=== PATIENT | female | born 1980 | race Caucasian/White ===

== ENCOUNTER 2020-04-28 10:11 | Emergency (ER) | payer MEDICARE, MEDICAID, SELFPAY ==
[2020-04-28 10:20] VITALS: BP 141/93; PULSE 66; RESP 20; TEMP 36.3; O2SAT 99
--- NOTE | 2020-04-28 10:24 | ED.URI ---
HPI - URI/Sore Throat General Chief Complaint: Upper Respiratory Infection Stated Complaint: sore throat/ear pain Time Seen by Provider: 04/28/20 10:24 Source: patient and RN notes reviewed History of Present Illness HPI Narrative: Patient is a 40-year-old female who presents the urgent care with complaints of bilateral otalgia, worse on the right, sore throat, postnasal drainage and congestion. Patient states that she has had exposure to strep with someone in the household. States that she has been using Mucinex and cold and flu medication. Denies of any fever, nausea, vomiting. No other acute complaints. No acute distress noted. Patient aware of the plan of care. Some parts of this dictation were generated by voice recognition software and may contain typographical and/or grammatical inaccuracies. Related Data Allergies Allergy/AdvReac Type Severity Reaction Status Date / Time duloxetine Allergy Severe Anaphylactic Verified 04/28/20 10:32 Shock sertraline Allergy Severe Anaphylactic Verified 04/28/20 10:32 Shock Penicillins Allergy Mild Rash Verified 04/28/20 10:32 Sulfa (Sulfonamide AdvReac Mild Confusion Verified 04/28/20 10:32 Antibiotics) sulfamethoxazole AdvReac Unknown Confusion Verified 04/28/20 10:32 trimethoprim AdvReac Unknown Confusion Verified 04/28/20 10:32 cephalexin [From Keflex] AdvReac Confusion Verified 04/28/20 10:32 Review of Systems Review of Systems: Narrative: CONSTITUTIONAL: Denies fever, chills, or sweats. EYES: Denies visual changes, redness, or discharge. ENT: Reports of otalgia, congestion, sore throat CARDIOVASCULAR: Denies chest pain, palpitations, or edema. RESPIRATORY: Denies cough or dyspnea. GASTROINTESTINAL: Denies abdominal pain, nausea, vomiting, or diarrhea. GENITOURINARY: Denies dysuria or hematuria. SKIN: Denies rash or itching. MUSCULOSKELETAL: Denies back pain, joint pain, or myalgia. NEUROLOGIC: Denies headache, numbness, or weakness. All other systems reviewed are negative, except as documented in HPI. PMFSH Comments At the time of my signature, I reviewed and agree with the nursing past medical, surgical, social, and family history. There is no relevant family history pertinent to the patient complaint. Exam Narrative: Exam Narrative: GENERAL: This is a well-nourished, well-developed patient, in no apparent distress. HEAD: normocephalic, atraumatic. EYES: PERRL. Sclera clear/white. Vision is grossly intact. EARS: External ears normal, auditory canals clear and without drainage, TMs normal without perforation. Hearing grossly intact. NOSE: External nose normal with no obvious nasal discharge, nares without redness, no rhinorrhea. THROAT: Mucous membranes moist, posterior pharynx clear. Mild postnasal drainage NECK: Neck supple, CARDIOVASCULAR: Regular rate and rhythm without murmurs, gallops, or rubs. RESPIRATORY: Clear to auscultation. Breath sounds equal bilaterally. No wheezes, rales, or rhonchi. SKIN: warm, intact with no suspicious lesions or rash, good texture and turgor. NEURO: awake, alert, and oriented to person, place and time. There were no obvious focal neurologic abnormalities. EXTREMITIES: No clubbing, cyanosis, or edema. Course Vital Signs Vital signs: Vital Signs Temperature 97.3 F L 04/28/20 10:20 Pulse Rate 66 04/28/20 10:20 Respiratory Rate 20 04/28/20 10:20 Blood Pressure 141/93 H 04/28/20 10:20 Pulse Oximetry 99 04/28/20 10:20 Temperature 97.3 F L 04/28/20 10:20 Pulse Rate 66 04/28/20 10:20 Respiratory Rate 20 04/28/20 10:20 Blood Pressure 141/93 H 04/28/20 10:20 Pulse Oximetry 99 04/28/20 10:20 Reviewed-patient is informed that they may have pre-hypertension or hypertension based on a blood pressure reading in the department. I recommend the patient call the primary care provider listed on their discharge instructions or a physician of their choice this week to arrange follow-up for further evaluation of
== END 2020-04-28 10:45 | disposition home or self-care (01) ==
PROVIDERS: Emergency Provider Nurse Practitioner Family; PCP Nurse Practitioner Family
DX: J02.9 Acute pharyngitis, unspecified (principal); J45.909 Unspecified asthma, uncomplicated; K21.9 Gastro-esophageal reflux disease without esophagitis; N80.9 Endometriosis, unspecified; F41.9 Anxiety disorder, unspecified; F31.9 Bipolar disorder, unspecified
CPT/HCPCS: 87081; 87880; 99203; G0463

== ENCOUNTER 2021-09-17 16:57 | Emergency (ER) | payer MEDICARE, MEDICAID, SELFPAY ==
--- NOTE | 2021-09-17 17:07 | ED.GENADULT ---
HPI - General Adult General Chief complaint: Headache Stated complaint: Headache/Nausea Time Seen by Provider: 09/17/21 17:15 Source: patient Mode of arrival: ambulatory Limitations: no limitations History of Present Illness HPI narrative: 41-year-old female presented for complaint of headache/migraine, onset yesterday with nausea and vomiting, endorses associated light and sound sensitivity. She has tried Imitrex, Excedrin, Tylenol and ibuprofen without relief. Denies head trauma. Endorses chronic diarrhea, denies chest pain, shortness of breath or cough. She is vaccinated for COVID. Related Data Home Medications Medication Instructions Recorded Confirmed albuterol sulfate [Ventolin HFA] 2 puff INHALATION Q4H 04/28/20 09/17/21 hydroxychloroquine 200 mg PO DAILY 04/28/20 09/17/21 hyoscyamine sulfate 0.125 mg PO Q6H PRN 04/28/20 09/17/21 montelukast 10 mg PO DAILY 04/28/20 09/17/21 pantoprazole 40 mg PO BID 04/28/20 09/17/21 cariprazine [Vraylar] mg 09/17/21 escitalopram oxalate mg 09/17/21 famotidine 09/17/21 fluticasone furoate-vilanterol INHALATION 09/17/21 [Breo Ellipta] hydroxyzine HCl 09/17/21 leflunomide mg 09/17/21 lorazepam 09/17/21 metformin mg PO 09/17/21 sumatriptan succinate mg PO 09/17/21 tofacitinib [Xeljanz XR] mg PO 09/17/21 topiramate 09/17/21 Allergies Allergy/AdvReac Type Severity Reaction Status Date / Time duloxetine Allergy Severe Anaphylactic Verified 09/17/21 17:18 Shock sertraline Allergy Severe Anaphylactic Verified 09/17/21 17:18 Shock Penicillins Allergy Mild Rash Verified 09/17/21 17:18 Sulfa (Sulfonamide AdvReac Mild Confusion Verified 09/17/21 17:18 Antibiotics) sulfamethoxazole AdvReac Unknown Confusion Verified 09/17/21 17:18 trimethoprim AdvReac Unknown Confusion Verified 09/17/21 17:18 cephalexin [From Keflex] AdvReac Confusion Verified 09/17/21 17:18 Review of Systems Review of Systems: CONSTITUTIONAL: Denies body aches, fever, chills, or sweats. EYES: Endorses light sensitivity denies visual changes, redness, or discharge. ENT: Endorses some sensitivity denies rhinorrhea, congestion, sore throat, or otalgia. CARDIOVASCULAR: Denies chest pain, palpitations, or edema. RESPIRATORY: Denies cough or dyspnea. GASTROINTESTINAL: Denies abdominal pain, endorses nausea, vomiting, diarrhea. GENITOURINARY: Denies dysuria or hematuria. SKIN: Denies rash, itching, or wounds. MUSCULOSKELETAL: Denies back pain, joint pain, or myalgia. NEUROLOGIC: Endorses headache denies numbness, tingling, or weakness. PSYCH: Endorses depression or anxiety. All systems reviewed & are unremarkable except as noted in HPI and below PMFSH Comments At time of signature, I have reviewed and agree with nursing past medical, surgical, social and family history unless otherwise noted. Please see nursing chart for further information. There is no relevant family history pertinent to the presenting complaint Exam Narrative: GENERAL: Appears in pain, in no acute distress. HEAD: Normocephalic, atraumatic. EYES: EOMI. No redness or drainage. Conjunctivae normal. ENT: Mucous membranes pink and moist. No rhinorrhea. TMs normal bilaterally. Throat normal. Uvula midline. NECK: Normal AROM. Supple. No lymphadenopathy. CHEST: No respiratory distress. Clear to auscultation. HEART: Regular rate and rhythm. No murmur appreciated. Normal peripheral pulses. ABDOMEN: Large, soft, nontender, nondistended, normal active bowel sounds. MUSCULOSKELETAL: No bony tenderness. EXTREMITIES: Normal range of motion. No edema. SKIN: Warm, dry, no rash. Capillary refill normal. Normal skin turgor. NEURO: No focal deficits. Alert and oriented x3. Gait steady. PSYCH: Normal affect. No signs of depression or anxiety. Course Course Emergency Course: Pt reports improvement in sx after toradol and zofran and benadryl, requesting dc home. Patient is aware of diagnosis, understands and agrees to meri
[2021-09-17 17:10] VITALS: BP 129/79; PULSE 81; RESP 18; TEMP 37.1; O2SAT 98
[2021-09-17] MEDS: ONDANSETRON HCL ODT 4 MG TABLET SUBLINGUAL (17:35)
[2021-09-17] MEDS: diphenhydrAMINE HCl CAP 25 MG CAPSULE PO (17:35)
[2021-09-17] MEDS: KETOROLAC (*BKC) 60 MG/2 ML VIAL IM (17:35)
--- NOTE | 2021-09-17 17:57 | PC.NURSE ---
Pt reports improvement in symptoms, pain 5/10 and decrease in nausea.
== END 2021-09-17 18:15 | disposition home or self-care (01) ==
PROVIDERS: Emergency Provider Nurse Practitioner Family; PCP Nurse Practitioner Family
DX: G43.909 Migraine, unspecified, not intractable, without status migrainosus (principal); J45.909 Unspecified asthma, uncomplicated; K21.9 Gastro-esophageal reflux disease without esophagitis; N80.9 Endometriosis, unspecified; E88.81 Metabolic syndrome and other insulin resistance; H26.9 Unspecified cataract; F41.9 Anxiety disorder, unspecified; F31.9 Bipolar disorder, unspecified
CPT/HCPCS: 96372; 99213; A9270; G0463; J1885

== ENCOUNTER 2021-11-16 18:34 | Emergency (ER) | payer MEDICARE, MEDICAID, SELFPAY ==
--- NOTE | 2021-11-16 18:37 | ED.HA ---
HPI - Headache General Chief Complaint: Upper Respiratory Infection Stated Complaint: migraine Time Seen by Provider: 11/16/21 18:38 Source: patient and RN notes reviewed History of Present Illness HPI Narrative: Patient is a 41-year-old female who presents the urgent care with complaints of migraine. Patient states she has a history of migraines and does have prescription Imitrex. Patient states that she did take 1 at 6 AM and has not yet refilled the medication that was called in for her this morning. Patient states that she did try Excedrin Migraine without much relief. States that she has her normal sensitivity to light and sound. Patient also reported of some nausea and vomiting. Denies of any vision change. States that the migraine started approximately 4 days ago. States that the last time she was at her facility the migraine cocktail improved her symptoms. No other acute complaints. No acute distress noted. Patient aware of the plan of care. Some parts of this dictation were generated by voice recognition software and may contain typographical and/or grammatical inaccuracies. Related Data Home Medications Medication Instructions Recorded Confirmed albuterol sulfate [Ventolin HFA] 2 puff INHALATION Q4H PRN 04/28/20 11/16/21 hydroxychloroquine 200 mg PO BID 04/28/20 11/16/21 montelukast 10 mg PO DAILY 04/28/20 11/16/21 pantoprazole 40 mg PO DAILY 04/28/20 11/16/21 cariprazine [Vraylar] 1.5 mg PO HS 09/17/21 11/16/21 escitalopram oxalate 20 mg PO DAILY 09/17/21 11/16/21 famotidine 20 mg PO DAILY 09/17/21 11/16/21 fluticasone furoate-vilanterol 1 inh INHALATION BID 09/17/21 11/16/21 [Breo Ellipta] hydroxyzine HCl 25 mg PO HS 09/17/21 11/16/21 leflunomide 20 mg PO DAILY 09/17/21 11/16/21 lorazepam 0.5 mg PO DAILY 09/17/21 11/16/21 metformin 500 mg PO DAILY 09/17/21 11/16/21 sumatriptan succinate 100 mg PO PRN PRN 09/17/21 11/16/21 topiramate 50 mg PO DAILY 09/17/21 11/16/21 enalapril maleate 5 mg PO BID 11/16/21 11/16/21 ergocalciferol (vitamin D2) 1,250 mcg PO WEEKLY 11/16/21 11/16/21 fluticasone propionate 2 spray INTRANASAL DAILY 11/16/21 11/16/21 upadacitinib [Rinvoq] 15 mg PO DAILY 11/16/21 11/16/21 Allergies Allergy/AdvReac Type Severity Reaction Status Date / Time duloxetine Allergy Severe Anaphylactic Verified 11/16/21 18:55 Shock sertraline Allergy Severe Anaphylactic Verified 11/16/21 18:55 Shock Penicillins Allergy Mild Rash Verified 11/16/21 18:55 Sulfa (Sulfonamide AdvReac Mild Confusion Verified 11/16/21 18:55 Antibiotics) sulfamethoxazole AdvReac Unknown Confusion Verified 11/16/21 18:55 trimethoprim AdvReac Unknown Confusion Verified 11/16/21 18:55 cephalexin [From Keflex] AdvReac Confusion Verified 11/16/21 18:55 Review of Systems Review of Systems: CONSTITUTIONAL: Denies fever, chills, or sweats. EYES: Denies visual changes, redness, or discharge. ENT: Denies rhinorrhea, congestion, sore throat, or otalgia. CARDIOVASCULAR: Denies chest pain, palpitations, or edema. RESPIRATORY: Denies cough or dyspnea. GASTROINTESTINAL: Denies abdominal pain, nausea, vomiting, or diarrhea. GENITOURINARY: Denies dysuria or hematuria. SKIN: Denies rash or itching. MUSCULOSKELETAL: Denies back pain, joint pain, or myalgia. NEUROLOGIC: Reports of headache All other systems reviewed are negative, except as documented in HPI. PMFSH Comments At the time of my signature, I reviewed and agree with the nursing past medical, surgical, social, and family history. There is no relevant family history pertinent to the patient complaint. Exam Narrative: GENERAL: This is a well-nourished, well-developed patient, in no apparent distress. HEAD: normocephalic, atraumatic. EYES: PERRL. Sclera clear/white. Vision is grossly intact. EARS: External ears normal, auditory canals clear and without drainage, TMs normal without perforation. Hearing grossly intact. NOSE: External nose normal with no obvious nasal dischar
[2021-11-16 18:39] VITALS: BP 126/80; PULSE 88; RESP 18; TEMP 36.4; O2SAT 99
[2021-11-16] MEDS: ONDANSETRON HCL ODT 4 MG TABLET PO (19:23)
[2021-11-16] MEDS: KETOROLAC (*BKC) 60 MG/2 ML VIAL IM (19:24)
[2021-11-16] MEDS: diphenhydrAMINE HCl CAP 25 MG CAPSULE PO (19:25)
== END 2021-11-16 19:54 | disposition home or self-care (01) ==
PROVIDERS: Emergency Provider Nurse Practitioner Family; PCP Nurse Practitioner Family
DX: G43.909 Migraine, unspecified, not intractable, without status migrainosus (principal); J45.909 Unspecified asthma, uncomplicated; K21.9 Gastro-esophageal reflux disease without esophagitis; N80.9 Endometriosis, unspecified; F41.9 Anxiety disorder, unspecified; F32.A Depression, unspecified; Z79.84 Long term (current) use of oral hypoglycemic drugs
CPT/HCPCS: 96372; 99213; A9270; G0463; J1885

== ENCOUNTER 2022-06-07 09:29 | Emergency (ER) | payer MEDICARE, MEDICAID, SELFPAY ==
[2022-06-07 09:34] VITALS: BP 154/89; PULSE 86; RESP 20; TEMP 36.7; O2SAT 99
--- NOTE | 2022-06-07 10:14 | ED.SOB ---
HPI - SOB/Dyspnea General Chief Complaint: Shortness of Breath/Dyspnea Stated Complaint: Shortness of Breath Time Seen by Provider: 06/07/22 09:33 Source: patient and RN notes reviewed Mode of arrival: ambulatory Limitations: no limitations History of Present Illness HPI Narrative: 42-year-old female presents concern for shortness of breath. Reports several week history of cough, nasal congestion, rhinorrhea. Reports over the last 3 days her cough has worsened and she has developed shortness of breath at rest and with exertion, stridor. She reports a history of tracheal stenosis. She reports she has never been hospitalized for tracheal stenosis, never had have a breathing tube. She reports she has been taking [id number] medications without relief, she is nebulizer treatment this morning at 6:30 a.m.. She denies fever, aches, chills. She reports she has had a negative RSV and test MD elicited complaint: shortness of breath Related Data Home Medications Medication Instructions Recorded Confirmed albuterol sulfate 90 mcg/actuation 2 puff inhalation Q4H PRN 04/28/20 06/07/22 aerosol inhaler (Ventolin HFA) Shortness Of Breath Or Wheezing hydroxychloroquine 200 mg tablet 200 mg PO BID 04/28/20 06/07/22 montelukast 10 mg tablet 10 mg PO DAILY 04/28/20 06/07/22 pantoprazole 40 mg tablet,delayed 40 mg PO DAILY 04/28/20 06/07/22 release cariprazine 1.5 mg capsule 3 mg PO HS 09/17/21 06/07/22 (Vraylar) escitalopram oxalate 20 mg tablet 20 mg PO DAILY 09/17/21 06/07/22 leflunomide 20 mg tablet 20 mg PO DAILY 09/17/21 06/07/22 lorazepam 0.5 mg tablet 0.5 mg PO DAILY 09/17/21 06/07/22 metformin 500 mg tablet,extended 500 mg PO DAILY 09/17/21 06/07/22 release 24 hr sumatriptan succinate 100 mg tablet 100 mg PO PRN PRN Headache 09/17/21 06/07/22 topiramate 50 mg tablet 50 mg PO DAILY 09/17/21 06/07/22 enalapril maleate 5 mg tablet 5 mg PO BID 11/16/21 06/07/22 ergocalciferol (vitamin D2) 1,250 1,250 mcg PO WEEKLY 11/16/21 06/07/22 mcg (50,000 unit) capsule dicyclomine 10 mg capsule 10 mg DAILY 06/07/22 06/07/22 golimumab 12.5 mg/mL intravenous mg IV 06/07/22 06/07/22 solution (Simponi ARIA) ramelteon 8 mg tablet 8 mg PO 06/07/22 Allergies Allergy/AdvReac Type Severity Reaction Status Date / Time duloxetine Allergy Severe Anaphylactic Verified 06/07/22 10:01 Shock sertraline Allergy Severe Anaphylactic Verified 06/07/22 10:01 Shock Penicillins Allergy Mild Rash Verified 06/07/22 10:01 Sulfa (Sulfonamide AdvReac Mild Confusion Verified 06/07/22 10:01 Antibiotics) sulfamethoxazole AdvReac Unknown Confusion Verified 06/07/22 10:01 trimethoprim AdvReac Unknown Confusion Verified 06/07/22 10:01 cephalexin [From Keflex] AdvReac Confusion Verified 06/07/22 10:01 Review of Systems Review of Systems: CONSTITUTIONAL: Reports malaise. Denies chills, sweats, or fever. EYES: Denies visual changes, redness, or discharge. ENT: Reports rhinorrhea, congestion, sinus pain, otalgia and sore throat. CARDIOVASCULAR: Denies chest pain, palpitations, or edema. RESPIRATORY: Reports cough, stridor, dyspnea. GASTROINTESTINAL: Denies abdominal pain, nausea, vomiting, diarrhea SKIN: Denies rash or itching. MUSCULOSKELETAL: Denies myalgia. NEUROLOGIC: Denies headache. All systems reviewed & are unremarkable except as noted in HPI and below PMFSH Comments At time of signature, agree with nursing past medical, surgical, social and family history. There is no relevant family history pertinent to the presenting complaint Exam Narrative: GENERAL: Nontoxic-appearing And in no acute distress. HEAD: Normocephalic EYES: PERRLA, conjunctivae clear ENT: Nares clear. Mucous membranes moist. TM pearly martínez with dull light reflex bilaterally; no tragal tenderness. Oropharynx not erythematous without lesions. Tonsils not enlarged and without exudate, no drooling, mild hoarseness, no trismus, uvula midline. No visible airway obstruction
[2022-06-07] MEDS: methylPREDNISolone SOD SUCC 125 MG VIAL IM (10:28)
[2022-06-07 10:32] VITALS: PULSE 98; RESP 16; O2SAT 98
[2022-06-07] MEDS: racEPINEPHrine 2.25% NEBU SOLN 0.5 ML VIAL.NEB INHALATION (10:32)
--- NOTE | 2022-06-07 10:38 | PC.NURSE ---
Breathing treatment started. Diluted with 3 mL NS per ENVIRONMENTAL SERVICES TECHNICIAN Yajaira. Procedure, side effects and risks explained. Proper technique demonstrated.
[2022-06-07 10:42] VITALS: PULSE 99; RESP 18; O2SAT 98
[2022-06-07 11:02] VITALS: PULSE 99; RESP 18; O2SAT 98
--- NOTE | 2022-06-07 11:02 | PC.NURSE ---
Tolerated breathing treatment well. SpO2 98% on room air, HR 99 percent. Lung sounds clear, moving air well. Improvement from prior to treatment.
[2022-06-07 11:15] VITALS: PULSE 90; RESP 16; O2SAT 95
== END 2022-06-07 11:15 | disposition home or self-care (01) ==
PROVIDERS: Emergency Provider Nurse Practitioner; PCP Nurse Practitioner Family
DX: J20.9 Acute bronchitis, unspecified (principal); Z79.84 Long term (current) use of oral hypoglycemic drugs
CPT/HCPCS: 94640; 96372; 99213; G0463; J2930

== ENCOUNTER 2022-06-13 12:55 | Emergency (ER) | payer MEDICARE, MEDICAID, SELFPAY ==
--- NOTE | ~2022-06-13 | XR_ITS ---
EXAMINATION: XR knee LT min 4V DATE: 06/13/2022 14:54 INDICATION: Left knee swelling and erythema. TECHNIQUE: 5 views of left knee were obtained. COMPARISON: None. FINDINGS: Bone alignment is normal. No fracture. There is mild tricompartmental osteoarthritis. No kn ee joint effusion. There is anterior knee soft tissue swelling. IMPRESSION: 1. Mild left knee osteoarthritis. Reviewed, dictated and finalized at location A. R [employer]
[2022-06-13 13:10] VITALS: BP 152/89; PULSE 88; RESP 24; TEMP 36.5; O2SAT 98
--- NOTE | 2022-06-13 14:28 | ED.EXTPRO ---
HPI - Extremity Problem General Chief complaint: Extremity Problem,Nontraumatic Stated complaint: Left knee red -swollen Time Seen by Provider: 06/13/22 14:28 Source: patient and RN notes reviewed Mode of arrival: ambulatory Limitations: no limitations History of Present Illness HPI Narrative: 42-year-old female presents concern for left knee redness, swelling, warmth, pain. Reports pain is worse when she is walking on it. She denies any injury or trauma. She denies fever, aches, chills, sweats. She denies history of gout MD Complaint: extremity pain Related Data Home Medications Medication Instructions Recorded Confirmed albuterol sulfate 90 mcg/actuation 2 puff inhalation Q4H PRN 04/28/20 06/07/22 aerosol inhaler (Ventolin HFA) Shortness Of Breath Or Wheezing hydroxychloroquine 200 mg tablet 200 mg PO BID 04/28/20 06/07/22 montelukast 10 mg tablet 10 mg PO DAILY 04/28/20 06/07/22 pantoprazole 40 mg tablet,delayed 40 mg PO DAILY 04/28/20 06/07/22 release cariprazine 1.5 mg capsule 3 mg PO HS 09/17/21 06/07/22 (Vraylar) escitalopram oxalate 20 mg tablet 20 mg PO DAILY 09/17/21 06/07/22 leflunomide 20 mg tablet 20 mg PO DAILY 09/17/21 06/07/22 lorazepam 0.5 mg tablet 0.5 mg PO DAILY 09/17/21 06/07/22 metformin 500 mg tablet,extended 500 mg PO DAILY 09/17/21 06/07/22 release 24 hr sumatriptan succinate 100 mg tablet 100 mg PO PRN PRN Headache 09/17/21 06/07/22 topiramate 50 mg tablet 50 mg PO DAILY 09/17/21 06/07/22 enalapril maleate 5 mg tablet 5 mg PO BID 11/16/21 06/07/22 ergocalciferol (vitamin D2) 1,250 1,250 mcg PO WEEKLY 11/16/21 06/07/22 mcg (50,000 unit) capsule dicyclomine 10 mg capsule 10 mg DAILY 06/07/22 06/07/22 golimumab 12.5 mg/mL intravenous mg IV 06/07/22 06/07/22 solution (Simponi ARIA) ramelteon 8 mg tablet 8 mg PO 06/07/22 Allergies Allergy/AdvReac Type Severity Reaction Status Date / Time duloxetine Allergy Severe Anaphylactic Verified 06/07/22 10:01 Shock sertraline Allergy Severe Anaphylactic Verified 06/07/22 10:01 Shock Penicillins Allergy Mild Rash Verified 06/07/22 10:01 Sulfa (Sulfonamide AdvReac Mild Confusion Verified 06/07/22 10:01 Antibiotics) sulfamethoxazole AdvReac Unknown Confusion Verified 06/07/22 10:01 trimethoprim AdvReac Unknown Confusion Verified 06/07/22 10:01 cephalexin [From Keflex] AdvReac Confusion Verified 06/07/22 10:01 Review of Systems Review of Systems: CONSTITUTIONAL: Denies malaise, chills, sweats, or fever. CARDIOVASCULAR: Denies chest pain, palpitations, or edema. RESPIRATORY: Denies cough or dyspnea. SKIN: Denies rash or itching, bruising, redness, swelling. MUSCULOSKELETAL: Reports left knee redness, warmth, swelling, pain NEUROLOGIC: Denies numbness, weakness All systems reviewed & are unremarkable except as noted in HPI and below PMFSH Comments At time of signature, agree with nursing past medical, surgical, social and family history. There is no relevant family history pertinent to the presenting complaint Exam Narrative: GENERAL: Well-appearing, well-nourished, and in no acute distress. HEAD: Normocephalic, atraumatic. EYES: PERRLA, conjunctivae clear NECK: Supple. CHEST: Speaks in full sentences. No respiratory distress. HEART: Regular rate and rhythm. Normal and equal peripheral pulses. EXTREMITIES: Left knee has grossly normal strength and sensation, normal range of motion. No edema or ecchymosis. 5/5 strength with knee flexion and extension. Normal sensation with sensitivity to light touch and pain. General the tenderness with erythema, warmth with well-defined edges, no gross edema or induration noted. No open wounds, no skin tenting, no devitalized tissue or atrophy, no trophic changes, no obvious deformity, alignment normal, nearby joints and structures intact. Distal pulses palpable and equal bilaterally, skin warm, dry, pink. Capillary refill less than 3 seconds. SKIN: Warm, dry, no rash. NEURO: Alert and oriented x3
== END 2022-06-13 15:25 | disposition home or self-care (01) ==
PROVIDERS: Emergency Provider Nurse Practitioner; PCP Nurse Practitioner Family
DX: L03.116 Cellulitis of left lower limb (principal); J45.909 Unspecified asthma, uncomplicated; K21.9 Gastro-esophageal reflux disease without esophagitis; E88.81 Metabolic syndrome and other insulin resistance; N80.9 Endometriosis, unspecified
CPT/HCPCS: 73564; 99213; G0463

== ENCOUNTER 2022-06-28 08:48 | Emergency (ER) | payer MEDICARE, MEDICAID, SELFPAY ==
[2022-06-28 08:58] VITALS: BP 130/79; PULSE 83; RESP 20; TEMP 36.4; O2SAT 98
--- NOTE | 2022-06-28 09:35 | ED.URI ---
HPI - URI/Sore Throat General Chief Complaint: Upper Respiratory Infection Stated Complaint: Cough/Sore Throat Time Seen by Provider: 06/28/22 09:36 Source: patient and RN notes reviewed Mode of arrival: ambulatory Limitations: no limitations History of Present Illness HPI Narrative: 42-year-old female with a history of asthma and tracheal stenosis presented for complaint of wheezing associated with headache, body aches, sinus pressure/congestion, cough, fever/chills. 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 She has been using her albuterol nebulizer as needed. She is chest pain, palpitations, nausea, vomiting, diarrhea. She is taking [place] and the Tylenol ibuprofen for symptoms. MD elicited complaint: cough Related Data Home Medications Medication Instructions Recorded Confirmed albuterol sulfate 90 mcg/actuation 2 puff inhalation Q4H PRN 04/28/20 06/07/22 aerosol inhaler (Ventolin HFA) Shortness Of Breath Or Wheezing hydroxychloroquine 200 mg tablet 200 mg PO BID 04/28/20 06/07/22 montelukast 10 mg tablet 10 mg PO DAILY 04/28/20 06/07/22 pantoprazole 40 mg tablet,delayed 40 mg PO DAILY 04/28/20 06/07/22 release cariprazine 1.5 mg capsule 3 mg PO HS 09/17/21 06/07/22 (Vraylar) escitalopram oxalate 20 mg tablet 20 mg PO DAILY 09/17/21 06/07/22 leflunomide 20 mg tablet 20 mg PO DAILY 09/17/21 06/07/22 lorazepam 0.5 mg tablet 0.5 mg PO DAILY 09/17/21 06/07/22 metformin 500 mg tablet,extended 500 mg PO DAILY 09/17/21 06/07/22 release 24 hr sumatriptan succinate 100 mg tablet 100 mg PO PRN PRN Headache 09/17/21 06/07/22 topiramate 50 mg tablet 50 mg PO DAILY 09/17/21 06/07/22 enalapril maleate 5 mg tablet 5 mg PO BID 11/16/21 06/07/22 ergocalciferol (vitamin D2) 1,250 1,250 mcg PO WEEKLY 11/16/21 06/07/22 mcg (50,000 unit) capsule dicyclomine 10 mg capsule 10 mg DAILY 06/07/22 06/07/22 golimumab 12.5 mg/mL intravenous mg IV 06/07/22 06/07/22 solution (Simponi ARIA) ramelteon 8 mg tablet 8 mg PO 06/07/22 Allergies Allergy/AdvReac Type Severity Reaction Status Date / Time duloxetine Allergy Severe Anaphylactic Verified 06/28/22 09:24 Shock sertraline Allergy Severe Anaphylactic Verified 06/28/22 09:24 Shock Penicillins Allergy Mild Rash Verified 06/28/22 09:24 Sulfa (Sulfonamide AdvReac Mild Confusion Verified 06/28/22 09:24 Antibiotics) sulfamethoxazole AdvReac Unknown Confusion Verified 06/28/22 09:24 trimethoprim AdvReac Unknown Confusion Verified 06/28/22 09:24 cephalexin [From Keflex] AdvReac Confusion Verified 06/28/22 09:24 Review of Systems Review of Systems: ROS per HPI Exam Narrative: GENERAL: Ill-appearing, nontoxic EYES: PERRLA, conjunctivae clear ENT: Mucous membranes moist. TMs pearly martínez with dull light reflex bilaterally; no tragal tenderness. No tripod positioning, muffled voice, soft palate or pharyngeal wall bulging NECK: Supple. No lymphadenopathy CHEST: Exp wheezing throughout all owens. No respiratory distress, speaks in full sentences. HEART: Regular rate and rhythm. No murmur heard. SKIN: Warm, dry, no rash. NEURO: Alert and oriented x3. PSYCH: Normal mood and affect Course Course Emergency Course: Patient is aware of diagnosis, understands and agrees to treatment plan. Anticipatory guidance given. Patient agrees to follow-up as directed and is aware of reasons to seek care at the emergency department. Portions of this record may have been created with voice recognition software Level of Care: Express Care Visit Vital Signs Vital signs: Vital Signs Temperature 97.6 F 06/28/22 08:58 Pulse Rate 83 06/28/22 08:58 Respiratory Rate 20 06/28/22 08:58 Blood Pressure 130/79 06/28/22 08:58 Pulse Oximetry 98 06/28/22 08:58 Oxygen Delivery Room Air 06/28/22 08:58 Temperature 97.6 F 06/28/22 08:58 Pulse Rate 83 06/28/22 08:58 Respiratory Rate 20 06/28/22 08:58 Blood Pressure 130/79
[2022-06-28] MEDS: predniSONE 20 MG TABLET 60 MG PO (09:50)
== END 2022-06-28 09:58 | disposition home or self-care (01) ==
PROVIDERS: Emergency Provider Nurse Practitioner Family; PCP Nurse Practitioner Family
DX: J40 Bronchitis, not specified as acute or chronic (principal)
CPT/HCPCS: 99213; G0463; J7512

== ENCOUNTER 2022-07-27 11:24 | Emergency (ER) | payer MEDICARE, MEDICAID, SELFPAY ==
--- NOTE | 2022-07-27 11:26 | ED.URI ---
HPI - URI/Sore Throat General Chief Complaint: Upper Respiratory Infection Stated Complaint: tracheal stenosis Time Seen by Provider: 07/27/22 11:26 Source: patient and RN notes reviewed History of Present Illness HPI Narrative: patient is a 42-year-old female presents to urgent care with complaints of flare tracheal stenosis. Patient states that her PCP will not see her for any upper respiratory related condition. Patient states that she always gets steroids and it makes it better. Patient states that it worsened with the weather change a couple weeks ago and then again approximately 5 days ago. The patient denies any other acute complaints. States that she has seen a tv news director is currently seen ENT for the issue. Patient aware of the plan of care. Some parts of this dictation were generated by voice recognition software and may contain typographical and/or grammatical inaccuracies. Related Data Home Medications Medication Instructions Recorded Confirmed hydroxychloroquine 200 mg tablet 200 mg PO BID 04/28/20 07/27/22 montelukast 10 mg tablet 10 mg PO DAILY 04/28/20 07/27/22 pantoprazole 40 mg tablet,delayed 40 mg PO DAILY 04/28/20 07/27/22 release escitalopram oxalate 20 mg tablet 20 mg PO DAILY 09/17/21 07/27/22 leflunomide 20 mg tablet 20 mg PO DAILY 09/17/21 07/27/22 metformin 500 mg tablet,extended 500 mg PO DAILY 09/17/21 07/27/22 release 24 hr topiramate 50 mg tablet 50 mg PO DAILY 09/17/21 07/27/22 enalapril maleate 5 mg tablet 5 mg PO BID 11/16/21 07/27/22 ergocalciferol (vitamin D2) 1,250 1,250 mcg PO WEEKLY 11/16/21 07/27/22 mcg (50,000 unit) capsule cariprazine 3 mg capsule (Vraylar) 3 mg PO HS 06/28/22 07/27/22 pregabalin 75 mg capsule 75 mg PO BID 06/28/22 07/27/22 Allergies Allergy/AdvReac Type Severity Reaction Status Date / Time duloxetine Allergy Severe Anaphylactic Verified 07/27/22 11:36 Shock sertraline Allergy Severe Anaphylactic Verified 07/27/22 11:36 Shock Penicillins Allergy Mild Rash Verified 07/27/22 11:36 Sulfa (Sulfonamide AdvReac Mild Confusion Verified 07/27/22 11:36 Antibiotics) sulfamethoxazole AdvReac Unknown Confusion Verified 07/27/22 11:36 trimethoprim AdvReac Unknown Confusion Verified 07/27/22 11:36 cephalexin [From Keflex] AdvReac Confusion Verified 07/27/22 11:36 Review of Systems Review of Systems: CONSTITUTIONAL: Denies fever, chills, or sweats. EYES: Denies visual changes, redness, or discharge. ENT: Denies rhinorrhea, congestion, sore throat, or otalgia. CARDIOVASCULAR: Denies chest pain, palpitations, or edema. RESPIRATORY: Reports of shortness of breath due to tracheal stenosis GASTROINTESTINAL: Denies abdominal pain, nausea, vomiting, or diarrhea. GENITOURINARY: Denies dysuria or hematuria. SKIN: Denies rash or itching. MUSCULOSKELETAL: Denies back pain, joint pain, or myalgia. NEUROLOGIC: Denies headache, numbness, or weakness. PSYCHIATRIC: Denies anxiety or depression. All other systems reviewed are negative, except as documented in HPI. PMFSH Comments At the time of my signature, I reviewed and agree with the nursing past medical, surgical, social, and family history. There is no relevant family history pertinent to the patient complaint. Exam Narrative: GENERAL: This is a well-nourished, well-developed patient, severe obesity HEAD: normocephalic, atraumatic. EYES: PERRL. Sclera clear/white. Vision is grossly intact. EARS: External ears normal, auditory canals clear and without drainage, TMs normal without perforation. Hearing grossly intact. NOSE: External nose normal with no obvious nasal discharge, nares without redness, no rhinorrhea. THROAT: Mucous membranes moist, posterior pharynx clear. patent airway NECK: Neck supple, non-tender without lymphadenopathy CARDIOVASCULAR: Regular rate and rhythm without murmurs, gallops, or rubs. RESPIRATORY: Clear to auscultation. Breath sounds equal bilaterally. audible crackles SKIN: wa
[2022-07-27 11:29] VITALS: BP 150/90; PULSE 94; RESP 16; TEMP 36.1; O2SAT 99
== END 2022-07-27 11:43 | disposition home or self-care (01) ==
PROVIDERS: Emergency Provider Nurse Practitioner Family; PCP Nurse Practitioner Family
DX: J39.8 Other specified diseases of upper respiratory tract (principal); J45.909 Unspecified asthma, uncomplicated; M19.90 Unspecified osteoarthritis, unspecified site; E88.81 Metabolic syndrome and other insulin resistance; N80.9 Endometriosis, unspecified; F31.9 Bipolar disorder, unspecified
CPT/HCPCS: 99213; G0463

== ENCOUNTER 2023-03-30 12:13 | Emergency (ER) | payer MEDICARE, MEDICAID, SELFPAY ==
[2023-03-30 12:20] VITALS: BP 125/92; PULSE 75; RESP 16; TEMP 36.5; O2SAT 99
--- NOTE | 2023-03-30 12:29 | ED.GENADULT ---
HPI - General Adult General Chief complaint: Upper Respiratory Infection Stated complaint: Shortness Of Breath/Cough Source: patient and RN notes reviewed History of Present Illness HPI narrative: 42 year female presents urgent care with complaints headache, some congestion, and cough since Monday. Patient took a COVID test at home on Monday which was negative. Pt states her head and throat will hurt when she coughs. Pt states she hasn't slept in 3 nights b/c of the cough. Denies any chest pain, SOB, ear pain, N/V/D Pt has been using her inhaler and neb treatment at home with some relief. Related Data Home Medications Medication Instructions Recorded Confirmed hydroxychloroquine 200 mg tablet 200 mg PO BID 04/28/20 07/27/22 pantoprazole 40 mg tablet,delayed 40 mg PO DAILY 04/28/20 07/27/22 release escitalopram oxalate 20 mg tablet 20 mg PO DAILY 09/17/21 07/27/22 leflunomide 20 mg tablet 20 mg PO DAILY 09/17/21 07/27/22 metformin 500 mg tablet,extended 500 mg PO DAILY 09/17/21 07/27/22 release 24 hr topiramate 50 mg tablet 50 mg PO DAILY 09/17/21 07/27/22 enalapril maleate 5 mg tablet 5 mg PO BID 11/16/21 07/27/22 ergocalciferol (vitamin D2) 1,250 1,250 mcg PO WEEKLY 11/16/21 07/27/22 mcg (50,000 unit) capsule cariprazine 3 mg capsule (Vraylar) 3 mg PO HS 06/28/22 07/27/22 pregabalin 75 mg capsule 75 mg PO BID 06/28/22 07/27/22 Allergies Allergy/AdvReac Type Severity Reaction Status Date / Time duloxetine Allergy Severe Anaphylactic Verified 07/27/22 11:36 Shock sertraline Allergy Severe Anaphylactic Verified 07/27/22 11:36 Shock Penicillins Allergy Mild Rash Verified 07/27/22 11:36 Sulfa (Sulfonamide AdvReac Mild Confusion Verified 07/27/22 11:36 Antibiotics) sulfamethoxazole AdvReac Unknown Confusion Verified 07/27/22 11:36 trimethoprim AdvReac Unknown Confusion Verified 07/27/22 11:36 cephalexin [From Keflex] AdvReac Confusion Verified 07/27/22 11:36 Review of Systems Review of Systems: Pertinent positives and pertinent negatives per HPI. PMFSH Comments At the time of my signature, I reviewed and agree with the nursing past medical, surgical, social, and family history. There is no relevant family history pertinent to the patient complaint. Exam Narrative: GENERAL: This is a well-nourished, well-developed patient, in no apparent distress. HEAD: normocephalic, atraumatic. EYES: Sclera clear/white. Vision is grossly intact. EARS: External ears normal, auditory canals clear and without drainage, TMs normal without perforation. Hearing grossly intact. NOSE: External nose normal with no obvious nasal discharge, nares without redness, no rhinorrhea. THROAT: Mucous membranes moist, posterior pharynx clear. NECK: Neck supple, non-tender without lymphadenopathy, masses or thyromegaly. CARDIOVASCULAR: Regular rate and rhythm without murmurs, gallops, or rubs. RESPIRATORY: Clear to auscultation. Breath sounds equal bilaterally. No wheezes, rales, or rhonchi. Pt frequently coughing in exam room. GASTROINTESTINAL: Abdomen soft, non-tender, nondistended. Bowel sounds are active. No hepato-splenomegaly, or palpable masses. No guarding. SKIN: warm, intact with no suspicious lesions or rash, good texture and turgor. NEURO: awake, alert, and oriented to person, place and time. There were no obvious focal neurologic abnormalities. Course Course Level of Care: Express Care Visit Vital Signs Vital signs: Vital Signs Temperature 97.7 F 03/30/23 12:20 Pulse Rate 75 03/30/23 12:20 Respiratory Rate 16 03/30/23 12:20 Blood Pressure 125/92 H 03/30/23 12:20 Pulse Oximetry 99 03/30/23 12:20 Oxygen Delivery Room Air 03/30/23 12:20 Temperature 97.7 F 03/30/23 12:20 Pulse Rate 75 03/30/23 12:20 Respiratory Rate 16 03/30/23 12:20 Blood Pressure 125/92 H 03/30/23 12:20 Pulse Oximetry 99 03/30/23 12:20 Oxygen Delivery Room Air 03/30/23 12:20 reviewed. Medical
[2023-03-30] MEDS: predniSONE 20 MG TABLET 60 MG PO (12:42)
== END 2023-03-30 12:46 | disposition home or self-care (01) ==
PROVIDERS: Emergency Provider Nurse Practitioner Family; PCP Nurse Practitioner Family
DX: J40 Bronchitis, not specified as acute or chronic (principal); J45.909 Unspecified asthma, uncomplicated; M19.90 Unspecified osteoarthritis, unspecified site; E88.81 Metabolic syndrome and other insulin resistance; Z79.84 Long term (current) use of oral hypoglycemic drugs; N80.9 Endometriosis, unspecified
CPT/HCPCS: 99213; G0463; J7512

== ENCOUNTER 2023-11-05 17:34 | Emergency (ER) | payer MEDICARE, MEDICAID, SELFPAY ==
--- NOTE | 2023-11-05 17:41 | ED.URI ---
HPI - URI/Sore Throat General Chief Complaint: Unspecified Stated Complaint: Shortness of Breath History of Present Illness HPI Narrative: Patient possible allergic reaction to her Trulicity and or a flare of her tracheasl stenosis. Patient states she started Trulicity monday and woke up this am with her hoarseness. No shortness of breath and no chest pain. Patient states she has not had any problems with her stenosis in over one year. patient denies any trouble swallowing and no drooling. talking in full sentences. Related Data Home Medications Medication Instructions Recorded Confirmed hydroxychloroquine 200 mg tablet 200 mg PO BID 04/28/20 07/27/22 pantoprazole 40 mg tablet,delayed 40 mg PO DAILY 04/28/20 07/27/22 release escitalopram oxalate 20 mg tablet 20 mg PO DAILY 09/17/21 07/27/22 leflunomide 20 mg tablet 20 mg PO DAILY 09/17/21 07/27/22 metformin 500 mg tablet,extended 500 mg PO DAILY 09/17/21 07/27/22 release 24 hr topiramate 50 mg tablet 50 mg PO DAILY 09/17/21 07/27/22 enalapril maleate 5 mg tablet 5 mg PO BID 11/16/21 07/27/22 ergocalciferol (vitamin D2) 1,250 1,250 mcg PO WEEKLY 11/16/21 07/27/22 mcg (50,000 unit) capsule cariprazine 3 mg capsule (Vraylar) 3 mg PO HS 06/28/22 07/27/22 pregabalin 75 mg capsule 75 mg PO BID 06/28/22 07/27/22 Allergies Allergy/AdvReac Type Severity Reaction Status Date / Time duloxetine Allergy Severe Anaphylactic Verified 07/27/22 11:36 Shock sertraline Allergy Severe Anaphylactic Verified 07/27/22 11:36 Shock Penicillins Allergy Mild Rash Verified 07/27/22 11:36 Sulfa (Sulfonamide AdvReac Mild Confusion Verified 07/27/22 11:36 Antibiotics) sulfamethoxazole AdvReac Unknown Confusion Verified 07/27/22 11:36 trimethoprim AdvReac Unknown Confusion Verified 07/27/22 11:36 cephalexin [From Keflex] AdvReac Confusion Verified 07/27/22 11:36 Review of Systems Review of Systems: CONSTITUTIONAL: Denies chills, or sweats. Reports fever and generalized body aches EYES: Denies visual changes, redness, or discharge. ENT: Denies otalgia. Reports nasal congestion runny nose and sore throat CARDIOVASCULAR: Denies chest pain, palpitations, or edema. RESPIRATORY: Denies dyspnea. Reports occasional cough GASTROINTESTINAL: Denies abdominal pain, nausea, vomiting, or diarrhea. GENITOURINARY: Denies dysuria or hematuria. SKIN: Denies rash or itching. MUSCULOSKELETAL: Denies back pain, joint pain, or myalgia. Reports generalized body aches NEUROLOGIC: Denies headache, numbness, or weakness. PSYCHIATRIC: Denies anxiety or depression. [facility] Comments At time of signature, agree with nursing past medical, surgical, social and family history. There is no relevant family history pertinent to the presenting complaint Exam Narrative: The patient is a well-developed, well-nourished in no acute distress. SKIN: Skin is warm and dry without erythema, swelling or exudate. There is good turgor. No tenting. HEAD: Atraumatic. Normocephalic. No temporal or scalp tenderness. EYES: Moist and bright. Sclera and conjunctivae normal. No discharge. PERRLA. Extraocular motions intact. Gross visual acuity intact. EARS: Pinna is normal shape and contour. Clear external auditory canals. TM pearly abarca with good cone of light, no erythema or suppuration. Bilateral cerumen noted no gross hearing deficit. NOSE: pink, moist mucosa with good air movement. Clear rhinorrhea without nasal flaring. Septum midline. Mouth: moist mucous membranes. THROAT; mild erythema noted to posterior oropharynx with moderate postnasal drainage. Without exudate or ulceration.. Uvula midline. Normal movement of soft palate. NECK: Supple and nontender with full range of motion without discomfort. No meningeal signs. LUNGS: Equal and bilateral breath sounds without wheezes, rales or rhonchi. CHEST: The chest wall is without retractions or use of accessory muscles. HEART: Has a regular rate and rhythm without murm
[2023-11-05 17:44] VITALS: BP 135/81; PULSE 76; RESP 24; TEMP 36.4; O2SAT 99
[2023-11-05 17:51] VITALS: RESP 22
[2023-11-05] MEDS: methylPREDNISolone SOD SUCC 125 MG VIAL IM (18:00)
--- NOTE | 2023-11-05 18:23 | ED.GENADULT ---
HPI - General Adult General Chief complaint: Unspecified Stated complaint: Shortness of Breath Related Data Home Medications Medication Instructions Recorded Confirmed hydroxychloroquine 200 mg tablet 200 mg PO BID 04/28/20 07/27/22 pantoprazole 40 mg tablet,delayed 40 mg PO DAILY 04/28/20 07/27/22 release escitalopram oxalate 20 mg tablet 20 mg PO DAILY 09/17/21 07/27/22 leflunomide 20 mg tablet 20 mg PO DAILY 09/17/21 07/27/22 metformin 500 mg tablet,extended 500 mg PO DAILY 09/17/21 07/27/22 release 24 hr topiramate 50 mg tablet 50 mg PO DAILY 09/17/21 07/27/22 enalapril maleate 5 mg tablet 5 mg PO BID 11/16/21 07/27/22 ergocalciferol (vitamin D2) 1,250 1,250 mcg PO WEEKLY 11/16/21 07/27/22 mcg (50,000 unit) capsule cariprazine 3 mg capsule (Vraylar) 3 mg PO HS 06/28/22 07/27/22 pregabalin 75 mg capsule 75 mg PO BID 06/28/22 07/27/22 Allergies Allergy/AdvReac Type Severity Reaction Status Date / Time duloxetine Allergy Severe Anaphylactic Verified 07/27/22 11:36 Shock sertraline Allergy Severe Anaphylactic Verified 07/27/22 11:36 Shock Penicillins Allergy Mild Rash Verified 07/27/22 11:36 Sulfa (Sulfonamide AdvReac Mild Confusion Verified 07/27/22 11:36 Antibiotics) sulfamethoxazole AdvReac Unknown Confusion Verified 07/27/22 11:36 trimethoprim AdvReac Unknown Confusion Verified 07/27/22 11:36 cephalexin [From Keflex] AdvReac Confusion Verified 07/27/22 11:36 Course Course Level of Care: Express Care Visit Vital Signs Vital signs: Vital Signs Temperature 36.4 C 11/05/23 17:44 Pulse Rate 76 11/05/23 17:44 Respiratory Rate 24 H 11/05/23 17:44 Blood Pressure 135/81 11/05/23 17:44 Pulse Oximetry 99 11/05/23 17:44 Oxygen Delivery Room Air 11/05/23 17:44 Temperature 36.4 C 11/05/23 17:44 Pulse Rate 76 11/05/23 17:44 Respiratory Rate 22 H 11/05/23 17:51 Blood Pressure 135/81 11/05/23 17:44 Pulse Oximetry 99 11/05/23 17:44 Oxygen Delivery Room Air 11/05/23 17:44 Medical Decision Making Vital Signs Vital Signs: Vital Signs Temperature 36.4 C 11/05/23 17:44 Pulse Rate 76 11/05/23 17:44 Respiratory Rate 24 H 11/05/23 17:44 Blood Pressure 135/81 11/05/23 17:44 Pulse Oximetry 99 11/05/23 17:44 Oxygen Delivery Room Air 11/05/23 17:44 Temperature 36.4 C 11/05/23 17:44 Pulse Rate 76 11/05/23 17:44 Respiratory Rate 22 H 11/05/23 17:51 Blood Pressure 135/81 11/05/23 17:44 Pulse Oximetry 99 11/05/23 17:44 Oxygen Delivery Room Air 11/05/23 17:44 Discharge Plan Discharge Clinical Impression: Trachea, stenosis Patient Disposition: Home, Self-Care Condition: Stable Additional Instructions: start Po prednisone in am call ENT office or PCP office first thing in am for further evaluation and treatment. if any new or worsening of symptoms go to er immediately Prescriptions: New prednisone 20 mg tablet 40 mg PO DAILY 5 Days Qty: 10 0RF No Action leflunomide 20 mg tablet 20 mg PO DAILY metformin 500 mg tablet extended release 24 hr 500 mg PO DAILY escitalopram oxalate 20 mg tablet 20 mg PO DAILY topiramate 50 mg tablet 50 mg PO DAILY prednisone 20 mg tablet 40 mg PO DAILY 5 Days Qty: 10 0RF pantoprazole 40 mg tablet,delayed release (DR/EC) 40 mg PO DAILY hydroxychloroquine 200 mg tablet 200 mg PO BID ergocalciferol (vitamin D2) 1,250 mcg (50,000 unit) capsule 1,250 mcg PO WEEKLY enalapril maleate 5 mg tablet 5 mg PO BID pregabalin 75 mg capsule 75 mg PO BID Vraylar 3 mg capsule 3 mg PO HS prednisone 20 mg tablet 20 mg PO DAILY Qty: 5 1RF Follow-up/Referrals: Suhail,Elizabeth De Los Santos CHANGE ADVISOR [Primary Care Provider] -
== END 2023-11-05 18:29 | disposition home or self-care (01) ==
PROVIDERS: Emergency Provider Nurse Practitioner Family; PCP Nurse Practitioner Family
DX: J39.8 Other specified diseases of upper respiratory tract (principal); J45.909 Unspecified asthma, uncomplicated; M19.90 Unspecified osteoarthritis, unspecified site; E88.819 Insulin resistance, unspecified
CPT/HCPCS: 96372; 99213; G0463; J2919

== ENCOUNTER 2024-10-28 16:52 | Emergency (ER) | payer MEDICARE, MEDICAID, SELFPAY ==
[2024-10-28 16:59] VITALS: BP 136/83; PULSE 88; RESP 20; TEMP 36.2; O2SAT 97
--- OUTSIDE RECORDS SUMMARY | 2024-10-28 18:07 | XMS_ITS | Clinical Summary ---
Author Organization [facility] Address [address] [facility], [place] [address] Phone Care Team Providers Care Station Installer Name Role Phone Citlali Satya Al DPM Unavailable [phone] Elizabeth Jang APRN, DIE CAST PATTERNMAKER Primary Care Provider Allergies Active Allergy Reactions Criticality Noted Date Comments Duloxetine Hcl Other (see Comments) 04/05/2017 Sent to icu thought she overdosed Cephalexin Other (see Comments) 04/05/2017 disoriented Penicillins Rash 04/05/2017 Elemental Sulfur Other (see Comments) 7 disoriented Sertraline Hcl Other (see Comments) 04/05/2017 Made tongue swell Medications albuterol (PROAIR HFA) 108 (90 Base) MCG/ACT Aerosol Solution inhale 1 - 2 puff by inhalation route every 4 - 6 hours as needed 4 Active budesonide (PULMICORT) 0.25 MG/2ML Suspension inhale 2 milliliter by nebulization route 2 times every day 3 Active desmopressin (DDAVP) 0.2 MG Tablet take 1 tablet (0.2MG) by oral route 2 times every day 3 Active montelukast (SINGULAIR) 10 MG Tablet TAKE 1 TABLET BY MOUTH ONCE DAILY 4 Active Topiramate (TOPAMAX) 50 MG Tablet take 3 tablet by oral route every day 6 Active traMADol (ULTRAM) 50 MG Tablet take 1 tablet by oral route every 6 hours as needed 7 Active Active Problems Problem Noted Date Diagnosed Date Plantar fasciitis, left 06/14/2017 Plantar fasciitis, right 04/05/2017 Equinus contracture of right ankle 04/05/2017 Other enthesopathy of right foot 04/05/2017 Family History * Patient is adopted Relation Name Status Comments Father Other Mother Other Social History Tobacco Use Types Packs/Day Years Used Date Smoking Tobacco: Never Smokeless Tobacco: Never Tobacco Cessation:Counseling Given: Yes Alcohol Use Standard Drinks/Week Comments No 0 (1 standard drink = 0.6 oz pur e alcohol) Sexually Active Control Partners Comments Not Currently Comments No Sex and Gender Information Value Date Recorded Sex Assigned at Not on file Legal Sex Female 8:47 PM CDT Gender Identity Not on file Sexual Orientation Not on file Last Filed Vital Signs Vital Sign Reading Time Taken Comments Blood Pressure 120/80 07/27/2017 1:39 PM [employer]OREKEEPER [employer]EWARD Pulse 83 07/27/2017 1:39 PM [employer]OREKEEPER [employer]EWARD Temperature 36.7 C (98 F) 07/27/2017 1:39 PM STOREKEEPER STEWARD Respiratory Rate 20 07/27/2017 1:39 PM STOREKEEPER STEWARD Oxygen Saturation 98% 07/27/2017 1:39 PM STOREKEEPER STEWARD Inhaled Oxygen Concentration - - Weight 147.9 kg (326 lb) 07/27/2017 1:39 PM STOREKEEPER STEWARD Height 165.1 cm (5' 5 ) 07/27/2017 1:39 PM STOREKEEPER STEWARD Body Mass Index 54.25 07/27/2017 1:39 PM STOREKEEPER STEWARD Plan of Treatment Health Maintenance Due Date Last Done Comments Hepatitis C Virus (HCV) Screening 1982 Mammogram 1982 TdaP Immunization 1982 Hepatitis B Immunization (1 of 3 - 19+ 3-dose series) 2001 Pap Smear 2003 Cervical Cancer Screening (CCS) 2012 HPV/Cotest 2012 Discussion re Starting/Frequ ency of Mammograms 2022 SARS-COV-2 Immunization ( - season) 2024 Influenza Immunization (Seas on Ended) 2025 05/02/2016 Respiratory Syncytial Virus (RSV) Immunization (Adult) (1 - 1-dose 75+ series) 2057 Meningococcal Immunization (ACWY) Aged Out No longer eligible based on patient's age to complete this topic Pneumococcal Immunization Combined Aged Out No longer eligible based on patient's age to complete this topic Rotavirus Immunization Aged Out No lo nger eligible based on patient's age to complete this topic Insurance [place]ICAID [place] Care Teams Station Installer Relationship Specialty Start Date End Date Elizabeth Jang APRN, DIE CAST PATTERNMAKER [address] [place] [address] [address] BRYSON [address] [place] [id number] PCP - General Advanced Practice Nurse 04/05/17 Satya Godwin DPM Consulting Physician Podiatry 04/05/17
--- OUTSIDE RECORDS SUMMARY | 2024-10-28 18:07 | XMS_ITS | Clinical Summary ---
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 This disclosure is being madepursuant to the Care Everywhere program and may not contain all information available regarding this patient. Last updated 18.[facility] [employer] Allergies Active Allergy Reactions Criticality Noted Date Comments Cephalexin Other 11/20/2019 Mental status changes Duloxetine Other 11/20/2019 Keep falling, felt like overdose Advair Diskus Other 11/20/2019 Flu like symptoms Tiagabine Seizures High 11/20/2019 Penicillins Rash Medium 11/20/2019 Quetiapine Other 11/20/2019 Suicidal Salmeterol Other 11/20/2019 Flu like symptoms Sertraline Anaphylaxis High 11/20/2019 Sulfa Drugs Other 11/20/2019 Metallic taste, spacey Sulfamethoxazole W-Trimethoprim Rash Medium 11/20/2019 Medications * Be aware that medications may not be up to date on this document. Alwaysverify current medications with the patient. Medication Sig Dispensed Refills Start Date End Date Status albuterol HFA (PROVENTIL;VENTOLIN ;PROAIR) 108 (90 Base) MCG/ACT inhalerIndications: Asthma Inhale 2 puffs by mouth every 6 hours as needed for Shortness of Breath Active LORazepam (ATIVAN) 0.5 MG tabletIndications:A nxiety Take 0.5 mg by mouth 2 times daily as needed for Anxiety Active montelukast (SINGULAIR) 10 MG tabletIndications:A sthma Take 10 mg by mouth once daily Active pantoprazole EC (PROTONIX) 40 MG tabletIndications:G astroesophageal Reflux Disease Take 40 mg by mouth once daily Active topiramate (TOPAMAX) 200 MG tabletIndications:m ood disorder Take 1 tablet by mouth once daily Reasons: mood disorder 30 tablet 11/26/2019 Active lurasidone (LATUDA) 40 MG tabletIndications:D epressive Phase Bipolar Mood Disorder Take 1 tablet by mouth once daily after dinner Reasons: Depressive Phase of Manic-Depression 30 tablet 11/26/2019 Active Active Problems Problem Noted Date Diagnosed Date Bipolar 1 disorder, depressed, severe 11/21/2019 Family History Medical History Relation Name Comments Diabetes - Type 2 Maternal Grandfather Relation Name Status Comments Maternal Grandfather Social History Tobacco Use Types Packs/Day Years Used Date Smoking Tobacco: Never Smokeless Tobacco: Never Tobacco Cessation:Counseling Given: No Alcohol Use Standard Drinks/Week Comments Not Currently 0 (1 standard drink = 0.6 oz pur e alcohol) Sex and Gender Information Value Date Recorded Sex Assigned at Not on file Gender Identity Not on file Sexual Orientation Not on file Last Filed Vital Signs Vital Sign Reading Time Taken Comments Blood Pressure 123/83 11/26/2019 12:32 PM CDT Pulse 78 11/26/2019 12:32 PM CDT Temperature 36.6 C (97.8 F) 11/26/2019 12:32 PM CDT Respiratory Rate 20 11/26/2019 12:3 2 PM CDT Oxygen Saturation 99% 11/26/2019 12: 32 PM CDT Inhaled Oxygen Concentration - - Weight 138.7 kg (305 lb 11.2 oz) 11/21/2019 5:44 AM CDT Height 167.6 cm (5' 6 ) 11/21/2019 5:15 AM CDT Body Mass Index 49.34 11/21/2019 5:15 AM CDT Plan of Treatment Health Maintenance Due Date Last Done Comments MAMMOGRAM 1982 PAP SMEAR 1982 HIV SCREENING 1997 HEPATITIS C SCREENING 04/13/2000 DTAP/TDAP/TD VACCINES (1 - Tdap) 2001 HEPATITIS B VACCINE (1 of 3 - 19+ 3-dose series) 2001 COVID-19 VACCINE ( - 2023- season) 2024 MEDICARE AWV CALENDAR YEAR 2024 LIPID TESTING 11/19/2024 11/20/2019 INFLUENZA VACCINE (Season Ended) 2025 06/22/2021, 05/07/2019, 06/05/2017, Additional history exists ZOSTER VACCINE (1 of 2) 2032 HIB VACCINE Aged Out No longer eligi ble based on patient's age to complete this topic HPV VACCINE Aged Out No longer eligi ble based on patient's age to complete this topic MENINGOCOCCAL (Group B) VACCINE SHARED DECISION-MAKING Aged Out No longer eligible based on patient's age to complete this topic MENINGOCOCCAL GROUPS A/C/Y/W VACCINE Aged Out No longer eligible based on patient's age to complete this topic PNEUMOCOCCAL VACCINE Aged Out No long er eligible based on patient's age to complete this topic Procedures Procedure Name Priority Date/Time Associated Diagnosis Comments LIPID PROFILE Add on 11/20/2019 7:18 PM CDT from Last 3 Months or Most Recently Relevant to Health Maintenance Results * LIPID PROFILE (11/20/2019 7:18 PM CDT) [facility] Cholesterol 193 <200 mg/dL 11/21/2019 5:49 AM CDT [facility] Triglycerides 91 <150 mg/dL 11/21/2019 5:49 AM CDT [facility] HDL Cholesterol 58 >40 mg/dL 0 5:49 AM CDT [facility] LDL Calculated 117 <130 mg/dL 11/21/2019 5:49 AM CDT [facility] VLDL Calculated 18 <=30 mg/dL 0 5:49 AM CDT [facility] Chol HDL Ratio 3.3 <4.5 11/21/2019 5:49 AM CDT [facility] LDL/HDL Ratio 2.0 <5.0 11/21/2019 5:49 AM CDT [facility] Blood BLOOD SPECIMEN / Unknown Venipuncture / Unknown 11/20/2019 7:18 PM CDT 11/20/2019 7:27 PM CDT Vic Yo MD LAB - CHEMISTRY [facility] Organization Address City/State/ZIP Co de Phone Number [facility] [address] [place] [address] from Last 3 Months or Most Recently Relevant to Health Maintenance Advance Directives * Full Code (Latest Code Status on File) Date Activated Date Inactivated Comments 11/21/2019 5:21 AM 11/26/2019 7:41 PM
--- OUTSIDE RECORDS SUMMARY | 2024-10-28 18:08 | XMS_ITS | Encounter Summary ---
Author Organization [facility] Healthcare Address [address] [place] [address] Care Team Providers Care Refrigeration Service Technician Name Role Phone Jennifer Evans PT Unavailable Unavailable Aleshia Haddad NET DEVELOPER ARCHITECT Unavailable Unavailable Roosevelt Hansen PA Unavailable [phone] Fabi Ma NP Unavailable [phone] Dione Fernandez ACCOUNTS PAYABLE ASSOCIATE Unavailable [phone] Janee Iverson PT Unavailable Unavaila Raeann Dickey ACCOUNTS PAYABLE ASSOCIATE Unavailable [phone] Elizabeth Jang NP Primary Care Provider [phone] Encounter Details Date Type Department Care Team (Late st Contact Info) Description 10/08/2024 Results Follow-Up [facility] Medical [facility] Primary Care at [address] [address] Elizabeth Jang NP [address] [place] [address] [address] [place] [address] Social History Tobacco Use Types Packs/Day Years Used Date Smoking Tobacco: Former Cigarettes Passive Smoke Exposure: Past Smokeless Tobacco: Never Comments:Smokes marijuana Alcohol Use Standard Drinks/Week Comments Not Currently 0 (1 standard drink = 0.6 oz pur e alcohol) Social Connection and Isolat ion Panel [NHANES] Answer Date Recorded In a typical week, how many times do you talk on the phone with family, friends, or neighbors? Twice a week 11/01/2019 How often do you get togethe r with friends or relatives? Never 11/01/2019 How often do you attend chur ch or voodoo services? 1 to 4 times per year 11/01/2019 Do you belong to any clubs o r organizations such as gnosticism groups, unions, fraternal or athletic groups, or school groups? Yes 11/01/2019 How often do you attend meet ings of the clubs or organizations you belong to? More than 4 times per year 11/01/2019 Are you , , di vorced, , never , or living with a partner? Never 11/01/2019 AUDIT-C Answer Date Recorded Q1: How often do you have a drink containing alcohol? Never 07/10/2024 Q2: How many drinks containi ng alcohol do you have on a typical day when you are drinking? Patient does not drink Q3: How often do you have si x or more drinks on one occasion? Never 07/10/2024 Overall Financial Resource Strain (CARDIA) Answe r Date Recorded How hard is it for you to pa y for the very basics like food, housing, medical care, and heating? Not hard at all 11/01/2019 PHQ-2 Answer Date Recorded PHQ-2 Total Score (If total score is 3 or more points, staff should administer the PHQ-9) 0 01/23/2024 Hunger Vital Sign Answer Date Recorded Within the past 12 months, y ou worried that your food would run out before you got the money to buy more. Never true 11/01/19 20 Within the past 12 months, t he food you bought just didn't last and you didn't have money to get more. Never true 11/01/2019 PRAPARE - Transportation Answer Date Re corded In the past 12 months, has l ack of transportation kept you from medical appointments or from getting medications? No 10/22 In the past 12 months, has l ack of transportation kept you from meetings, work, or from getting things needed for daily living? No 11/01/2019 Personal Safety Answer Date Recorded Have you ever been in or are you currently in a harmful physical or emotional relationship or is someone making you feel afraid or unsafe? Denies 09/13/2023 Education Answer Date Recorded What is the highest level of school you have completed or the highest degree you have received? 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 Gender Identity Not on file Sexual Orientation Not on file documented as of this encounter Plan of Treatment Not on file documented as of this encounter Visit Diagnoses Not on filedocumented in this encounter Care Teams Refrigeration Service Technician Relationship Specialty Start Date End Date Elizabeth Jang ACCOUNTS PAYABLE ASSOCIATE [address] [facility] [address] PCP - General Family Medicine 09/07/23 Jennifer Evans, PT Physical Therapist Physical Therapy 06/26/17 Aleshia Haddad, NET DEVELOPER ARCHITECT Physical Therapist Physical Therapy 07/12/17 Roosevelt Hansen PA [address] [place] [address] [address] Physician Elementary Assistant Principal Orthopedic Surgery 10/04/17 Fabi Ma NP [address] [address] Nurse Practitioner Psychiatry 11/09/20 Dione Fernandez NP [address] [facility] R[facility], [address] [address] Nurse Practitioner Rheumatology 11/09/20 Janee Iverson, PT Physical Therapist Physical Therapy 01/05/23 Raeann Kurtz, TARYN [address] [facility] [address] Family Medicine 09/07/23 documented as of this encounter
--- OUTSIDE RECORDS SUMMARY | 2024-10-28 18:08 | XMS_ITS | Encounter Summary ---
Author Organization [facility] Address [address] [place] [address] Phone Care Team Providers Care Switchboard Operator Assistant Name Role Phone Jennifer Evans PT Unavailable Unavailable Aleshia Haddad PTA Unavailable Unavailable Roosevelt Hansen Unavailable [phone] Fabi Ma NP Unavailable Dione Fernandez CRIME LAB ANALYST Unavailable [phone] Janee Iverson PT Unavailable Unavaila Raeann Dickey CRIME LAB ANALYST Unavailable [phone] Elizabeth Jang NP Primary Care Provider [phone] Encounter Details Date Type Department Care Team (Late st Contact Info) Description 06/10/2024 Orders Only [facility] [address] [facility] [address], [address] [place] [address] Lauren Blakely CRIME LAB ANALYST [address] [place] [address] Social History Tobacco Use Types Packs/Day Years Used Date Smoking Tobacco: Never Passive Smoke Exposure: Past Smokeless Tobacco: Never [...] often do you attend chur ch or latter-day services? 1 to 4 times per year 11/01/2019 Do you belong to any clubs o r organizations such as oriental orthodox groups, unions, fraternal or athletic groups, or school groups? Yes 11/01/2019 How often do you attend meet ings of the clubs or organizations you belong to? More than 4 times per year 11/01/2019 Are you , , di vorced, , never , or living with a partner? Never 11/01/2019 AUDIT-C Answer Date Recorded Q1: How often do you have a drink containing alc ohol? 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 Gender Identity Not on file Sexual Orientation Not on file documented as of this encounter Plan of Treatment Not on file documented as of this encounter Visit Diagnoses Not on filedocumented in this encounter Discontinued Medications Medication Sig Discontinue Reason Start Date End Da te topiramate (TOPAMAX) 50 mg tabletIndications:Migrai ne without aura and without status migrainosus, not intractable Take 1 tablet (50 mg total) by mouth nightly Other 01/23/2024 06/10/2024 documented as of this encounter Care Teams Switchboard Operator Assistant Relationship Specialty Start Date End Date Elizabeth Jang NP [address] [facility] [place] [address] PCP - General Family Medicine 09/07/23 Jennifer Evans, PT Physical Therapist Physical Therapy 06/26/17 Aleshia Haddad, BREAKER TABLE WORKER Physical Therapist Physical Therapy 07/12/17 Roosevelt Hansen PA [address] [place] [address] [address] Physician Provider Enrollment Specialist Orthopedic Surgery 10/04/17 Fabi Ma NP [address] [address] Nurse Practitioner Psychiatry 11/09/20 Dione Fernandez NP [address] [facility], [address] [address] Nurse Practitioner Rheumatology 11/09/20 Janee Iverson, PT Physical Therapist Physical Therapy 01/05/23 Raeann Kurtz, TARYN [address] [place] [address] [place] [address] Family Medicine 09/07/23 documented as of this encounter
--- OUTSIDE RECORDS SUMMARY | 2024-10-28 18:08 | XMS_ITS | Referral Summary ---
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 Name Role Phone Jennifer Evans PT Unavailable Unavailable Aleshia Haddad PHARMACY BILLING ADJUDICATOR Unavailable Unavailable Roosevelt Hansen PA Unavailable [phone] Fabi Ma NP Unavailable [phone] Dione Fernandez PATTERN CUTTER Unavailable [phone] Janee Iverson PT Unavailable Unavaila Raeann Dickey PATTERN CUTTER Unavailable [phone] Elizabeth Jang NP Primary Care Provider [phone] Encounters Date Type Department Care Team Description 10/28/2024 Results Follow-Up [facility] Primary Care at [address] [phone] Elizabeth Jang NP 10/24/2024 8:30 AM CDT Office Visit [facility] [employer] [facility] at [address] [place] [phone] Casey Vasquez NP Tachycardia (Primary Dx); Palpitations; Intermittent palpitations; BMI 50.0-59.9, adult (HCC); Obstructive sleep apnea 10/22/2024 1:30 PM CDT Clinical Support [facility] Diabetes and Nutrition Services [facility] Medical Office Building 4, [address] [place] [address] 10/08/2024 Results Follow-Up [facility] Primary Care at [address] [phone] Elizabeth Jang NP 10/08/2024 12:26 PM CDT - 10/08/2024 11:59 PM CDT Hospital Encounter [facility] Cardiology [address] [place] [address] Tachycardia; Palpitations; Intermittent palpitations Discharge Disposition: Discharge to home or self care 10/08/2024 12:25 PM CDT - 10/08/2024 11:59 PM CDT Hospital Encounter [facility] Cardiology 1 [place] [address] Tachycardia; Palpitations; Intermittent palpitations Discharge Disposition: Discharge to home or self care 09/24/2024 1:00 PM REAM CUTTER Clinical Support [facility] Diabetes and Nutrition Services [address] [place] [address] Office Building [address], [address] [place] [address] Encounter for medication monitoring (Primary Dx) 09/20/2024 Orders Only [facility] Diabetes and Nutrition Services [address] [place] [address] Office Building [address], [address] [place] [address] Whitney Bear MD Insulin resistance 09/16/2024 Telephone [facility] Diabetes and Nutrition Services [address] [place] [address] Office Building [address], [address] [place] [address] Anjelica Coats CPhT Prior Auth (zepbound) 09/11/2024 1:00 PM REAM CUTTER Office Visit [facility] Primary Care at [address] [phone] Elizabeth Jang NP Tachycardia (Primary Dx); Palpitations; Intermittent palpitations 09/11/2024 Nurse Triage [facility] Primary Care at [address] [phone] Elizabeth Jang NP 09/05/2024 11:00 AM REAM CUTTER Office Visit [facility] Rheumatology [address] [facility] 2nd Floor [address] [place] [address] Dione Fernandez NP Rheumatoid arthritis involving multiple sites, unspecified whether rheumatoid factor present (HCC) (Primary Dx) 09/05/2024 10:30 AM REAM CUTTER Infusion [facility] Infusion Therapy [address] [facility] 2nd Floor [address] [place] [address] COVID-19 virus infection (Primary Dx); Rheumatoid arthritis involving multiple sites, unspecified whether rheumatoid factor present (HCC) 09/03/2024 Orders Only [facility] Diabetes and Nutrition Services [address] [facility] Medical Office Building [address], [address] [place] [address] Whitney Bear MD Obstructive sleep apnea (Primary Dx) 08/29/2024 7:15 AM REAM CUTTER - 08/29/2024 11:59 PM REAM CUTTER Hospital Encounter [facility] Cardiology [address] [place] [address] Morbid obesity (HCC); BMI 50.0-59.9, adult (HCC); Arthritis; Gastroesophageal reflux disease, unspecified whether esophagitis present; Essential hypertension; Insulin resistance; Obstructive sleep apnea; Stenosis of trachea Discharge Disposition: Discharge to home or self care 08/29/2024 7:10 AM REAM CUTTER Lab [address] [phone] Morbid obesity (HCC); BMI 50.0-59.9, adult (HCC); Arthritis; Gastroesophageal reflux disease, unspecified whether esophagitis present; Essential hypertension; Insulin resistance; Obstructive sleep apnea; Stenosis of trachea; Abnormal finding of blood chemistry, unspecified; History of insulin resistance 08/29/2024 7:05 AM REAM CUTTER [address] [address] High risk medication use; Rheumatoid arthritis involving multiple sites, unspecified whether rheumatoid factor present (HCC) 08/29/2024 7:02 AM REAM CUTTER - 08/29/2024 11:59 PM REAM CUTTER Hospital Encounter [address] [address] Preoperative clearance Discharge Disposition: Discharge to home or self care 08/29/2024 7:07 AM REAM CUTTER - 08/29/2024 11:59 PM REAM CUTTER Hospital Encounter [address] [address] Preoperative clearance Discharge Disposition: Discharge to home or self care 08/29/2024 7:07 AM REAM CUTTER - 08/29/2024 11:59 PM REAM CUTTER Hospital Encounter [facility] Imaging Center 1 [place] [address] Multiple thyroid nodules Discharge Disposition: Discharge to home or self care 08/27/2024 11:00 AM REAM CUTTER Office Visit [facility] Diabetes and Nutrition Services [address] [facility] Medical Office Building [address], [address] [place] [address] Whitney Bear MD Obstructive sleep apnea (Primary Dx); Weight loss counseling, encounter for; Insulin resistance; Class 3 severe obesity due to excess calories with serious comorbidity and body mass index (BMI) of 50.0 to 59.9 in adult (HCC) 08/26/2024 Telephone [facility] Diabetes and Nutrition Services [address] [place] [address] Medical Office Building 4, [address] [place] [address] Carmen López, CONCRETE TILE MACHINE OPERATOR Appointment 08/13/2024 12:30 PM REAM CUTTER Clinical Support [facility] Outpatient Nutrition Counseling [address] [facility] [address] [place] [address] Morbid obesity (HCC); BMI 50.0-59.9, adult (HCC); Arthritis; Gastroesophageal reflux disease, unspecified whether esophagitis present; Essential hypertension; Insulin resistance; Obstructive sleep apnea; Stenosis of trachea 08/01/2024 8:00 AM REAM CUTTER Office Visit [facility] Orthopedics and Sports Medicine [address] [facility] [address] [place] [phone] Blaire Jones NP Primary osteoarthritis of right knee (Primary Dx); BMI 50.0-59.9, adult (HCC) 07/31/2024 Telephone [facility] Primary Care at [address] [phone] Elizabeth Jang NP Medication preference per insurance 07/31/2024 Plan of Care Documentation [facility] Physical Therapy [address] [place] [phone] 07/31/2024 11:00 AM REAM CUTTER Therapy [facility] Physical Therapy [address] [place] [phone] Annemarie Gonzales DPT Morbid obesity due to excess calories (HCC) (Primary Dx); BMI 50.0-59.9, adult (HCC); Arthritis; Gastroesophageal reflux disease, unspecified whether esophagitis present; Essential hypertension; Insulin resistance; Obstructive sleep apnea; Stenosis of trachea; Morbid obesity (HCC) 07/30/2024 Telephone [facility] Diabetes and Nutrition Services [address] [place] [address] Medical Office Building [address], [address] [place] [address] Anjelica Coats CPhT Appointment/Schedule s (Alerted patient that her appt on 07/31 is canceled and she already has an appt scheduled in Aug.) 07/30/2024 12:30 PM REAM CUTTER Office Visit [facility] Primary Care at [address] [phone] Elizabeth Jang NP Essential hypertension (Primary Dx); Multiple thyroid nodules; Preoperative clearance; Visit for screening mammogram; Mild intermittent asthma without complication; Class 3 severe obesity due to excess calories with serious comorbidity and body mass index (BMI) of 50.0 to 59.9 in adult (HCC); Rheumatoid arthritis involving multiple sites, unspecified whether rheumatoid factor present (HCC); Severe depressed bipolar I disorder without psychotic features (HCC) from Last 3 Months Allergies Active Allergy Reactions Criticality Noted Date Comments Casirivimab-Imdevimab Shortness of breath,Chest tightness,Dizziness ,Flushing (skin),Nausea & Vomiting High 02/09/2021 Celecoxib Other (See comments) Low 01/26/2021 HIGH BP Cephalexin Mental status changes Low Naltrexone Other (See comments) High 07/03/2024 Caused SI Duloxetine Other (See comments) Reaction: keep falling, felt like overdos, , , Fluticasone Other (See comments) Reaction: flu like symptoms, , , Fluticasone Propion-Salmeterol Other (See comments) Low 11/20/2019 Flu like symptoms Tiagabine Seizures High 06/22/2018 Paroxetine Mental status changes Low 01/27/2020 Penicillins Rash Reaction: Rash, , , , , Reaction: Rash, Quetiapine Other (See comments) Reaction: suicidal, , , Sertraline Swollen tongue Reaction: tongue swelling, , Reaction: TONGUE SWELLING, Sulfa (Sulfonamide Antibiotics) Other (See comments) Reaction: metallic taste, spacey, , , Reaction: Unknown, Sulfamethoxazole Sulfamethoxazole-Trimethop rim Rash Medium 11/20/2019 Sulfanilamide Sulfur Iodide Other (See comments) Low 04/05/2017 disoriented Trimethoprim Medications propranoloL (INDERAL) 10 mg tablet Take 1 tablet (10 mg total) by mouth 2 (two) times a day 10/13/19 23 Active Vraylar 6 mg capsule daily 07/03/20 23 Active buPROPion XL (WELLBUTRIN XL) 300 mg 24 hr tablet Take 1 tablet (300 mg total) by mouth every morning 08/24/19 24 Active ramelteon (ROZEREM) 8 mg tablet TAKE 1 TABLET BY MOUTH DAILY AT BEDTIME NEEDED 10/13/19 24 Active SUMAtriptan (IMITREX) 100 mg tablet TAKE 1 TABLET(100 MG) BY MOUTH 1 TIME FOR UP TO 1 DOSE NEEDED FOR MIGRAINE 9 tablet 1 01/01/[address] (PROTONIX) 40 mg EC tablet Take 1 tablet (40 mg total) by mouth daily 90 tablet 3 01/23/20 24 Active montelukast (SINGULAIR) 10 mg tablet Take 1 tablet (10 mg total) by mouth daily 90 tablet 3 01/23/20 24 Active enalapril (VASOTEC) 5 mg tabletIndicatio ns:Essential hypertension TAKE 1 TABLET BY MOUTH TWICE DAILY 180 tablet 3 02/02/20 24 Active hydroxychloroqu ine (PLAQUENIL) 200 mg tablet Take 1 tablet (200 mg total) by mouth 2 (two) times a day 180 tablet 3 03/14/20 24 Active topiramate (TOPAMAX) 25 mg tablet Take 25 mg tablet in the morning. (In addition to the evening dose of topiramate) 30 tablet 2 05/14/20 24 Active Additional Information Patient not taking.Reported on 10/24/2024 modafiniL (PROVIGIL) 200 mg tablet TAKE 1 TABLET(200 MG) BY MOUTH TWICE DAILY. NO LATER THAN 2: 00 PM 60 tablet 2 07/01/20 24 Active haloperidoL (HALDOL) 1 mg tablet 2 (two) times a day 05/29/20 24 Active prazosin (MINIPRESS) 1 mg capsule TAKE 1 CAPSULE BY MOUTH DAILY AT BEDTIME 06/17/20 24 Active multivitamin tabletIndicatio ns:Vitamin Deficiency Prevention Take 1 tablet by mouth Active pregabalin (LYRICA) 100 mg capsule Take 1 capsule (100 mg total) by mouth 2 (two) times a day 60 capsule 3 07/30/19 25 Active albuterol HFA (PROVENTIL HFA,VENTOLIN HFA,PROAIR HFA) 90 mcg/actuation inhalerIndicati ons:Mild intermittent asthma without complication Inhale 2 puffs every 4 (four) hours as needed for wheezing 54 g 3 07/30/19 25 Active ipratropium-alb uteroL (DUO-NEB) 0.5-2.5 mg/3 mL nebulizer solution Take 3 mL by nebulization 4 (four) times a day as needed for wheezing or shortness of breath 120 mL 11 08/01/19 25 Active topiramate (TOPAMAX) 25 mg tablet TAKE 3 TABLETS(75 MG) BY MOUTH EVERY NIGHT 270 tablet 08/13/19 25 Active tirzepatide, weight loss, (Zepbound) 5 mg/0.5 mL pen injectorIndicat ions:Severe JACINTO -- supine, REM AHI 49.1 Inject 0.5 mL (5 mg total) under the skin every 7 days Start after taking 2.5 mg weekly for 4 weeks. 2 mL 2 09/03/19 25 Active Additional Information Patient not taking.Reported on 10/24/2024 methylPREDNISol one (MEDROL DOSEPACK) 4 mg Dosepack Take as directed on package 1 packet 1 09/05/19 25 Active Additional Information Patient not taking.Reported on 10/24/2024 leflunomide (ARAVA) 20 mg tabletIndicatio ns:Rheumatoid Arthritis Take 1 tablet (20 mg total) by mouth daily 90 tablet 09/05/19 25 Active naproxen (NAPROSYN) 500 mg tablet TAKE 1 TABLET(500 MG) BY MOUTH TWICE DAILY WITH MEALS 60 tablet 2 09/18/19 25 Active metFORMIN XR (GLUCOPHAGE XR) 500 mg 24 hr tabletIndicatio ns:Insulin resistance Take 2 tablets (1,000 mg total) by mouth daily with breakfast 60 tablet 2 09/20/19 25 Active dicyclomine (BENTYL) 10 mg capsule TAKE 2 CAPSULES(20 MG) BY MOUTH TWICE DAILY 120 capsule 11 10/25/19 25 Active dicyclomine (BENTYL) 10 mg capsule Take 2 capsules (20 mg total) by mouth 2 (two) times a day 120 capsule 11 01/23/20 24 2024 Discontinued Active Problems Problem Noted Date Diagnosed Date Palpitations 09/11/2024 Assessment & Plan (09/11/2024 1:16 PM REAM CUTTER): CXR 08/29/24: No acute cardiopulmonary abnormality. EKG 09/11/24 Sinus Rhythm -Poor R-wave progression -nonspecific -consider old anterior infarct. BORDERLINE EKG IMPRESSION 08/29/24: SINUS RHYTHM LOW QRS VOLTAGE IN PRECORDIAL LEADS [QRS DEFLECTION < 1.0 mV IN CHEST LEADS] BORDERLINE ECG NO CHANGE FROM PREVIOUS TRACING NOTED Ordered echo and holter monitor Multiple thyroid nodules 07/30/2024 Assessment & Plan (07/30/2024 1:28 PM REAM CUTTER): Ordered yearly ultrasound of her thyroid for recheck on thyroid nodules according to Radiology recommendation Preoperative clearance 07/30/2024 Assessment & Plan (07/30/2024 1:29 PM REAM CUTTER): Needs preop workup for bariatric surgery as ordered Weight loss counseling, encounter for 02/08/2024 Insulin resistance 07/28/2023 Binge eating disorder 07/26/2023 Mammogram declined 03/09/2023 Assessment & Plan (03/09/2023 10:59 AM CDT): Discussed screening guidelines and risks/benefits and how they do screening. Pt declines at this time, but will think about it. Insomnia secondary to chronic pain 03/09/2022 Assessment & Plan (05/19/2022 10:51 AM CDT): Gets about 3-6 hours of sleep a night. Will take [place] PRN but will have a hard time waking up when she takes. Chronic pain of multiple joints 03/09/2022 Fibromyalgia 03/09/2022 COVID-19 virus infection 02/07/2021 Essential hypertension 12/06/2020 Assessment & Plan (07/30/2024 1:26 PM REAM CUTTER): Stable/ Improved. Blood pressure is adequately controlled on enalapril . We will not make any medication changes today. Will have her follow-up in 6 months for continued monitoring and management Assessment & Plan (01/23/2024 8:25 AM CDT): Stable/ Improved. Blood pressure is adequately controlled on enalapril (Vasotec) . We will not make any medication changes today. Will have her follow-up in 6 months for continued monitoring and management Assessment & Plan (07/25/2023 2:34 PM REAM CUTTER): Stable/ Improved. Blood pressure is adequately controlled on current medication. We will not make any medication changes today. Will have her follow-up in 6 months for continued monitoring and management Assessment & Plan (03/12/2023 8:03 PM CDT): Stable/ Improved. Blood pressure is adequately controlled on current medication. We will not make any medication changes today. Will have her follow-up in 6 months for continued monitoring and management Continue enalapril. She is frequent labs with Rheumatology. These were reviewed and were normal. Assessment & Plan (07/05/2022 2:45 PM REAM CUTTER): BP Readings from Last 3 Encounters: 07/05/22 113/79 05/19/22 110/76 04/14/22 137/84 Vitals BP 113/79 (BP Location: Left arm, Patient Position: Sitting) Pulse 94 Resp 22 Ht 165.1 cm (5' 5 ) Wt (!) 163.3 kg (360 lb) BMI 59.91 kg/m Lab Results Component Value Date POTASSIUM 3.9 03/31/2022 At goal continue current regimen Assessment & Plan (05/19/2022 10:54 AM CDT): Improved. BP stable in office. Continue current medication. Assessment & Plan (08/22/2021 8:13 PM REAM CUTTER): Blood pressure was elevated when she was in specialty office on the . Pt states she forgets to take her blood pressure medication in the morning. She remembers to take medication in the evening, but not in the morning and blood pressure is thus high. Discussed that patient needs to get blood pressure under control by using medication daily boxes and/ or reminders. Assessment & Plan (05/18/2021 8:48 PM CDT): A little higher today. Will have her f/u in 3 months for recheck. Will not change medications today Assessment & Plan (01/05/2021 2:22 PM CDT): Will keep her off of valsartan hydrochlorothiazide. Will try enalapril 5 mg once daily. Cautioned about side effects of Osman inhibitors could be cough. She has follow-up with Rheumatology in office and she also checks blood pressures at home. I asked her to send me some blood pressure readings through my chart for evaluation and then we have a follow-up with her scheduled already in April Assessment & Plan (12/06/2020 9:26 PM CDT): Hypertension is newly identified. Medication changes per orders. start valsartan/hctz Blood pressure will be reassessed in 4 weeks. Migraine without aura and wi thout status migrainosus, not intractable 11/09/2020 Assessment & Plan (01/23/2024 9:19 AM CDT): Stable. Continue topamax Assessment & Plan (07/25/2023 2:50 PM REAM CUTTER): Improved. Continue Topamax at bedtime. Assessment & Plan (03/12/2023 8:04 PM CDT): Improved. Continue Topamax 50 mg at bedtime. She is Imitrex p.r.n. Assessment & Plan (08/22/2021 8:30 PM REAM CUTTER): Will restart topamax at HS for migraine prevention. Assessment & Plan (11/09/2020 10:18 AM CDT): Stable. Controlled with Imitrex p.r.n. Right hip pain 09/28/2020 Assessment & Plan (11/07/2022 2:11 PM CDT): She would a normal x-ray of her hip last June. I think this is secondary to her knee pain and likely the way that she was walking. She can not take NSAIDs. Will increase her Lyrica to 100 mg twice a day. If it is well tolerated we could increase to 150 mg twice daily. I asked her about taking tramadol and patient states it has not worked for her in the past. We are referring her back to physical therapy. I would also like to try pain management again. She states she reached out to the bariatric program through referral from her high school librarian at [facility] and they told her that they are not accepting new patients at the moment. I offered her to the bariatric program here at [facility] through general surgery. Assessment & Plan (09/28/2020 9:31 PM REAM CUTTER): Will get x-ray right tib/fib. Osman wrap applied. States she does have crutches. Recommended to elevate leg, ice it tonight. F/u pending x-ray results Medicare annual wellness visit, subsequent 05/07 Assessment & Plan (01/23/2024 8:26 AM CDT): -Recommended: Healthy diet. Avoiding junk food/fast food. -30 minutes of exercise most days of the week. Increase to 45 minutes for weight loss. Health Maintenance reviewed - mammogram ordered, patient to schedule appointment. -Influenza vaccine every year Recommend: -There are no preventive care reminders to display for this patient. -F/u in 1 year for Annual PE or sooner if needed Assessment & Plan (05/19/2022 10:27 AM CDT): Patient Counseling: --Nutrition: Stressed importance of moderation in sodium/caffeine intake, saturated fat and cholesterol, caloric balance, sufficient intake of fresh fruits, vegetables, --Exercise: Stressed the importance of regular exercise. --Injury prevention: Discussed safety belts, throw rugs in house, smoke detectors, --Dental health: Discussed importance of regular tooth brushing, flossing, and dental visits. --Immunizations reviewed and offered- Flu and pneumonia given today . Assessment & Plan (05/18/2021 8:55 PM CDT): Patient Counseling: --Nutrition: Stressed importance of moderation in sodium/caffeine intake, saturated fat and cholesterol, caloric balance, sufficient intake of fresh fruits, vegetables, --Exercise: Stressed the importance of regular exercise. --Injury prevention: Discussed safety belts, throw rugs in house, smoke detectors, --Dental health: Discussed importance of regular tooth brushing, flossing, and dental visits. --Immunizations reviewed and offered- utd . Assessment & Plan (05/12/2020 10:04 AM CDT): -Recommended: Healthy diet. Avoiding junk food/fast food. -30 minutes of exercise most days of the week. Increase to 45 minutes for weight loss. Immunizations: Recommended influenza updated today, Tdap recommended through pharmacy benefits lose weight, increase physical activity, limit alcohol consumption, continue present plan, call if any problems Follow-up in 6 months. Assessment & Plan (05/07/2019 10:25 AM CDT): -Recommended: Healthy diet. Avoiding junk food/fast food. -30 minutes of exercise most days of the week. Increase to 45 minutes for weight loss. -Influenza vaccine every year -F/u in 1 year for Annual PE or sooner if needed Class 3 severe obesity due t o excess calories with serious comorbidity and body mass index (BMI) of 50.0 to 59.9 in adult 06/09/2018 Assessment & Plan (07/30/2024 1:26 PM REAM CUTTER): Pursuing bariatric surgery workup. Needs ultrasound of the abdomen and a chest x-ray ordered. She is also on Trulicity from weight management. She is down 6 lb again from last month. Assessment & Plan (07/25/2023 2:49 PM REAM CUTTER): She is going to see bariatric surgery for the 1st time tomorrow.BMI Follow-up includes: exercise counseling. Assessment & Plan (12/15/2022 8:49 AM CDT): The patient is on the right track with limiting her calorie intake to 1500 and cutting out soda. We have discussed this month that I want her to try on avoiding eating late at night which she admits to be a problem. Given her reflux disease I favor a bypass may be a better option. She was set to see someone down town for this but she said they were accepting new people. I am going to make another referral for her. Assessment & Plan (11/07/2022 2:13 PM CDT): Referring her to the bariatric program through [facility] general surgeon here. Unfortunately her weight is likely a barrier and a contributor to her pain. Patient is frustrated as she believes that she can not tolerate any exercise due to her pain and yet she can not get any help because of her weight that she has difficulty getting off because she can not exercise. Assessment & Plan (07/05/2022 2:45 PM REAM CUTTER): Wt Readings from Last 3 Encounters: 07/05/22 (!) 163.3 kg (360 lb) 05/19/22 (!) 160.6 kg (354 lb) 04/08/22 (!) 157.4 kg (347 lb) BMI Readings from Last 3 Encounters: 07/05/22 59.91 kg/m 05/19/22 58.91 kg/m 04/08/22 57.74 kg/m Not at goal of bmi <30 Continue diet and exercise BMI Follow-up includes: nutrition counseling and exercise counseling. Assessment & Plan (05/19/2022 10:26 AM CDT): BMI Follow-up includes: exercise counseling. Assessment & Plan (08/22/2021 8:44 PM REAM CUTTER): BMI Follow-up includes: Discussed that patient will need to have blood pressure under control and we can discuss phentermine use. Pt was interested in ozempic or wegovey, but I told her that medicare/ medicaid does not pay for it. Assessment & Plan (05/18/2021 8:49 PM CDT): BMI Follow-up includes: exercise counseling. Assessment & Plan (11/09/2020 10:16 AM CDT): BMI Follow-up includes: exercise counseling. Assessment & Plan (09/28/2020 9:29 PM REAM CUTTER): BMI Follow-up includes: education provided. Assessment & Plan (05/12/2020 10:03 AM CDT): BMI Follow-up includes: exercise counseling. Assessment & Plan (11/06/2018 12:42 PM CDT): BMI Follow-up includes: nutrition counseling. Obstructive sleep apnea 06/09/2018 Overview (09/03/2024): Images from the original note were not included. Sleep study Aug 2021 -- severe JACINTO in supine position. Assessment & Plan (08/29/2024 7:14 PM REAM CUTTER): May be a candidate for Zepbound. Defer at this time as she is losing weight with Trulicity. Assessment & Plan (06/09/2018 9:43 PM REAM CUTTER): PSG in July 2014 revealed mild obstructive sleep apnea with AHI of 12.0. Currently the patient does not use CPAP mask. [id number] premature ovarian failure 06/08/20 18 Assessment & Plan (06/12/2019 2:50 PM REAM CUTTER): Check labs Bilateral primary osteoarthritis of knee 017 Assessment & Plan (01/23/2024 8:24 AM CDT): Right knee is worse than left knee. She is seeing orthopedics today. Causing entire right leg hurt. It is making it harder to swim laps. Assessment & Plan (11/07/2022 2:09 PM CDT): She would an MRI of her knee from Dr. Olsen which is in [place] [facility]. She has a torn meniscus and severe degenerative joint disease. Will refer her back to physical therapy which she stopped prematurely due to illness. Also refer back to Orthopedics to see if they have anything else to offer. Assessment & Plan (11/09/2020 10:17 AM CDT): Has active referral to orthopedics. Pt may call or stop there and make appointment for right knee pain Gastroesophageal reflux disease 02/23/2017 Assessment & Plan (01/23/2024 8:24 AM CDT): Stable on current medication. Continue protonix as ordered. May follow up in 6 months Assessment & Plan (05/19/2022 10:53 AM CDT): Continue Pantoprazole. Pepcid PRN. Assessment & Plan (05/18/2021 8:49 PM CDT): Will restart pantoprazole. Start pepcid prn. Refer to gi Assessment & Plan (04/08/2020 12:19 PM CDT): -worsened in intensity frequency and location. Same symptoms poorly controlled on Nexium 40 mg daily. Associated symptom of epigastric abdominal pain. Associated symptom of nausea. -will schedule for an upper endoscopy for further evaluation. -in the meantime will continue with the Nexium 40 mg once a day. Will titrate the therapy up depending on the results of upper endoscopy. Assessment & Plan (02/05/2020 1:04 PM CDT): Will have her continue Nexium. She can change to Protonix since that is covered under insurance. Will add Carafate 1 g q.i.d.. Will then refer her to GI for evaluation for EGD. Patient voiced understanding of plan of care. Assessment & Plan (11/06/2018 12:43 PM CDT): Continue nexium. Assessment & Plan (06/09/2018 9:45 PM REAM CUTTER): Symptoms well controlled. She was advised to continue with omeprazole. Assessment & Plan (06/05/2017 4:52 PM REAM CUTTER): Improved with nexium. Continue current dose. F/u 6 months and as needed Assessment & Plan (02/23/2017 2:28 PM CDT): We're going to try nexium in place of prilosec. However, if her insurance will not pay for any other PPI's, then I told her to call us and we'll add carafate and refer her to Gi. Check for h. Pylori in stool Raynaud disease 02/23/2017 Overview (02/23/2017): Raynaud's Syndrome Severe depressed bipolar I d isorder without psychotic features 09/30/2013 Overview (10/26/2016): Bipolar disorder Assessment & Plan (07/30/2024 1:27 PM REAM CUTTER): This is managed by Psychiatry. She had increased episode of anxiety and had to change medication. She is still trying to manage it. We can closely with psychiatrist Assessment & Plan (01/23/2024 9:19 AM CDT): Stable. States depression goes up and down . Continues with psychiatry at [facility]. Answer yes to thinks of suicide at times when asked by medical billing specialist during depression screening. I talked to patient about this. Psychiatrist is aware. Patient has plan in place when she has these thoughts. She gives her medication to a friend. She states it primarily happens when she has to go on prednisone and she is aware of this. She has no active thoughts today Assessment & Plan (07/25/2023 2:48 PM REAM CUTTER): Patient has appointment with psychiatrist tomorrow. Follows with [facility] Assessment & Plan (05/19/2022 10:27 AM CDT): Under care of psychiatrist. She is on lexapro, vraylar, and ativan PRN. Has plan to go to ER and/or reach out to friends if has suicidal thoughts. Encouraged exercise, walking as tolerated. Assessment & Plan (11/17/2019 8:36 AM CDT): Under care of psychiatrist. Has plan to go to ER and/or reach out to friends if has suicidal thoughts. Has f/u with psychiatrist next week. Encouraged exercise, walking as tolerated. Asthma 09/30/2013 Overview (10/26/2016): Asthma Assessment & Plan (07/30/2024 1:27 PM REAM CUTTER): Continue albuterol p.r.n. and DuoNeb p.r.n.. Renewed both of these for her today. Symptoms have been stable. Assessment & Plan (01/23/2024 8:22 AM CDT): Stable. Continues on albuterol and duonebs. Uses inhaler prior to swimming. Assessment & Plan (05/19/2022 10:54 AM CDT): Currently Controlled. No longer sees Pulmonology. Takes Albuterol PRN. Albuterol Inhaler refilled at this time. Assessment & Plan (05/07/2019 10:26 AM CDT): Currently controlled. Albuterol prn Assessment & Plan (11/06/2018 12:43 PM CDT): Will follow up with pulmonology. Renewed singulair. Assessment & Plan (06/15/2018 11:53 AM REAM CUTTER): Keep kiet upcoming appt with [facility] on 06/29/2018. No further prednisone at this time. Rx given for both saline for nebs and Albuterol for nebs. Patient reports improvement on saline-only via nebs. Albuterol nebs q4 hrs prn wheezing, coughing or SOB. Go to nearest ER if S/Sxs worsen. Continue Singulair 10mg qd. Assessment & Plan (06/09/2018 9:54 PM REAM CUTTER): Patient has a history of poorly controlled asthma. Currently she is on albuterol inhaler 2 puffs as needed. She has never had a PFT done. Her inhaler technique was reviewed and the technically was clearly explained and demonstrated. PFT, CBC and ABG were ordered. Assessment & Plan (06/05/2017 4:53 PM REAM CUTTER): Restart pulmicort to use for another 1-2 weeks while she is recovering from URI. Stenosis of trachea 09/30/2013 Overview (10/26/2016): Tracheal stenosis Assessment & Plan (06/09/2018 9:59 PM REAM CUTTER): The patient has a history of suicide attempt in 2003, Which ended up in ICU admission, intubation and mechanical ventilation for almost 2 weeks. The patient also underwent tracheostomy which was complicated with tracheal stenosis. The patient also states that even before intubation she had a history of tracheal stenosis (a bird defect). Tracheal stenosis most likely plays a role in her shortness of breath and upper airway wheezing. Rheumatoid arthritis Assessment & Plan (07/30/2024 1:28 PM REAM CUTTER): Managed by Rheumatology. Currently on Plaquenil and leflunomide. Assessment & Plan (01/23/2024 8:27 AM CDT): Stable. Managed by rheumatology. Currently on lyrica, hydroxychloroquine Assessment & Plan (05/19/2022 10:52 AM CDT): Follows with Rheumatology. She is getting Simponi infusions. Continues hydroxychloroquine, and leflunomide. She is wanting to restart Lyrica due to pain in her thighs that is not going away. Lyrica 75mg ordered. Will follow up in 5 months. Resolved Problems Problem Noted Date Diagnosed Date Resolved Date Chronic diarrhea 12/22/2021 03/12/2023 Assessment & Plan (12/22/2021 1:40 PM CDT): -chronic symptom. No prior history of antibiotic use. No travel. No sick exposure. No nighttime symptom. No presence of blood in stool. No tenesmus. No urgency. No family history of colon cancer. No family history of IBD. -will do stool studies including fecal leukocytes to assess for inflammatory component. -will do stool culture, ova and parasite and C difficile to evaluate for possibility of infectious diarrhea. -no prior colonoscopy. Will consider colonoscopy for further evaluation depending on symptom response -will initiate therapy with methylcellulose to be used on a daily basis. -will give Imodium to be used on a p.r.n. basis for diarrhea symptom. Discussed the ways to use the Imodium. 2 mg p.r.n. for diarrhea. No more than 8 pills a day. Closed head injury 07/13/2021 Chest pain 12/06/2020 05/18/2021 Abdominal pain 04/08/2020 11/07/2022 Assessment & Plan (12/22/2021 1:38 PM CDT): -variable intensity frequency and location. Associated with chronic diarrhea. -recent laboratory workup reviewed -EGD as above -will give her dicyclomine to be used on a p.r.n. basis for abdominal pain -will also initiate therapy with methylcellulose to be used daily. - Recommended, discussed in detail the rationale and mechanism of action for measures below and counseled for dietary and lifestyle changes as noted below. These are soft guidelines that with increase GI health and its overall efficiency. -ROOM TEMPERATURE BEVERAGES. -Avoid carbonated drinks -avoid artificial sugars. -Maintain good hydration. With approximately 64 oz of water a day -AVOID RAW VEGETABLES. EAT COOKED VEGETABLES. -drink coconut water as one of the preferred beverages. -consider use of yogurt, which is a good probiotic. -consider use of honey with lemon, jaja if possible. -Use benefibre, or fibrecon if methylcellulose not available or cannot be tolerated. One tbsp once a day. -MINDFULLNESS WITH 20MIN FOR TWICE A DAY. -30 minutes of low intensity walking every day. Assessment & Plan (04/08/2020 12:20 PM CDT): -will give Levsin to be used on a p.r.n. basis for abdominal pain. -will also give methylcellulose to be used on a daily basis. This will act as a probiotic and overall improve overall GI health. Diarrhea 04/08/2020 05/12/2020 Assessment & Plan (04/08/2020 12:20 PM CDT): -will initiate therapy with methylcellulose. She has had loose bowel movements all her life. Will titrate the therapy up/do more evaluation depending on her response. Leukocytosis 11/17/2019 07/30/2024 Assessment & Plan (11/17/2019 8:35 AM CDT): Chronic elevation of WBC. Last WBC 14. Borderline personality disorder 11/01/2019 07/30/2024 Lipid screening 11/06/2018 05/07/2019 Morbid obesity 06/09/2018 09/28/2020 Assessment & Plan (06/09/2018 9:50 PM REAM CUTTER): Weight management counseling was provided for 15 min. Lifestyle and diet modification were discussed with the patient in details. Bariatric surgery was also discussed with the patient in detail. Noncompliance 04/26/2018 11/06/2018 Assessment & Plan (04/26/2018 1:17 PM CDT): Will refer to social work ACO Restrictive airway disease 04/26/2018 0 01/23/2024 Assessment & Plan (05/18/2021 8:55 PM CDT): Hx of asthma/ reactive airway disease. Recalls fluticasone making her have flu like symptoms, but can tolerate prednisone. Will try mometasone-formoterol (dulera). Refer to pulmonology. Renew duoneb which she used while she had covid and found helpful Assessment & Plan (11/09/2020 10:15 AM CDT): Currently well controlled. Doing well with Singulair, rarely has to use albuterol. Assessment & Plan (04/26/2018 1:50 PM CDT): Refer to pulmonology - Spirometry shows moderate restriction Morbid obesity with BMI of 50.0-59.9, adult 11/13/2017 11/06/2018 Chronic left shoulder pain 09/06/2017 0 01/23/2024 Assessment & Plan (09/06/2017 4:01 PM REAM CUTTER): Will give diclofenac twice daily for pain. X-ray of left shoulder and refer to ortho for evaluation Urinary frequency 06/05/2017 05/07/2019 Assessment & Plan (11/06/2018 12:42 PM CDT): She is going to trial off ddavp, tapering off medication over a few weeks. If nighttime frequency or bedwetting restarts, then she will restart medication or call me for further direction. Assessment & Plan (06/05/2017 4:54 PM REAM CUTTER): Urine dip was negative. Will send for culture. Hold on treatment until culture returns Equinus contracture of right ankle 04/05/2017 11/07/2022 Other enthesopathy of right foot 04/05/2017 11/07/2022 Plantar fasciitis, left 02/23/201710/22 Overview (09/06/2017): Planter Fascitis Assessment & Plan (02/23/2017 2:23 PM CDT): Will refer to podiatry for evaluation. Dissociative identity disorder 02/23/2017 02/23/2017 Overview (02/23/2017): Dissociative identity disorder Immunizations Immunization Administration Dates Next Due DTP 02/26/1988, 4,1982,08/24,1982 Hep B, Unspecified 06/04/1999,10/16/1998, 999 Influenza, Quadrivalent, Spl it, Intramuscular 05/02/2016 Influenza, Quadrivalent, Spl it, Preservative Free, Intramuscular 07/25/2023,05/19/2022,05/12/2020,05/07,06/05/2017 Influenza, Trivalent, IM (MDV) 06/27/2021,2013,07/31/2012 Influenza, Trivalent, Preser vative Free, Intramuscular 07/30/2024 Influenza, Unspecified 07/24/2023,2022,05/18/2021(Defer red: Patient Refused),11/06/2018(Deferred: Patient Refused),04/23/2018(Deferred: Patient Refused) OPV 11/16/1983, 3,1982,06/25 Pneumococcal Conjugate Pcv20 05/19/2022 Rubella 10/13/1983 Td, Unspecified 02/05/1997 Tdap 05/12/2020 Varicella 10/22/1986(Deferred: Other - disease in first grade) Social History Tobacco Use Types Packs/Day Years Used Date Smoking Tobacco: Former Cigarettes Passive Smoke Exposure: Past Smokeless Tobacco: Never Tobacco Cessation:Counseling Given: Not Answered Comments:Smokes marijuana Alcohol Use Standard Drinks/Week Comments [...] often do you attend chur ch or congregation services? 1 to 4 times per year 11/01/2019 Do you belong to any clubs o r organizations such as hoahaoism groups, unions, fraternal or athletic groups, or [...] you are drinking? Patient does not drink 4 Q3: How often do you have si [...] on file Legal Sex Female 1:17 PM REAM CUTTER Gender Identity Not on file Sexual Orientation Not on file Last Filed Vital Signs Vital Sign Reading Time Taken Comments Blood Pressure 120/87 10/24/2024 8:42 AM CDT Pulse 78 10/24/2024 8:42 AM CDT Temperature 36.4 C (97.6 F) 09/24/2024 12:41 PM REAM CUTTER Respiratory Rate 18 10/24/2024 8:42 AM CDT Oxygen Saturation 98% 09/24/2024 12:41 PM REAM CUTTER Inhaled Oxygen Concentration - - Weight 138.3 kg (305 lb) 10/24/2024 8:42 AM CDT Height 165.1 cm (5' 5 ) 10/24/2024 8:42 AM CDT Body Mass Index 50.75 10/24/2024 8:42 AM CDT Plan of Treatment Not on file Procedures Procedure Name Priority Date/Time Associated Diagnosis Comments TRANSTHORACIC ECHO (TTE) COMPLETE W DOPPLER/CF WO CONTRAST Routine 10/08/2024 1:23 PM CDT Tachycardia Palpitations Intermittent palpitations MCT - MOBILE CARDIAC TELEMETRY EVENT MONITOR Routine 10/08/2024 12:27 PM CDT Tachycardia Palpitations Intermittent palpitations ECG 12-LEAD Routine 09/11/2024 1:04 PM REAM CUTTER Tachycardia H. PYLORI BREATH TEST Routine 08/29/2024 8:30 AM REAM CUTTER Morbid obesity (HCC) BMI 50.0-59.9, adult (HCC) Arthritis Gastroesophageal reflux disease, unspecified whether esophagitis present Essential hypertension Insulin resistance Obstructive sleep apnea Stenosis of trachea ECG 12-LEAD Routine 08/29/2024 8:13 AM REAM CUTTER Morbid obesity (HCC) BMI 50.0-59.9, adult (HCC) Arthritis Gastroesophageal reflux disease, unspecified whether esophagitis present Essential hypertension Insulin resistance Obstructive sleep apnea Stenosis of trachea US ABDOMEN COMPLETE Schedule Routine, Read Routine (OP Routine) 08/29/2024 8:05 AM REAM CUTTER Preoperative clearance US THYROID Schedule Routine, Read Routine (OP Routine) 08/29/2024 8:05 AM REAM CUTTER Multiple thyroid nodules XR CHEST PA LATERAL 2 VIEWS Schedule Routine, Read Routine (OP Routine) 08/29/2024 7:29 AM REAM CUTTER Preoperative clearance EGFR Routine 08/29/2024 7:15 AM REAM CUTTER Morbid obesity (HCC) BMI 50.0-59.9, adult (HCC) Arthritis Gastroesophageal reflux disease, unspecified whether esophagitis present Essential hypertension Insulin resistance Obstructive sleep apnea Stenosis of trachea EGFR Routine 08/29/2024 7:15 AM REAM CUTTER High risk medication use DIFFERENTIAL AUTO Routine 08/29/2024 7:1 5 AM REAM CUTTER Morbid obesity (HCC) BMI 50.0-59.9, adult (HCC) Arthritis Gastroesophageal reflux disease, unspecified whether esophagitis present Essential hypertension Insulin resistance Obstructive sleep apnea Stenosis of trachea DIFFERENTIAL AUTO Routine 08/29/2024 7:1 5 AM REAM CUTTER High risk medication use CBC WITH AUTO DIFFERENTIAL Routine 08/29/2024 7:15 AM REAM CUTTER Morbid obesity (HCC) BMI 50.0-59.9, adult (HCC) Arthritis Gastroesophageal reflux disease, unspecified whether esophagitis present Essential hypertension Insulin resistance Obstructive sleep apnea Stenosis of trachea COMPREHENSIVE METABOLIC PANEL Routine 08/29/2024 7:15 AM REAM CUTTER Morbid obesity (HCC) BMI 50.0-59.9, adult (HCC) Arthritis Gastroesophageal reflux disease, unspecified whether esophagitis present Essential hypertension Insulin resistance Obstructive sleep apnea Stenosis of trachea HEMOGLOBIN A1C Routine 08/29/2024 7:15 AM REAM CUTTER Morbid obesity (HCC) BMI 50.0-59.9, adult (HCC) Arthritis Gastroesophageal reflux disease, unspecified whether esophagitis present Essential hypertension Insulin resistance Obstructive sleep apnea Stenosis of trachea Abnormal finding of blood chemistry, unspecified TSH Routine 08/29/2024 7:15 AM REAM CUTTER Morbid obesity (HCC) BMI 50.0-59.9, adult (HCC) Arthritis Gastroesophageal reflux disease, unspecified whether esophagitis present Essential hypertension Insulin resistance Obstructive sleep apnea Stenosis of trachea LIPID PANEL Routine 08/29/2024 7:15 AM REAM CUTTER Morbid obesity (HCC) BMI 50.0-59.9, adult (HCC) Arthritis Gastroesophageal reflux disease, unspecified whether esophagitis present Essential hypertension Insulin resistance Obstructive sleep apnea Stenosis of trachea PTH Routine 08/29/2024 7:15 AM REAM CUTTER Morbid obesity (HCC) BMI 50.0-59.9, adult (HCC) Arthritis Gastroesophageal reflux disease, unspecified whether esophagitis present Essential hypertension Insulin resistance Obstructive sleep apnea Stenosis of trachea VITAMIN D 25 HYDROXY Routine 08/29/2024 7:15 AM REAM CUTTER Morbid obesity (HCC) BMI 50.0-59.9, adult (HCC) Arthritis Gastroesophageal reflux disease, unspecified whether esophagitis present Essential hypertension Insulin resistance Obstructive sleep apnea Stenosis of trachea VITAMIN B12 Routine 08/29/2024 7:15 AM REAM CUTTER Morbid obesity (HCC) BMI 50.0-59.9, adult (HCC) Arthritis Gastroesophageal reflux disease, unspecified whether esophagitis present Essential hypertension Insulin resistance Obstructive sleep apnea Stenosis of trachea IRON PROFILE W/ IBC Routine 08/29/2024 7 :15 AM REAM CUTTER Morbid obesity (HCC) BMI 50.0-59.9, adult (HCC) Arthritis Gastroesophageal reflux disease, unspecified whether esophagitis present Essential hypertension Insulin resistance Obstructive sleep apnea Stenosis of trachea History of insulin resistance FERRITIN Routine 08/29/2024 7:15 AM REAM CUTTER Morbid obesity (HCC) BMI 50.0-59.9, adult (HCC) Arthritis Gastroesophageal reflux disease, unspecified whether esophagitis present Essential hypertension Insulin resistance Obstructive sleep apnea Stenosis of trachea Abnormal finding of blood chemistry, unspecified NICOTINE METABOLITE SCREEN, URINE Routine 08/29/2024 7:15 AM REAM CUTTER Morbid obesity (HCC) BMI 50.0-59.9, adult (HCC) Arthritis Gastroesophageal reflux disease, unspecified whether esophagitis present Essential hypertension Insulin resistance Obstructive sleep apnea Stenosis of trachea CRP (ACUTE PHASE) Routine 08/29/2024 7:1 5 AM REAM CUTTER Rheumatoid arthritis involving multiple sites, unspecified whether rheumatoid factor present (HCC) ERYTHROCYTE SEDIMENTATION RATE Routine 08/29/2024 7:15 AM REAM CUTTER Rheumatoid arthritis involving multiple sites, unspecified whether rheumatoid factor present (HCC) COMPREHENSIVE METABOLIC PANEL Routine 08/29/2024 7:15 AM REAM CUTTER High risk medication use CBC WITH AUTO DIFFERENTIAL Routine 08/29/2024 7:15 AM REAM CUTTER High risk medication use [place] ARTHROCENTESIS ASPIR&/INJ MAJOR JT/BURSA W/O US Routine 08/01/2024 8:00 AM REAM CUTTER Primary osteoarthritis of right knee HEPATITIS PANEL, ACUTE Routine 09/17/2019 2:35 PM REAM CUTTER Arthralgia, unspecified joint from Last 3 Months or Most Recently Relevant to Health Maintenance Results * TRANSTHORACIC ECHO (TTE) COMPLETE W DOPPLER/CF WO CONTRAST (10/08/2024 1:23 PM CDT) Anatomical Region Laterality Modality Ultrasound 10/08/2024 12:0 4 PM CDT Narrative 10/08/2024 3:22 PM CDT [address] [place] [address] Echocardiogram Report Patient Name: RODRÍGUEZ THOMASON : 1980 Study Date: 10/08/2024 12:04:44 PM Gender: F Tech: AA Location: echo room 1 Ref Provider: ELIZABETH JANG Height(Cm): 165 BSA: 2.54 Weight(Kg): 140.6 Quality: Good Order Provider: ELIZABETH JANG PROCEDURES: Echocardiographic Report: Transthoracic echocardiogram with complete 2D, M-Mode, and color Doppler examination. INDICATIONS: tachy,palpitations, R00.0 Tachycardia, unspecified, R00.2 Palpitations, and R00.2 Palpitations. MEASUREMENTS: 2D/MM Value Range Doppler Value Range EF Teich 2D 63.4 % [ 54.0 - 74.0 ] NA Vmax 3.21 cm2 EF Mod BP 58 % [ 54 - 74 ] AV Mean PG 3 mmHg LVIDd 2D 4.17 cm [ 3.80 - 5.20 ] AV Peak Barrett 1.20 m/s [ 1.00 - 1.70 ] LVIDs 2D 2.75 cm [ 2.20 - 3.50 ] AV VTI 23.77 cm LVPWd 2D 1.57 cm [ 0.60 - 0.90 ] LVOT Diam 2.02 cm IVSd 2D 1.46 cm [ 0.60 - 0.90 ] LVOT Peak Barrett 1.20 m/s [ 0.70 - 1.10 ] LA Dimension MM 4.87 cm [ 2.70 - 3.80 ] LVOT VTI 25.74 cm AoR Diam MM 2.72 cm [ 2.70 - 3.70 ] MV E Peak Barrett 0.87 m/s [ 0.60 - 1.30 ] ACS MM 1.86 cm MV A Peak Barrett 0.67 m/s [ 1.00 - 1.20 ] MV Mean PG 2 mmHg MV PHT 54 msec [ 20 - 100 ] MVA 4.20 MV Decel Time 185 msec [ 104 - 258 ] PV Peak Barrett 1.46 m/s [ 0.40 - 0.80 ] TR Peak Barrett 1.71 m/s [ 1.00 - 2.80 ] TR Peak PG 12 mmHg RVSP 17.00 mmHg [ 10.00 - 36.00 ] E` 0.11 m/s E/E` 8.16 [ <= 10.00 ] PA Pressure 5.00 mmHg [ 10.00 - 36.00 ] 2D/MM Value Range Doppler Value Range - FINDINGS: Atrial Septum: Normal atrial septum. Left Ventricle: Normal left ventricular systolic function with no focal wall motion abnormalities. Normal left ventricular size. Impaired diastolic relaxation Grade I. Ejection fraction is measured at 58 %. Left Atrium: The left atrium is normal in size. Right Ventricle: Normal right ventricular size. Normal right ventricular systolic function. Right Atrium: The right atrium is normal in size. Aortic Valve: Normal structure of the aortic valve. Mitral Valve: Normal structure of the mitral valve. Pulmonic Valve: Normal structure of the pulmonic valve. Tricuspid Valve: Normal right ventricular systolic pressure. Estimated peak RVSP is 25 mmHg. Mild tricuspid regurgitation. Pericardium: Normal pericardium with no significant pericardial effusion. Aorta: Normal aortic root. Sinus of Valsalva is normal. Aortic arch is normal. Descending aorta is normal. IVC: Normal size and normal respiratory collapse consistent with normal right atrial pressure (<5 mmHg). Pulmonary Artery: Normal pulmonary artery size. CONCLUSIONS: Probably Normal left ventricular systolic function with no focal wall motion abnormalities. Normal left ventricular size. Impaired diastolic relaxation Grade I. Ejection fraction is measured at 58 %. Normal right ventricular systolic pressure. Estimated peak RVSP is 25 mmHg. Mild tricuspid regurgitation. Technically difficult study with suboptimal views. Electronically Signed By: Santiago Brown MD 10/08/2024 3:20:54 PM CDT Procedure Note Santiago Brown MD - 10/08/[address] [place] [address] Echocardiogram Report Patient Name: RODRÍGUEZ THOMASON : 1980 Study Date: 10/08/2024 12:04:44 PM Gender: F Tech: AA Location: echo room 1 Ref Provider: ELIZABETH JANG Height(Cm): 165 BSA: 2.54 Weight(Kg): 140.6 Quality: Good Order Provider: ELIZABETH JANG PROCEDURES: Echocardiographic Report: Transthoracic echocardiogram with complete 2D, M-Mode, and color Dopplerexamination. INDICATIONS: tachy,palpitations, R00.0 Tachycardia, unspecified, R00.2 Palpitations,and R00.2 Palpitations. MEASUREMENTS: 2D/MM Value Range Doppler ValueRange EF Teich 2D 63.4 % [ 54.0 - 74.0 ] NA Vmax 3.21cm2 EF Mod BP 58 % [ 54 - 74 ] AV Mean PG 3 mmHg LVIDd 2D 4.17 cm [ 3.80 - 5.20 ] AV Peak Barrett 1.20 m/s[ 1.00 - 1.70 ] LVIDs 2D 2.75 cm [ 2.20 - 3.50 ] AV VTI 23.77cm LVPWd 2D 1.57 cm [ 0.60 - 0.90 ] LVOT Diam 2.02cm IVSd 2D 1.46 cm [ 0.60 - 0.90 ] LVOT Peak Barrett 1.20 m/s[ 0.70 - 1.10 ] LA Dimension MM 4.87 cm [ 2.70 - 3.80 ] LVOT VTI 25.74cm AoR Diam MM 2.72 cm [ 2.70 - 3.70 ] MV E Peak Barrett 0.87 m/s[ 0.60 - 1.30 ] ACS MM 1.86 cm MV A Peak Barrett 0.67 m/s[ 1.00 - 1.20 ] MV Mean PG 2 mmHg MV PHT 54 msec [ 20 - 100 ] MVA 4.20 MV Decel Time 185 msec [ 104 - 258 ] PV Peak Barrett 1.46 m/s [ 0.40 - 0.80 ] TR Peak Barrett 1.71 m/s [ 1.00 - 2.80 ] TR Peak PG 12 mmHg RVSP 17.00 mmHg [ 10.00 - 36.00 ] E` 0.11 m/s E/E` 8.16 [ <= 10.00 ] PA Pressure 5.00 mmHg [ 10.00 - 36.00 ] 2D/MM Value Range Doppler ValueRange - FINDINGS: Atrial Septum: Normal atrial septum. Left Ventricle: Normal left ventricular systolic function with no focal wall motionabnormalities. Normal left ventricular size. Impaired diastolic relaxation Grade I. Ejectionfraction is measured at 58 %. Left Atrium: The left atrium is normal in size. Right Ventricle: Normal right ventricular size. Normal right ventricular systolicfunction. Right Atrium: The right atrium is normal in size. Aortic Valve: Normal structure of the aortic valve. Mitral Valve: Normal structure of the mitral valve. Pulmonic Valve: Normal structure of the pulmonic valve. Tricuspid Valve: Normal right ventricular systolic pressure. Estimated peak RVSP is 25mmHg. Mild tricuspid regurgitation. Pericardium: Normal pericardium with no significant pericardial effusion. Aorta: Normal aortic root. Sinus of Valsalva is normal. Aortic arch is normal.Descending aorta is normal. IVC: Normal size and normal respiratory collapse consistent with normal rightatrial pressure (<5 mmHg). Pulmonary Artery: Normal pulmonary artery size. CONCLUSIONS: Probably Normal left ventricular systolic function with no focal wallmotion abnormalities. Normal left ventricular size. Impaired diastolic relaxationGrade I. Ejection fraction is measured at 58 %. Normal right ventricular systolic pressure. Estimated peak RVSP is 25mmHg. Mild tricuspid regurgitation. Technically difficult study with suboptimal views. Electronically Signed By: Santiago Brown MD 10/08/2024 3:20:54 PM CDT Elizabeth Jang NP CV ECHO PROCEDURES Final Resu lt * MCT Mobile Cardiac Telemetry Event Monitor (10/08/2024 12:27 PM CDT) Anatomical Region Laterality Modality Electrocardiogra phy 10/21/2024 11:5 9 PM CDT Narrative 10/26/2024 3:05 PM CDT [address] [address] EVENT MONITOR Patient Name: RODRÍGUEZ THOMASON L : 1980 Study Date: 2024-10-21 11:59:00 PM Gender: F Tech: Ref Provider: ELIZABETH JANG Height(Cm): BSA: Weight(Kg): Order Provider: ELIZABETH JANG PROCEDURES: Event Report: Event Monitor Report. INDICATIONS: R00.0 Tachycardia, unspecified, R00.2 Palpitations, and R00.2 Palpitations. FINDINGS: Protocol: Recording Duration (Ordered): 12d 23h Study Quality: Study quality is good. CONCLUSIONS: 1. Predominant rhythm is normal sinus rhythm. 2. No prolonged pauses. 3. Rare PACs. 4. Rare PVCs. 5. There are no supraventricular tachycardia events noted. 6. There are no ventricular tachycardia events noted. 7. The patient recorded no symptoms during the study. 8. No significant conduction system disease is demonstrated. 9. No malignant arryhthmias were demonstrated. Electronically Signed By: JuanJ ose Islas MD, [facility] 2024-10-26 9:16:04 PM CDT Procedure Note Imtiaz Ahmadi MD / Juan Jose Islas MD - 10/28/[address] [address] EVENT MONITOR Patient Name: RODRÍGUEZ THOMASON L : 1980 Study Date: 2024-10-21 11:59:00 PM Gender: F Tech: Ref Provider: ELIZABETH JANG Height(Cm): BSA: Weight(Kg): Order Provider: ELIZABETH JANG PROCEDURES: Event Report: Event Monitor Report. INDICATIONS: R00.0 Tachycardia, unspecified, R00.2 Palpitations, and R00.2Palpitations. FINDINGS: Protocol: Recording Duration (Ordered): 12d 23h Study Quality: Study quality is good. CONCLUSIONS: 1. Predominant rhythm is normal sinus rhythm. 2. No prolonged pauses. 3. Rare PACs. 4. Rare PVCs. 5. There are no supraventricular tachycardia events noted. 6. There are no ventricular tachycardia events noted. 7. The patient recorded no symptoms during the study. 8. No significant conduction system disease is demonstrated. 9. No malignant arryhthmias were demonstrated. Electronically Signed By: Juan Jose Islas MD, [facility] 2024-10-26 9:16:04 PM CDT Elizabeth Jang CV CARDIAC SERVICES PROCEDURE S Edited * ECG 12 lead (09/11/2024 1:04 PM REAM CUTTER) Elizabeth Jang NP ECG ORDERABLES Final Result * H. pylori breath test (08/29/2024 8:30 AM REAM CUTTER) H. pylori, breath test Negative Negative [place] ref Lab Comment: Result indicates the absence of current Helicobacter pylori infection. Test Performed by: [facility] [address] [place] [address] Patent Drafter: Rebecca Quinteros Ph.D.; CLIA# [id number] Breath 08/29/2024 8:30 AM REAM CUTTER 08/29/2024 8:42 AM REAM CUTTER Armond Nettles NP LAB BODY FLUIDS AND STOOLS ORDERABLES Final Result Performing Organization Address [facility] Co de Phone Number [facility] ([place]) 1 [facility] Department [place] [address] [facility] * ECG 12 lead (08/29/2024 8:13 AM REAM CUTTER) 08/29/2024 8:11 AM REAM CUTTER Narrative [facility] - 08/29/2024 11:08 AM REAM CUTTER Vent Rate: 65 bpm RR Interval: 916 msec [place] Interval: 203 msec QRS Duration: 98 msec QT Interval: 396 msec QTC Interval: 408 msec P-R-T [place]: 48 - 42 - 58 degrees IMPRESSION: SINUS RHYTHM LOW QRS VOLTAGE IN PRECORDIAL LEADS [QRS DEFLECTION < 1.0 mV IN CHEST LEADS] BORDERLINE ECG NO CHANGE FROM PREVIOUS TRACING NOTED Electronically Signed By: Santiago Brown MD Armond Nettles NP ECG ORDERABLES Final Resul t Performing Organization Address City/[facility] Hospital/ZIP Co de Phone Number [facility] [employer] [facility] * US Abdomen Complete (08/29/2024 8:05 AM REAM CUTTER) Anatomical Region Laterality Modality Abdomen N/A Ultrasound 09/01/2024 1:31 AM REAM CUTTER Narrative 09/01/2024 1:33 AM REAM CUTTER EXAM DESCRIPTION: US ABDOMEN COMPLETE REASON FOR STUDY: preoperative TECHNIQUE: Grayscale images acquired of the abdomen and recorded on PACS. Additional selected color Doppler and spectral images recorded. COMPARISON: None FINDINGS: PANCREAS: The pancreas was poorly visualized due to overlying bowel gas. LIVER: The liver demonstrates an increase in echotexture with attenuation of the ultrasound beam characteristic of fatty infiltration. No cystic or solid mass lesions were seen within the liver. The liver measures 17.7 cm in greatest diameter. GALLBLADDER: Gallbladder surgically absent. BILIARY: There is no intrahepatic or extrahepatic biliary ductal dilatation. Common bile duct measures 4 mm . INFERIOR VENA CAVA: Normal flow. AORTA: No aneurysm. RIGHT KIDNEY: Normal size. Normal echogenicity. No solid mass or cyst. No hydronephrosis. Measures 11.1 cm in length. LEFT KIDNEY: Normal size. Normal echogenicity. No solid mass or cyst. No hydronephrosis. Measures 12.3 cm in length. SPLEEN: Normal size. No solid masses. PERITONEAL AND PLEURAL SPACES: No ascites or effusions. OTHER: No other significant finding. IMPRESSION: Fatty infiltration of the liver. Surgical absence of the gallbladder. THIS IS AN ELECTRONICALLY VERIFIED FINAL REPORT 09/01/2024 1:33 AM - Electronically signed by Gee Dominguez M.D. KT: AFL Report ID: [id number] Reading Location: [id number] Procedure Note Gee Dominguez MD - 09/01/2024 EXAM DESCRIPTION: US ABDOMEN COMPLETE REASON FOR STUDY: preoperative TECHNIQUE: Grayscale images acquired of the abdomen and recorded on PACS. Additional selected color Doppler and spectral images recorded. COMPARISON: None FINDINGS: PANCREAS: The pancreas was poorly visualized due to overlying bowel gas. LIVER: The liver demonstrates an increase in echotexture withattenuation of the ultrasound beam characteristic of fatty infiltration. No cystic orsolid mass lesions were seen within the liver. The liver measures 17.7 cm in greatest diameter. GALLBLADDER: Gallbladder surgically absent. BILIARY: There is no intrahepatic or extrahepatic biliary ductaldilatation. Common bile duct measures 4 mm . INFERIOR VENA CAVA: Normal flow. AORTA: No aneurysm. RIGHT KIDNEY: Normal size. Normal echogenicity. No solid mass or cyst.No hydronephrosis. Measures 11.1 cm in length. LEFT KIDNEY: Normal size. Normal echogenicity. No solid mass or cyst. No hydronephrosis. Measures 12.3 cm in length. SPLEEN: Normal size. No solid masses. PERITONEAL AND PLEURAL SPACES: No ascites or effusions. OTHER: No other significant finding. IMPRESSION: Fatty infiltration of the liver. Surgical absence of the gallbladder. THIS IS AN ELECTRONICALLY VERIFIED FINAL REPORT 09/01/2024 1:33 AM - Electronically signed by Gee Dominguez M.D. KT: ALF Report ID: [id number] Reading Location: [id number] us Elizabeth Jang NP IMG US PROCEDURES Final Resul t * US Thyroid (08/29/2024 8:05 AM REAM CUTTER) Anatomical Region Laterality Modality Head and Neck N/A Ultrasound 09/01/2024 12:0 6 PM REAM CUTTER Narrative 09/01/2024 12:10 PM REAM CUTTER EXAM DESCRIPTION: US THYROID REASON FOR STUDY: Multiple thyroid nodules. Follow up on US thyroid 1 year TI-RADS 4 TECHNIQUE: Ultrasound of the thyroid was performed with grayscale and color doppler. COMPARISON: Thyroid ultrasound dated 07/07/2024. FINDINGS: RIGHT: The right thyroid lobe measures 4.6 x 1.8 x 1.7 cm. Multiple thyroid nodules. Index nodules as follows: Nodule 1: Upper pole solid hypoechoic 0.9 x 0.4 x 0.6 cm (TR 4) and previously up to 0.9 x 0.5 x 0.4 cm. Nodule 2: Upper pole solid hypoechoic 0.5 x 0.2 x 0.4 cm (TR 4) and previously up to 0.5 x 0.5 x 0.3 cm. LEFT: The left thyroid lobe measures 4.8 x 1.4 x 1.7 cm. Multiple thyroid nodules. Index nodules as follows: Nodule 3: Midpole solid hypoechoic 1 x 0.9 x 0.7 cm (TR 4) and previously up to 1 x 0.9 x 0.6 cm. Nodule 4: Mid to lower pole hypoechoic 0.5 x 0.3 x 0.5 cm (TR 4) and previously up to 0.4 x 0.4 x 0.2 cm. ISTHMUS: The isthmus measures 0.13 cm in AP dimension. No focal measured nodule. IMPRESSION: Multiple bilateral thyroid nodules as seen on the previous ultrasound dated 09/07/2023. None of the nodules meet criteria for fine-needle aspiration at this time. ACR TI-RADS Risk Category: 4 REFERENCE: According to the ACR Thyroid Imaging, Reporting and Data System (TI-RADS): White Paper of the ACR TI-RADS Committee Nov, 2016 recommendations regarding the management of thyroid nodules are as follows: 1. TI-RADS 1: Risk of malignancy <2%, no FNA or follow up required. 2. TI-RADS 2: Risk of malignancy <2%, no FNA or follow up required. 3. TI-RADS 3: Risk of malignancy 2%-5%. Nodules 1.5 cm or greater follow up at 1, 3 and 5 years recommended, for nodules 2.5 cm or greater FNA recommended. 4. TI-RADS 4: Risk of malignancy 5%-20% Nodules 1.0 cm or greater follow up at 1, 2, 3 and 5 years recommended, for nodules 1.5 cm or greater FNA recommended 5. TI-RADS 5: Risk of malignancy >20%. Nodules 0.5 cm or greater annual follow up for 5 years recommended, for nodules 1.0 cm or greater FNA recommended. The ACT TI-RADS committee recommends targeting no more than two nodules for FNA. If three or more nodules meet criteria for FNA, the two with the most suspicious appearance based on ACR TI-RADS points should be sampled. THIS IS AN ELECTRONICALLY VERIFIED FINAL REPORT 09/01/2024 12:10 PM - Electronically signed by Darryl Marrero D.O. AP: AP Report ID: [id number] Reading Location: [id number] Procedure Note Darryl Marrero, DO - 09/01/2024 EXAM DESCRIPTION: US THYROID REASON FOR STUDY: Multiple thyroid nodules. Follow up on US thyroid 1year TI-RADS 4 TECHNIQUE: Ultrasound of the thyroid was performed with grayscale andcolor doppler. COMPARISON: Thyroid ultrasound dated 07/07/2024. FINDINGS: RIGHT: The right thyroid lobe measures 4.6 x 1.8 x 1.7 cm. Multiplethyroid nodules. Index nodules as follows: Nodule 1: Upper pole solid hypoechoic 0.9 x 0.4 x 0.6 cm (TR 4) andpreviously up to 0.9 x 0.5 x 0.4 cm. Nodule 2: Upper pole solid hypoechoic 0.5 x 0.2 x 0.4 cm (TR 4) andpreviously up to 0.5 x 0.5 x 0.3 cm. LEFT: The left thyroid lobe measures 4.8 x 1.4 x 1.7 cm. Multiplethyroid nodules. Index nodules as follows: Nodule 3: Midpole solid hypoechoic 1 x 0.9 x 0.7 cm (TR 4) and previouslyup to 1 x 0.9 x 0.6 cm. Nodule 4: Mid to lower pole hypoechoic 0.5 x 0.3 x 0.5 cm (TR 4) and previously up to 0.4 x 0.4 x 0.2 cm. ISTHMUS: The isthmus measures 0.13 cm in AP dimension. No focalmeasured nodule. IMPRESSION: Multiple bilateral thyroid nodules as seen on the previous ultrasounddated 09/07/2023. None of the nodules meet criteria for fine-needle aspirationat this time. ACR TI-RADS Risk Category: 4 REFERENCE: According to the ACR Thyroid Imaging, Reporting and Data System (TI-RADS): White Paper of the ACR TI-RADS Committee Nov, 2016recommendations regarding the management of thyroid nodules are as follows: 1. TI-RADS 1: Risk of malignancy <2%, no FNA or follow up required. 2. TI-RADS 2: Risk of malignancy <2%, no FNA or follow up required. 3. TI-RADS 3: Risk of malignancy 2%-5%. Nodules 1.5 cm or greater followup at 1, 3 and 5 years recommended, for nodules 2.5 cm or greater FNArecommended. 4. TI-RADS 4: Risk of malignancy 5%-20% Nodules 1.0 cm or greater followup at 1, 2, 3 and 5 years recommended, for nodules 1.5 cm or greater FNA recommended 5. TI-RADS 5: Risk of malignancy >20%. Nodules 0.5 cm or greater annual follow up for 5 years recommended, for nodules 1.0 cm or greater FNA recommended. The ACT TI-RADS committee recommends targeting no more than two nodulesfor FNA. If three or more nodules meet criteria for FNA, the two with themost suspicious appearance based on ACR TI-RADS points should be sampled. THIS IS AN ELECTRONICALLY VERIFIED FINAL REPORT 09/01/2024 12:10 PM - Electronically signed by Darryl Marrero D.O. AP: AP Report ID: [id number] Reading Location: [id number] us Elizabeth Jang PATTERN CUTTER IMG US PROCEDURES Final Resul t * XR Chest Pa Lateral 2 Views (08/29/2024 7:29 AM REAM CUTTER) Anatomical Region Laterality Modality Body, Chest N/A Computed Radiogr aphy 09/01/2024 1:33 AM REAM CUTTER Narrative 09/01/2024 1:34 AM REAM CUTTER EXAM DESCRIPTION: XR CHEST PA LATERAL 2 VIEWS REASON FOR STUDY: Bypass 6 months ago Prev smoker Asthma high BP Pre op for gastric bypass TECHNIQUE: 2 radiographic view(s) of the chest. COMPARISON: 12/13/2020 FINDINGS: LUNGS: No focal opacity, pleural effusion, or pneumothorax. HEART/MEDIASTINUM: Cardiac silhouette normal in size. Mediastinal and hilar contours appear normal. LINES/TUBES: None. BONES: No acute osseous abnormality. IMPRESSION: No acute cardiopulmonary abnormality. THIS IS AN ELECTRONICALLY VERIFIED FINAL REPORT 09/01/2024 1:34 AM - Electronically signed by Gee Dominguez M.D. KT: ALF Report ID: [id number] Reading Location: [id number] Procedure Note Gee Dominguez MD - 09/01/2024 EXAM DESCRIPTION: XR CHEST PA LATERAL 2 VIEWS REASON FOR STUDY: Bypass 6 months ago Prev smoker Asthma high BP Pre op for gastricbypass TECHNIQUE: 2 radiographic view(s) of the chest. COMPARISON: 12/13/2020 FINDINGS: LUNGS: No focal opacity, pleural effusion, or pneumothorax. HEART/MEDIASTINUM: Cardiac silhouette normal in size. Mediastinal andhilar contours appear normal. LINES/TUBES: None. BONES: No acute osseous abnormality. IMPRESSION: No acute cardiopulmonary abnormality. THIS IS AN ELECTRONICALLY VERIFIED FINAL REPORT 09/01/2024 1:34 AM - Electronically signed by Gee Dominguez M.D. KT: KT Report ID: [id number] Reading Location: [place] [id number] us Elizabeth Jang PATTERN CUTTER IMG XR PROCEDURES Final Resul t * eGFR (08/29/2024 7:15 AM REAM CUTTER) eGFR >90 >=60 mL/min/1. 73 m2 Comment: Interpretive Data Reference Interval Normal >/= 90 mL/min/1.73m2 Mildly decreased* 60 - 89 mL/min/1.73m2 Mildly to moderately decreased 45 - 59 mL/min/1.73m2 Moderately to severely decreased 30 - 44 mL/min/1.73m2 Severely decreased 15 - 29 mL/min/1.73m2 Kidney Failure < 15 mL/min/1.73m2 *Relative to young adult level Estimated glomerular filtration rate is determined by the 2020 CKD-EPI equation recommended by the National Kidney Foundation (A Unifying Approach to GFR Estimation: Recommendations of the NKF-ASK Task Force on Reassessing the Inclusion of Race in Diagnosing Kidney Disease, JASN 2020). The CKD-EPI equation should not be used for patients with unstable renal function and has not been validated in children and those over 70. Current interpretive data was last reviewed 2021. Blood 08/29/2024 7:15 AM REAM CUTTER 08/29/2024 7:35 AM REAM CUTTER Armond L. Sutton PATTERN CUTTER LAB BLOOD ORDERABLES Final Result [facility] ([place]) 1 [facility] Department [place] [address] * eGFR (08/29/2024 7:15 AM REAM CUTTER) eGFR >90 >=60 mL/min/1. 73 m2 Comment: Interpretive Data Reference Interval Normal >/= 90 mL/min/1.73m2 Mildly decreased* 60 - 89 mL/min/1.73m2 Mildly to moderately decreased 45 - 59 mL/min/1.73m2 Moderately to severely decreased 30 - 44 mL/min/1.73m2 Severely decreased 15 - 29 mL/min/1.73m2 Kidney Failure < 15 mL/min/1.73m2 *Relative to young adult level Estimated glomerular filtration rate is determined by the 2020 CKD-EPI equation recommended by the National Kidney Foundation (A Unifying Approach to GFR Estimation: Recommendations of the NKF-ASK Task Force on Reassessing the Inclusion of Race in Diagnosing Kidney Disease, JASN 2020). The CKD-EPI equation should not be used for patients with unstable renal function and has not been validated in children and those over 70. Current interpretive data was last reviewed 2021. Blood 08/29/2024 7:15 AM REAM CUTTER 08/29/2024 7:35 AM REAM CUTTER us Dione Fernandez PATTERN CUTTER LAB BLOOD ORDERABLES Final Result [facility] ([place]) 1 [facility] Department [place] [address] * Differential, auto (08/29/2024 7:15 AM REAM CUTTER) Neutrophil abs 2.9 1.5 - 6.5 K/cumm Imm gran abs 0.0 0.0 - 0.1 K/cumm [facility] ([place]) Lymphocyte abs 3.1 0.8 - 3.3 K/cumm [facility] ([place]) Monocyte abs 0.5 0.2 - 0.8 K/cumm [facility] ([place]) Eosinophil abs 0.2 0.0 - 0.5 K/cumm [facility] ([place]) Basophil abs 0.0 0.0 - 0.1 K/cumm [facility] ([place]) Neutrophil pct 42.1 % [facility] ([place]) Comment: Interpretive Data Percent cell count reference ranges are not reported, since discordance with absolute values may lead to misinterpretation of CBC data. Current Interpretive Data was last revised on 2017. Imm gran pct 0.3 % [facility] ([place]) Comment: Interpretive Data Percent cell count reference ranges are not reported, since discordance with absolute values may lead to misinterpretation of CBC data. Current Interpretive Data was last revised on 2017. Lymphocyte pct 45.7 % [facility] ([place]) Comment: Interpretive Data Percent cell count reference ranges are not reported, since discordance with absolute values may lead to misinterpretation of CBC data. Current Interpretive Data was last revised on 2017. Monocyte pct 7.9 % [facility] ([place]) Comment: Interpretive Data Percent cell count reference ranges are not reported, since discordance with absolute values may lead to misinterpretation of CBC data. Current Interpretive Data was last revised on 2017. Eosinophil pct 3.4 % [facility] ([place]) Comment: Interpretive Data Percent cell count reference ranges are not reported, since discordance with absolute values may lead to misinterpretation of CBC data. Current Interpretive Data was last revised on 2017. Basophil pct 0.6 % [facility] ([place]) Comment: Interpretive Data Percent cell count reference ranges are not reported, since discordance with absolute values may lead to misinterpretation of CBC data. Current Interpretive Data was last revised on 2017. Blood 08/29/2024 7:15 AM REAM CUTTER 08/29/2024 7:35 AM REAM CUTTER us Armond Nettles PATTERN CUTTER LAB BLOOD ORDERABLES Final Result [facility] ([place]) 1 [facility] Department [place] [address] * Differential, auto (08/29/2024 7:15 AM REAM CUTTER) Neutrophil abs 2.9 1.5 - 6.5 K/cumm Imm gran abs 0.0 0.0 - 0.1 K/cumm [facility] ([place]) Lymphocyte abs 3.1 0.8 - 3.3 K/cumm [facility] ([place]) Monocyte abs 0.6 0.2 - 0.8 K/cumm [facility] ([place]) Eosinophil abs 0.2 0.0 - 0.5 K/cumm [facility] ([place]) Basophil abs 0.0 0.0 - 0.1 K/cumm [facility] ([place]) Neutrophil pct 42.0 % [facility] ([place]) Comment: Interpretive Data Percent cell count reference ranges are not reported, since discordance with absolute values may lead to misinterpretation of CBC data. Current Interpretive Data was last revised on 2017. Imm gran pct 0.3 % [facility] ([place]) Comment: Interpretive Data Percent cell count reference ranges are not reported, since discordance with absolute values may lead to misinterpretation of CBC data. Current Interpretive Data was last revised on 2017. Lymphocyte pct 45.4 % [facility] ([place]) Comment: Interpretive Data Percent cell count reference ranges are not reported, since discordance with absolute values may lead to misinterpretation of CBC data. Current Interpretive Data was last revised on 2017. Monocyte pct 8.4 % [facility] ([place]) Comment: Interpretive Data Percent cell count reference ranges are not reported, since discordance with absolute values may lead to misinterpretation of CBC data. Current Interpretive Data was last revised on 2017. Eosinophil pct 3.5 % [facility] ([place]) Comment: Interpretive Data Percent cell count reference ranges are not reported, since discordance with absolute values may lead to misinterpretation of CBC data. Current Interpretive Data was last revised on 2017. Basophil pct 0.4 % [facility] ([place]) Comment: Interpretive Data Percent cell count reference ranges are not reported, since discordance with absolute values may lead to misinterpretation of CBC data. Current Interpretive Data was last revised on 2017. Blood 08/29/2024 7:15 AM REAM CUTTER 08/29/2024 7:35 AM REAM CUTTER us Dione Fernandez PATTERN CUTTER LAB BLOOD ORDERABLES Final Result [facility]OT [facility] ([place]) 1 [facility] [place] [address] * Iron profile w/ IBC (08/29/2024 7:15 AM REAM CUTTER) Pathologist [facility] Iron 60 35 - 145 mcg/dL TIBC 291 250 - 400 mcg/dL [facility] ([place]) Transferrin saturation 21 20 - 50 % [facility] ([place]) Blood 08/29/2024 7:15 AM REAM CUTTER 08/29/2024 7:35 AM REAM CUTTER us Armond Nettles PATTERN CUTTER LAB BLOOD ORDERABLES Final Result Performing Organization Address [facility]/ZIP Co de Phone Number [facility] ([place]) 1 [facility] [place] [address] * CBC with auto differential (08/29/2024 7:15 AM REAM CUTTER) Pathologist [facility] WBC 6.9 3.8 - 9.9 K/cumm Hgb 13.6 11.9 - 15.5 g/dL [facility] ([place]) Hct 41.1 35.6 - 45.5 % [facility] ([place]) Plt 222 150 - 400 K/cumm [facility] ([place]) MPV 10.3 9.1 - 12.3 fL [facility] ([place]) RBC 4.72 3.90 - 5.20 M/cumm [facility] ([place]) MCV 87.1 81.3 - 96.4 fL [facility] ([place]) MCH 28.8 27.1 - 33.3 pg [facility] ([place]) MCHC 33.1 32.3 - 35.7 g/dL [facility] ([place]) RDW CV 12.9 11.1 - 14.9 % [facility] ([place]) RDW SD 40.6 35.7 - 48.1 fL [facility] ([place]) NRBC abs 0.00 0.00 - 0.01 K/cumm [facility] ([place]) Blood 08/29/2024 7:15 AM REAM CUTTER 08/29/2024 7:35 AM REAM CUTTER us Armond Nettles PATTERN CUTTER LAB BLOOD ORDERABLES Final Result Performing Organization Address City/[facility]/ZIP Co de Phone Number [facility] ([place]) [facility] [place] [address] * CBC with auto differential (08/29/2024 7:15 AM REAM CUTTER) WBC 6.9 3.8 - 9.9 K/cumm Hgb 13.3 11.9 - 15.5 g/dL [facility] ([place]) Hct 40.0 35.6 - 45.5 % [facility] ([place]) Plt 222 150 - 400 K/cumm [facility] ([place]) MPV 10.0 9.1 - 12.3 fL [facility] ([place]) RBC 4.59 3.90 - 5.20 M/cumm [facility] ([place]) MCV 87.1 81.3 - 96.4 fL [facility] ([place]) MCH 29.0 27.1 - 33.3 pg [facility] ([place]) MCHC 33.3 32.3 - 35.7 g/dL [facility] ([place]) RDW CV 13.0 11.1 - 14.9 % [facility] ([place]) RDW SD 41.1 35.7 - 48.1 fL [facility] ([place]) NRBC abs 0.00 0.00 - 0.01 K/cumm [facility] ([place]) Blood 08/29/2024 7:15 AM REAM CUTTER 08/29/2024 7:35 AM REAM CUTTER us Dione Fernandez PATTERN CUTTER LAB BLOOD ORDERABLES Final Result [facility] ([place]) 1 [facility] [place] [address] * Nicotine metabolite screen, urine (08/29/2024 7:15 AM REAM CUTTER) Pathologist [facility] Nicotine, ur <5.0 <5.0 ng/mL [place] [facility] Cotinine, ur <5.0 <5.0 ng/mL [facility] (ANANTH) Anabasine ur <2.0 <2.0 ng/mL [facility] ([place]) Comment: ADDITIONAL INFORMATION This test was developed and its performance characteristics determined by [facility] in a manner consistent with CLIA requirements. This test has not been cleared or approved by the U.S. Food and Drug Administration. Test Performed by: [facility] [address] [address] Patent Drafter: Rebecca Quinteros Ph.D.; CLIA# [id number] Nornicotine, ur <2.0 <2.0 ng/mL [facility] ([place]) Urine 08/29/2024 7:15 AM REAM CUTTER 08/29/2024 7:37 AM REAM CUTTER Armond Nettles NP LAB URINE ORDERABLES Final Result Performing Organization Address [facility] Co de Phone Number [facility]OT [facility] (ANANTH) 1 [facility] [place] [address] [place] [facility] * (ABNORMAL) Vitamin D 25 hydroxy (08/29/2024 7:15 AM REAM CUTTER) Pathologist [facility] Vitamin D 25-OH 27(L) 30 - 80 ng/mL Blood 08/29/2024 7:15 AM REAM CUTTER 08/29/2024 7:35 AM REAM CUTTER Armond Nettles NP LAB BLOOD ORDERABLES Final Result Performing Organization Address [facility]/ZIP Co de Phone Number MARGOT CASTRO (ANANTH) 1 [facility] [place] [address] * Erythrocyte sedimentation rate (08/29/2024 7:15 AM REAM CUTTER) Erythrocyte sedimentation rate 11 1 - 20 mm/hr Blood 08/29/2024 7:15 AM REAM CUTTER 08/29/2024 7:35 AM REAM CUTTER us Dione Fernandez PATTERN CUTTER LAB BLOOD ORDERABLES Final Result Performing Organization Address [facility]/ZIP Co de Phone Number MARGOT CA[facility]O ([place]) 1 [facility] [place] [address] * CRP (acute phase) (08/29/2024 7:15 AM REAM CUTTER) Pathologist [facility] CRP <3.0 <=10.0 mg/L Blood 08/29/2024 7:15 AM REAM CUTTER 08/29/2024 7:35 AM REAM CUTTER us Dione Fernandez PATTERN CUTTER LAB BLOOD ORDERABLES Final Result Performing Organization Address [facility] Co de Phone Number [facility] ([place]) 1 [facility] [place] [address] * TSH (08/29/2024 7:15 AM REAM CUTTER) Pathologist [facility] Thyroid Stimulating Hormone 0.92 0.30 - 4.20 mcIUnit/mL Blood 08/29/2024 7:15 AM REAM CUTTER 08/29/2024 7:35 AM REAM CUTTER us Armond Nettles PATTERN CUTTER LAB BLOOD ORDERABLES Final Result Performing Organization Address [facility]/ZIP Co de Phone Number [facility] ([place]) 1 [facility] [place] [address] * PTH (08/29/2024 7:15 AM REAM CUTTER) Pathologist [facility] PTH 22 15 - 65 pg/mL Blood 08/29/2024 7:15 AM REAM CUTTER 08/29/2024 7:35 AM REAM CUTTER us Armond Nettles PATTERN CUTTER LAB BLOOD ORDERABLES Final Result Performing Organization Address [facility] Co de Phone Number MARGOT CASTRO ([place]) 1 [facility] [place] [address] * Hemoglobin A1c (08/29/2024 7:15 AM REAM CUTTER) Pathologist [facility] Hgb A1C 5.1 4.0 - 5.6 % Estimated Average Glucose 100 mg/dL [facility] (ANANTH) Comment: The ADA recommends reporting an estimated Average Glucose (eAG) with all Hemoglobin A1c results using the equation derived from a study of 507 normal and diabetic adults. Minority populations were underrepresented and children were not included. (Diabetes Care 31:9928-2833, 2008). The eAG is not equivalent to a fasting glucose. Blood 08/29/2024 7:15 AM REAM CUTTER 08/29/2024 7:35 AM REAM CUTTER Armond Nettles NP LAB BLOOD ORDERABLES Final Result Performing Organization Address [facility] Co de Phone Number MARGOT CASTRO ([place]) 1 [facility] [place] [address] * Ferritin (08/29/2024 7:15 AM REAM CUTTER) [facility] Ferritin 122 15 - 150 ng/mL Blood 08/29/2024 7:15 AM REAM CUTTER 08/29/2024 7:35 AM REAM CUTTER Armond Nettles PATTERN CUTTER LAB BLOOD ORDERABLES Final Result Performing Organization Address [facility] Co de Phone Number MARGOT CASTRO (ANANTH) 1 [facility] [place] [address] * Vitamin B12 (08/29/2024 7:15 AM REAM CUTTER) [facility] Vitamin B12 988 230 - 1,250 pg/mL Blood 08/29/2024 7:15 AM REAM CUTTER 08/29/2024 7:35 AM REAM CUTTER Armond Nettles NP LAB BLOOD ORDERABLES Final Result MARGOT CASTRO (ANANTH) 1 [facility] Department [place] [address] * Lipid panel (08/29/2024 7:15 AM REAM CUTTER) Cholesterol 162 30 - 199 mg/dL Comment: Interpretive Data Ages < or = 19 years Acceptable: <170 mg/dL Borderline high: 170-199 mg/dL High: >or= 200 mg/dL Ages > or = 20 years Desirable: <200 mg/dL Borderline high: 200-239 mg/dL High: >or= 240 mg/dL Literature References: 1. Expert Panel on Integrated Guidelines for Cardiovascular Health and Risk Reduction in Children and Adolescents. Pediatrics 2011;128:S213 2. NCEP Expert Panel. Circulation 2004;110:227 Current Interpretive Data was last revised on 2018. Triglycerides 129 <=149 mg/dL [facility] (ANANTH) Comment: Interpretive Data Ages < or = 9 years Acceptable: <75 mg/dL Borderline high: 75-99 mg/dL High: >or= 100 mg/dL Ages 10 to 20 years Acceptable: <90 mg/dL Borderline high: 90-129 mg/dL High: >or= 130 mg/dL Ages > or = 20 years Desirable: <150 mg/dL Borderline high: 150-199 mg/dL High: 200-499 mg/dL Very high: >or= 499 mg/dL Literature References: 1. Expert Panel on Integrated Guidelines for Cardiovascular Health and Risk Reduction in Children and Adolescents. Pediatrics 2011;128:S213 2. NCEP Expert Panel. Circulation 2004;110:227 Current Interpretive Data was last revised on 2018. HDL 59 >=40 mg/dL MARGOT Catalan (ANANTH) Comment: Interpretive Data Ages < or = 19 years Acceptable: >45 mg/dL Borderline low: 40-45 mg/dL Low: <40 mg/dL Ages > or = 20 years Desirable: >or= 60 mg/dL Low: <40 mg/dL Literature References: 1. Expert Panel on Integrated Guidelines for Cardiovascular Health and Risk Reduction in Children and Adolescents. Pediatrics 2011;128:S213 2. NCEP Expert Panel. Circulation 2004;110:227 Current Interpretive Data was last revised on 2018. LDL, calculated 80 <=129 mg/dL [facility] (ANANTH) Comment: Interpretive Data Ages < or = 19 years Acceptable: <110 mg/dL Borderline high: 110-129 mg/dL High: >or= 130 mg/dL Ages > or = 20 years Optimal: <100 mg/dL Near optimal: 100-129 mg/dL Borderline high: 130-159 mg/dL High: >160 mg/dL Calculated using the Kenyon LDL-C estimating equation. This equation was implemented on 2024. Prior to this date LDL-C was estimated using the Friedewald equation. Literature References: 1. Expert Panel on Integrated Guidelines for Cardiovascular Health and Risk Reduction in Children and Adolescents. Pediatrics 2011;128:S213 2. NCEP Expert Panel. Circulation 2004;110:227 3. Kenyon Solomon et al. MARAL Cardiol. 2019November 21;5(5):540-548. doi: 10.1001/[email or web address].2020.0013 Current Interpretive Data was last revised on 2024. Non-HDL Cholesterol 103 mg/dL [facility] (ANANTH) Comment: Interpretive Data Ages < or = 19 years Acceptable: <120 mg/dL Borderline high: 120-144 mg/dL High: >145 mg/dL Ages > or = 20 years When triglycerides are >200 mg/dL, Non-HDL cholesterol is a secondary target of therapy with treatment goals that are 30 mg/dL greater than the LDL cholesterol target. Literature References: 1. Expert Panel on Integrated Guidelines for Cardiovascular Health and Risk Reduction in Children and Adolescents. Pediatrics 2011;128:S213 2. NCEP Expert Panel. Circulation 2004;110:227 Current Interpretive Data was last revised on 2018. Chol/HDL ratio 3 MELLY CASTRO (ANANTH) Blood 08/29/2024 7:15 AM REAM CUTTER 08/29/2024 7:35 AM REAM CUTTER us Armond Nettles NP LAB BLOOD ORDERABLES Final Result [facility] (ANANTH) 1 [facility] Department [place] [address] * Comprehensive metabolic panel (08/29/2024 7:15 AM REAM CUTTER) Sodium 139 135 - 145 mmol/L Potassium, pl 4.4 3.3 - 4.9 mmol/L [facility] ([place]) Chloride 105 97 - 110 mmol/L [facility] ([place]) CO2 24 22 - 32 mmol/L [facility] ([place]) Anion gap 10 2 - 15 mmol/L [facility] ([place]) BUN 13 6 - 25 mg/dL [facility] ([place]) Creatinine 0.66 0.60 - 1.10 mg/dL [facility] ([place]) Glucose 96 70 - 199 mg/dL [facility] ([place]) Comment: Interpretive Data Fasting glucose >/= 126 mg/dl is diagnostic for diabetes. Fasting is defined as no caloric intake for at least 8 hours. Fasting glucose between 100 mg/dl to 125 mg/dl is diagnostic of prediabetes. In a patient with classic symptoms of hyperglycemia or hyperglycemic crisis, a random glucose >/= 200 mg/dl is diagnostic for diabetes. In the absence of unequivocal hyperglycemia, results should be confirmed by repeat testing. The classification and Diagnosis of Diabetes Diabetes Care 2021; 46: S19-S40. Current interpretive data was last revised 2022. Calcium 9.1 8.5 - 10.3 mg/dL [facility] ([place]) Bilirubin, total 0.2 0.1 - 1.2 mg/dL [facility] ([place]) Protein, pl 6.5 6.5 - 8.5 g/dL [facility] ([place]) Albumin 4.1 3.5 - 5.0 g/dL [facility] ([place]) Alk phos 85 40 - 130 Units/L [facility] ([place]) ALT 24 7 - 45 Units/L [facility] ([place]) AST 20 10 - 45 Units/L [facility] ([place]) Blood 08/29/2024 7:15 AM REAM CUTTER 08/29/2024 7:35 AM REAM CUTTER us Armond Nettles PATTERN CUTTER LAB BLOOD ORDERABLES Final Result [facility] ([place]) 1 [facility] Department [place] [address] * Comprehensive metabolic panel (08/29/2024 7:15 AM REAM CUTTER) Sodium 137 135 - 145 mmol/L Potassium, pl 4.4 3.3 - 4.9 mmol/L [facility] ([place]) Chloride 104 97 - 110 mmol/L [facility] ([place]) CO2 25 22 - 32 mmol/L [facility] ([place]) Anion gap 9 2 - 15 mmol/L [facility] ([place]) BUN 14 6 - 25 mg/dL [facility] ([place]) Creatinine 0.62 0.60 - 1.10 mg/dL [facility] ([place]) Glucose 96 70 - 199 mg/dL [facility] ([place]) Comment: Interpretive Data Fasting glucose >/= 126 mg/dl is diagnostic for diabetes. Fasting is defined as no caloric intake for at least 8 hours. Fasting glucose between 100 mg/dl to 125 mg/dl is diagnostic of prediabetes. In a patient with classic symptoms of hyperglycemia or hyperglycemic crisis, a random glucose >/= 200 mg/dl is diagnostic for diabetes. In the absence of unequivocal hyperglycemia, results should be confirmed by repeat testing. The classification and Diagnosis of Diabetes Diabetes Care 2021; 46: S19-S40. Current interpretive data was last revised 2022. Calcium 9.1 8.5 - 10.3 mg/dL [facility] ([place]) Bilirubin, total <0.2 0.1 - 1.2 mg/dL [facility] ([place]) Protein, pl 6.7 6.5 - 8.5 g/dL [facility] ([place]) Albumin 3.9 3.5 - 5.0 g/dL [facility] ([place]) Alk phos 81 40 - 130 Units/L [facility] ([place]) ALT 23 7 - 45 Units/L [facility] ([place]) AST 20 10 - 45 Units/L [facility] ([place]) Blood 08/29/2024 7:15 AM REAM CUTTER 08/29/2024 7:35 AM REAM CUTTER Dione Fernandez PATTERN CUTTER LAB BLOOD ORDERABLES Final Result MAGROT CASTRO ([place]) 1 [facility] Department [place] [address] * [place] ARTHROCENTESIS ASPIR&/INJ MAJOR JT/BURSA W/O US (08/01/2024 8:00 AM REAM CUTTER) Satya Nice MD - 08/01/2024 8:00 AM REAM CUTTER Blaire Jones NP 08/01/2024 8:24 AM Large Joint (Hip, Knee, Shoulder) Injection: R knee Performed by: Blaire Jones NP Authorized by: Blaire Jones NP Large Joint Injection/Aspiration: Consent Given by: Patient Site marked: the procedure site was marked Timeout: prior to procedure the correct patient, procedure, and site was verified Verbal consent obtained: Yes Supporting Documentation: Indications: Pain Procedure Details: Location: Knee Site: R knee Needle Size: 22 G Approach: Anterolateral Ultrasound guided: No Fluroscopic guidance: No Medications: 2 mL lidocaine 20 mg/mL (2 %); 32 mg triamcinolone acetonide extended release 32 mg Patient tolerance: Patient tolerated the procedure well with no immediate complications Blaire Jones NP IN CLINIC/BEDSIDE ORDER MALLORY Final Result * Hepatitis panel, acute (09/17/2019 2:35 PM REAM CUTTER) Hep A IgM Nonreactive Nonreactive [facility] Comment: Interpretive Data If test is reported as GRAYZONE, new sample should be drawn in two weeks for testing. Current interpretive data was last revised on 2016. Hep B core IgM Nonreactive Nonreactive [facility] Comment: Interpretive Data If test is reported as GRAYZONE, new sample should be drawn for testing. Current interpretive data was last revised on 2016. Hep C Ab Nonreactive Nonreactive [facility] Comment: Interpretive Data Positive results should be confirmed by a molecular method. If positive, a second separately collected sample should be submitted for Hepatitis C Virus (HCV) RNA Detection and Quantitation by Real-Time Reverse American Sign Language Teacher-PCR (RT-PCR). Current interpretive data was last revised on 2016. HepBsAg Nonreactive Nonreactive [facility] Blood specimen (specimen) 09/17/2019 2:35 PM REAM CUTTER 09/17/2019 3:43 PM REAM CUTTER Dione Fernandez NP LAB MICROBIOLOGY - GENERAL ORDERABLES Edited Result - Final [facility] [place] [address] from Last 3 Months or Most Recently Relevant to Health Maintenance Insurance [facility] MEDICARE [facility] MEDICARE MEDICARE [facility] Advance Directives For more information, please contact: [phone] * Full Code (Latest Code Status on File) Date Activated Date Inactivated Comments 10/31/2019 10:42 PM 11/07/2019 4:26 PM Care Teams 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 Relationship Specialty Start Date End Date Elizabeth Jang NP [address] [place] [address] PCP - General Family Medicine 09/07/23 Jennifer Evans, PT Physical Therapist Physical Therapy 06/26/17 Aleshia Haddad, PHARMACY BILLING ADJUDICATOR Physical Therapist Physical Therapy 07/12/17 Roosevelt Hansen PA [address] [place] [id number] Physician Receiving Coordinator Orthopedic Surgery 10/04/17 Fabi Ma, TARYN [address] [place] [id number] Nurse Practitioner Psychiatry 11/09/20 Dione Fernandez NP [address] [place] [address] [address] Nurse Practitioner Rheumatology 11/09/20 Janee Iverson, PT Physical Therapist Physical Therapy 01/05/23 Raeann Kurtz, TARYN [address] [place] [id number] Family Medicine 09/07/23
--- OUTSIDE RECORDS SUMMARY | 2024-10-28 18:08 | XMS_ITS | Clinical Summary ---
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 Name Role Phone Jennifer Evans PT Unavailable Unavailable Aleshia Haddad SUBSTANCE ABUSE THERAPIST Unavailable Unavailable Roosevelt Hansen PA Unavailable [phone] Fabi Ma NP Unavailable [phone] Dione Fernandez INSPECTOR ADVANCED COMPOSITE Unavailable [phone] Janee Iverson PT Unavailable Unavaila Raeann Dickey INSPECTOR ADVANCED COMPOSITE Unavailable [phone] Elizabeth Jang NP Primary Care Provider [phone] Allergies Active Allergy Reactions Criticality Noted Date [...] 09/11/2024 Assessment & Plan (09/11/2024 1:16 PM [employer]): CXR 08/29/24: No acute cardiopulmonary abnormality. EKG 09/11/24 Sinus Rhythm -Poor R-wave progression -nonspecific -consider old anterior infarct. BORDERLINE EKG IMPRESSION 08/29/24: SINUS RHYTHM LOW QRS VOLTAGE IN PRECORDIAL LEADS [QRS DEFLECTION < 1.0 mV IN CHEST LEADS] BORDERLINE ECG NO CHANGE FROM PREVIOUS TRACING NOTED Ordered echo and holter monitor Multiple thyroid nodules 07/30/2024 Assessment & Plan (07/30/2024 1:28 PM [employer]): Ordered yearly ultrasound of her thyroid for recheck on thyroid nodules according to Radiology recommendation Preoperative clearance 07/30/2024 Assessment & Plan (07/30/2024 1:29 PM [employer]): Needs preop workup for bariatric surgery as [...] 12/06/2020 Assessment & Plan (07/30/2024 1:26 PM [employer]): Stable/ Improved. Blood pressure is adequately controlled [...] management Assessment & Plan (07/25/2023 2:34 PM [employer]): Stable/ Improved. Blood pressure is adequately controlled [...] normal. Assessment & Plan (07/05/2022 2:45 PM [employer]): BP Readings from Last 3 Encounters: 07/05/22 [...] medication. Assessment & Plan (08/22/2021 8:13 PM [employer]): Blood pressure was elevated when she was [...] topamax Assessment & Plan (07/25/2023 2:50 PM [employer]): Improved. Continue Topamax at bedtime. Assessment & Plan (03/12/2023 8:04 PM CDT): Improved. Continue Topamax 50 mg at bedtime. She is Imitrex p.r.n. Assessment & Plan (08/22/2021 8:30 PM [employer]): Will restart topamax at HS for migraine [...] the bariatric program through referral from her informatics educator at [facility] and they told her that they are not accepting new patients at the moment. I offered her to the bariatric program here at [facility] through general surgery. Assessment & Plan (09/28/2020 9:31 PM [employer]): Will get x-ray right tib/fib. Osman wrap [...] 06/09/2018 Assessment & Plan (07/30/2024 1:26 PM [employer]): Pursuing bariatric surgery workup. Needs ultrasound of the abdomen and a chest x-ray ordered. She is also on Trulicity from weight management. She is down 6 lb again from last month. Assessment & Plan (07/25/2023 2:49 PM [employer]): She is going to see bariatric surgery [...] Referring her to the bariatric program through [facility] general surgeon here. Unfortunately her weight is likely a barrier and a contributor to her pain. Patient is frustrated as she believes that she can not tolerate any exercise due to her pain and yet she can not get any help because of her weight that she has difficulty getting off because she can not exercise. Assessment & Plan (07/05/2022 2:45 PM [employer]): Wt Readings from Last 3 Encounters: 07/05/22 [...] counseling. Assessment & Plan (08/22/2021 8:44 PM [employer]): BMI Follow-up includes: Discussed that patient will [...] counseling. Assessment & Plan (09/28/2020 9:29 PM [employer]): BMI Follow-up includes: education provided. Assessment & Plan (05/12/2020 10:03 AM CDT): BMI Follow-up includes: exercise counseling. Assessment & Plan (11/06/2018 12:42 PM CDT): BMI Follow-up includes: nutrition counseling. Obstructive sleep apnea 06/09/2018 Overview (09/03/2024): Images from the original note were not included. Sleep study Aug 2021 -- severe JACINTO in supine position. Assessment & Plan (08/29/2024 7:14 PM [employer]): May be a candidate for Zepbound. Defer at this time as she is losing weight with Trulicity. Assessment & Plan (06/09/2018 9:43 PM [employer]): PSG in July 2014 revealed mild obstructive sleep apnea with AHI of 12.0. Currently the patient does not use CPAP mask. [id number] premature ovarian failure 06/08/20 18 Assessment & Plan (06/12/2019 2:50 PM [employer]): Check labs Bilateral primary osteoarthritis of knee 017 Assessment & Plan (01/23/2024 8:24 AM CDT): Right knee is worse than left knee. She is seeing orthopedics today. Causing entire right leg hurt. It is making it harder to swim laps. Assessment & Plan (11/07/2022 2:09 PM CDT): She would an MRI of her knee from Dr. Olsen which is in scanned media. She has a torn meniscus and [...] nexium. Assessment & Plan (06/09/2018 9:45 PM [employer]): Symptoms well controlled. She was advised to continue with omeprazole. Assessment & Plan (06/05/2017 4:52 PM [employer]): Improved with nexium. Continue current dose. F/u [...] disorder Assessment & Plan (07/30/2024 1:27 PM [employer]): This is managed by Psychiatry. She had increased episode of anxiety and had to change medication. She is still trying to manage it. We can closely with psychiatrist Assessment & Plan (01/23/2024 9:19 AM CDT): Stable. States depression goes up and down . Continues with psychiatry at [place]. Answer yes to thinks of suicide at times when asked by medical customer service representative during depression screening. I talked to patient about this. Psychiatrist is aware. Patient has plan in place when she has these thoughts. She gives her medication to a friend. She states it primarily happens when she has to go on prednisone and she is aware of this. She has no active thoughts today Assessment & Plan (07/25/2023 2:48 PM [employer]): Patient has appointment with psychiatrist tomorrow. Follows with [facility] Assessment & Plan (05/19/2022 10:27 AM CDT): [...] Asthma Assessment & Plan (07/30/2024 1:27 PM [employer]): Continue albuterol p.r.n. and DuoNeb p.r.n.. Renewed [...] singulair. Assessment & Plan (06/15/2018 11:53 AM [employer]): Keep kiet upcoming appt with Supervisor [facility] on 06/29/2018. No further prednisone at this time. Rx given for both saline for nebs and Albuterol for nebs. Patient reports improvement on saline-only via nebs. Albuterol nebs q4 hrs prn wheezing, coughing or SOB. Go to nearest ER if S/Sxs worsen. Continue Singulair 10mg qd. Assessment & Plan (06/09/2018 9:54 PM [employer]): Patient has a history of poorly controlled asthma. Currently she is on albuterol inhaler 2 puffs as needed. She has never had a PFT done. Her inhaler technique was reviewed and the technically was clearly explained and demonstrated. PFT, CBC and ABG were ordered. Assessment & Plan (06/05/2017 4:53 PM [employer]): Restart pulmicort to use for another 1-2 weeks while she is recovering from URI. 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 Currently on Plaquenil and [...] 09/28/2020 Assessment & Plan (06/09/2018 9:50 PM [employer]): Weight management counseling was provided for 15 [...] 01/23/2024 Assessment & Plan (09/06/2017 4:01 PM [employer]): Will give diclofenac twice daily for pain. [...] direction. Assessment & Plan (06/05/2017 4:54 PM [employer]): Urine dip was negative. Will send for culture. Hold on treatment until culture returns Equinus contracture of right ankle 04/05/2017 11/07/2022 Other enthesopathy of right foot 04/05/2017 11/07/2022 Plantar fasciitis, left 02/23/201710/22 Overview (09/06/2017): Planter Fascitis Assessment & Plan (02/23/2017 2:23 PM CDT): Will refer to podiatry for evaluation. Dissociative identity disorder 02/23/2017 02/23/2017 Overview (02/23/2017): Dissociative identity disorder Encounters Date Type Department Care Team Description 10/28/2024 Results Follow-Up [facility] Primary Care at [address] [address] Elizabeth Jang NP 10/24/2024 8:30 AM CDT Office Visit [facility] [employer] Technical Officer at [address] [place] [phone] Casey Vasquez NP Tachycardia (Primary Dx); Palpitations; Intermittent palpitations; BMI 50.0-59.9, adult (HCC); Obstructive sleep apnea 10/22/2024 1:30 PM CDT Clinical Support [facility] Nutrition [facility] [address] [place] [address] Office [address], [address] [place] [address] 10/08/2024 12:26 PM CDT - 10/08/2024 11:59 PM CDT Hospital Encounter [facility] Cardiology [address] [place] [address] Tachycardia; Palpitations; Intermittent palpitations Discharge Disposition: Discharge to home or self care 10/08/2024 12:25 PM CDT - 10/08/2024 11:59 PM CDT Hospital Encounter [facility] Cardiology [address] [place] [address] Tachycardia; Palpitations; Intermittent palpitations Discharge Disposition: Discharge to home or self care 10/08/2024 Results Follow-Up [facility] Primary Care at [address] [phone] Elizabeth Jang NP 09/24/2024 1:00 PM [employer] Clinical Support [facility] [address] [place] [address] Office Building [address], [address] [place] [address] Encounter for medication monitoring (Primary Dx) 09/20/2024 Orders Only [facility] [address] [place] [address] [address], [address] [place] [address] Whitney Bear MD Insulin resistance 09/16/2024 Telephone [facility] [address] [place] [address] [address] Building [address], [address] [place] [address] Anjelica Coats CPhT Prior Auth (zepbound) 09/11/2024 1:00 PM [employer] Office Visit [facility] Primary Care at [address] [phone] Elizabeth Jang NP Tachycardia (Primary Dx); Palpitations; Intermittent palpitations 09/11/2024 Nurse Triage [facility] Primary Care at [address] [phone] Elizabeth Jang NP 09/05/2024 11:00 AM [employer] Office Visit [facility] Rheumatology [address] [facility] 2nd Floor [address] [place] [address] Dione Fernandez NP Rheumatoid arthritis involving multiple sites, unspecified whether rheumatoid factor present (HCC) (Primary Dx) 09/05/2024 10:30 AM [employer] Infusion [facility] Infusion Therapy [address] [facility] 2nd [address] [place] [address] COVID-19 virus infection (Primary Dx); Rheumatoid arthritis involving multiple sites, unspecified whether rheumatoid factor present (HCC) 09/03/2024 Orders Only [facility] [address] [facility] Medical Office Building [address], [address] [place] [id number] Whitney Bear MD Obstructive sleep apnea (Primary Dx) 08/29/2024 7:15 AM [employer] - 08/29/2024 11:59 PM [employer] Hospital Encounter [facility] Cardiology [address] [place] [address] Morbid obesity (HCC); BMI 50.0-59.9, adult (HCC); Arthritis; Gastroesophageal reflux disease, unspecified whether esophagitis present; Essential hypertension; Insulin resistance; Obstructive sleep apnea; Stenosis of trachea Discharge Disposition: Discharge to home or self care 08/29/2024 7:10 AM [employer] Lab [address] [address] Morbid obesity (HCC); BMI 50.0-59.9, adult (HCC); Arthritis; Gastroesophageal reflux disease, unspecified whether esophagitis present; Essential hypertension; Insulin resistance; Obstructive sleep apnea; Stenosis of trachea; Abnormal finding of blood chemistry, unspecified; History of insulin resistance 08/29/2024 7:07 AM [employer] - 08/29/2024 11:59 PM [employer] Hospital Encounter [address] [address] Preoperative clearance Discharge Disposition: Discharge to home or self care 08/29/2024 7:07 AM [employer] - 08/29/2024 11:59 PM [employer] Hospital Encounter [address] [address] Multiple thyroid nodules Discharge Disposition: Discharge to home or self care 08/29/2024 7:05 AM [employer] Lab [facility] [address] [place] [address] High risk medication use; Rheumatoid arthritis involving multiple sites, unspecified whether rheumatoid factor present (HCC) 08/29/2024 7:02 AM [employer] - 08/29/2024 11:59 PM [employer] Hospital Encounter [facility] Imaging Center 1 [place] [address] Preoperative clearance Discharge Disposition: Discharge to home or self care 08/27/2024 11:00 AM [employer] Office Visit [facility] [address] [facility] Medical Office Building [address], [address] [place] [address] Whitney Bear MD Obstructive sleep apnea (Primary Dx); Weight loss counseling, encounter for; Insulin resistance; Class 3 severe obesity due to excess calories with serious comorbidity and body mass index (BMI) of 50.0 to 59.9 in adult (HCC) 08/26/2024 Telephone [facility] [address] [place] [address] Medical Office Building 4, [address] [place] [address] Carmen López, SUPERVISOR SHIPPING Appointment 08/13/2024 12:30 PM [employer] Clinical Support [facility] Out[facility] Nutrition Counseling [address] [facility] [address] [place] [address] Morbid obesity (HCC); BMI 50.0-59.9, adult (HCC); Arthritis; Gastroesophageal reflux disease, unspecified whether esophagitis present; Essential hypertension; Insulin resistance; Obstructive sleep apnea; Stenosis of trachea 08/01/2024 8:00 AM [employer] Office Visit [facility] Orthopedics and Sports Medicine [address] [facility] [address] [place] [phone] Blaire Jones NP Primary osteoarthritis of right knee (Primary Dx); BMI 50.0-59.9, adult (HCC) 07/31/2024 11:00 AM [employer] Therapy [facility] Therapy [facility] [facility] [address] [place] [address] Annemarie Gonzales DPT Morbid obesity due to excess calories (HCC) (Primary Dx); BMI 50.0-59.9, adult (HCC); Arthritis; Gastroesophageal reflux disease, unspecified whether esophagitis present; Essential hypertension; Insulin resistance; Obstructive sleep apnea; Stenosis of trachea; Morbid obesity (HCC) 07/31/2024 Telephone [facility] Primary Care at [address] [address] Elizabeth Jang NP Medication preference per insurance 07/31/2024 Plan of Care Documentation [facility] [place] [address] 07/30/2024 12:30 PM [employer] Office Visit [facility] Primary Care at [address] [address] Elizabeth Jang NP Essential hypertension [...] bipolar I disorder without psychotic features (HCC) 07/30/2024 Telephone [facility] [address] [facility] Medical Office Building [address], [address] [place] [address] Anjelica Coats CPhT Appointment/Schedule s (Alerted patient that her appt on 07/31 is canceled and she already has an appt scheduled in ) from Last 3 Months Immunizations Immunization Administration Dates Next Due DTP [...] 10/22/1986(Deferred: Other - disease in first grade) Surgical History Surgery Date Site/Laterality Comments CHOLECYSTECTOMY Cholecystectomy KNEE SURGERY 07/24/2005 - 07/23/2006 Knee surgery ENDOMETRIAL ABLATION endometrial ablation: [employer] CATARACT EXTRACTION 07/24/2006 - 07/23/2007 Cataract extraction FOOT SURGERY 06/22/2018 Left UPPER GASTROINTESTINAL ENDOSCOPY 04/23/2020 gerd CATARACT EXTRACTION TRACHEOSTOMY TRACHEAL SURGERY Medical History Medical History Date Comments Attention deficit disorder ADHD Posttraumatic stress disorder Po st-traumatic stress disorder Asthma Asthma History of multiple allergies Al lergies Tension headache Headache, tensi on Tracheal stenosis 2003 GERD (gastroesophageal reflux disease) Bipolar disorder (HCC) Depression Plantar fasciitis Cataract 2006 Suicide ideation Gastric reflux Rheumatoid arthritis (HCC) Osteoarthritis MRSA (methicillin resistant Staphylococcus aureus) Hypertension Equinus contracture of right ankle 04/05/2017 Other enthesopathy of right foot 04/05/2017 Plantar fasciitis, left 02/23/2017 Planter Fascitis Closed head injury 07/13/2021 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 Binge eating disorder Morbid obesity (HCC) 1998 Sleep apnea 2022 Borderline personality disorder (HCC) Family History Medical History Relation Name Comments Crohn's disease Brother 1 Heart disease Brother 2 Fabian Diabetes Maternal Grandfather Riki Diabetes type II Maternal Grandfather Riki Richter betdanny mellitus type 2; Heart attack Maternal Grandfather Riki Hypertension Maternal Grandfather Riki Hyperte nsion; Stroke Maternal Grandfather Riki Stroke; Hypertension Maternal Grandmother Sona Hyperte nsion; Other Maternal Grandmother Sona Headach es, migraines; Parkinsonism Maternal Grandmother Sona confirm ed yesterday Hypertension Mother Alessandra Hypertension; Other Mother Alessandra Headaches, migr aines; Diabetes Other 1 Family history of Diabetes mellitus; Heart disease Other 1 Alcohol abuse Other 2 Arthritis Other 2 Cancer Other 2 Hypertension Other 2 Family history of Hypertension; Mental illness Other 3 Stroke Other 3 Family history of Stroke; Other Other 4 Headaches, migr aines; Arthritis Sister [place] Asthma Sister More Depression Sister More Rheum arthritis Sister [place] Relation Name Status Comments Brother 1 Brother 2 Fabian Father Other Unknown Maternal Grandfather Riki Maternal Grandmother Sona Mother Alessandra Alive Other 1 Other 2 Other 3 Other 4 Sister More Social History Tobacco Use Types Packs/Day Years [...] often do you attend chur ch or jewish services? 1 to 4 times per year 11/01/2019 Do you belong to any clubs o r organizations such as confucianism groups, unions, fraternal or athletic groups, or [...] on file Legal Sex Female 1:17 PM [employer] Gender Identity Not on file Sexual Orientation Not on file Obstetrics History Last Filed Vital Signs Vital Sign Reading Time Taken Comments Blood Pressure 120/87 10/24/2024 8:42 AM CDT Pulse 78 10/24/2024 8:42 AM CDT Temperature 36.4 C (97.6 F) 09/24/2024 12:41 PM [employer] Respiratory Rate 18 10/24/2024 8:42 AM CDT Oxygen Saturation 98% 09/24/2024 12:41 PM [employer] Inhaled Oxygen Concentration - - Weight 138.3 kg (305 lb) 10/24/2024 8:42 AM CDT Height 165.1 cm (5' 5 ) 10/24/2024 8:42 AM CDT Body Mass Index 50.75 10/24/2024 8:42 AM CDT Plan of Treatment Health Maintenance Due Date Last Done Comments Breast Cancer Screening-Mammogram 1982 Cervical Cancer Screening 1982 Zoster Vaccine (1 of 2) 2001 Covid-19 Vaccine (3 - Pfizer risk series) 07/25/2021 06/27/2021, 06/01/2021 Depression Screening 01/22/2025 01/23/2024, 07/25/2023, 07/25/2023, Additional history exists Regular Well Visit/Exam 18-64 01/22/2025 01/23/2024, 05/19/2022, 05/18/2021, Additional history exists DTaP/Tdap/Td Vaccine (7 - Td or Tdap) 05/12/2030 05/12/2020, 02/05/1997, 02/26/1988, Additional history exists Hepatitis B Screening Completed 06/04/1999 , 10/16/1998, 09/16/1998 Hepatitis C Screening Completed 09/17/2019 Pneumococcal vaccine <65 Completed 05/19/2022 Influenza Vaccine Completed 07/30/2024, , 07/24/2023, Additional history exists HPV Vaccines Aged Out No longer eligi ble based on patient's age to complete this topic Varicella Vaccines Discontinued Procedures Procedure Name Priority Date/Time Associated Diagnosis Comments TRANSTHORACIC ECHO (TTE) COMPLETE W DOPPLER/CF WO CONTRAST Routine 10/08/2024 1:23 PM CDT Tachycardia Palpitations Intermittent palpitations MCT - MOBILE CARDIAC TELEMETRY EVENT MONITOR Routine 10/08/2024 12:27 PM CDT Tachycardia Palpitations Intermittent palpitations ECG 12-LEAD Routine 09/11/2024 1:04 PM [employer] Tachycardia H. PYLORI BREATH TEST Routine 08/29/2024 8:30 AM [employer] Morbid obesity (HCC) BMI 50.0-59.9, adult (HCC) Arthritis Gastroesophageal reflux disease, unspecified whether esophagitis present Essential hypertension Insulin resistance Obstructive sleep apnea Stenosis of trachea ECG 12-LEAD Routine 08/29/2024 8:13 AM [employer] Morbid obesity (HCC) BMI 50.0-59.9, adult (HCC) Arthritis Gastroesophageal reflux disease, unspecified whether esophagitis present Essential hypertension Insulin resistance Obstructive sleep apnea Stenosis of trachea US ABDOMEN COMPLETE Schedule Routine, Read Routine (OP Routine) 08/29/2024 8:05 AM [employer] Preoperative clearance US THYROID Schedule Routine, Read Routine (OP Routine) 08/29/2024 8:05 AM [employer] Multiple thyroid nodules XR CHEST PA LATERAL 2 VIEWS Schedule Routine, Read Routine (OP Routine) 08/29/2024 7:29 AM [employer] Preoperative clearance EGFR Routine 08/29/2024 7:15 AM [employer] Morbid obesity (HCC) BMI 50.0-59.9, adult (HCC) Arthritis Gastroesophageal reflux disease, unspecified whether esophagitis present Essential hypertension Insulin resistance Obstructive sleep apnea Stenosis of trachea EGFR Routine 08/29/2024 7:15 AM [employer] High risk medication use DIFFERENTIAL AUTO Routine 08/29/2024 7:1 5 AM [employer] Morbid obesity (HCC) BMI 50.0-59.9, adult (HCC) Arthritis Gastroesophageal reflux disease, unspecified whether esophagitis present Essential hypertension Insulin resistance Obstructive sleep apnea Stenosis of trachea DIFFERENTIAL AUTO Routine 08/29/2024 7:1 5 AM [employer] High risk medication use CBC WITH AUTO DIFFERENTIAL Routine 08/29/2024 7:15 AM [employer] Morbid obesity (HCC) BMI 50.0-59.9, adult (HCC) Arthritis Gastroesophageal reflux disease, unspecified whether esophagitis present Essential hypertension Insulin resistance Obstructive sleep apnea Stenosis of trachea COMPREHENSIVE METABOLIC PANEL Routine 08/29/2024 7:15 AM [employer] Morbid obesity (HCC) BMI 50.0-59.9, adult (HCC) Arthritis Gastroesophageal reflux disease, unspecified whether esophagitis present Essential hypertension Insulin resistance Obstructive sleep apnea Stenosis of trachea HEMOGLOBIN A1C Routine 08/29/2024 7:15 AM [employer] Morbid obesity (HCC) BMI 50.0-59.9, adult (HCC) Arthritis Gastroesophageal reflux disease, unspecified whether esophagitis present Essential hypertension Insulin resistance Obstructive sleep apnea Stenosis of trachea Abnormal finding of blood chemistry, unspecified TSH Routine 08/29/2024 7:15 AM [employer] Morbid obesity (HCC) BMI 50.0-59.9, adult (HCC) Arthritis Gastroesophageal reflux disease, unspecified whether esophagitis present Essential hypertension Insulin resistance Obstructive sleep apnea Stenosis of trachea LIPID PANEL Routine 08/29/2024 7:15 AM [employer] Morbid obesity (HCC) BMI 50.0-59.9, adult (HCC) Arthritis Gastroesophageal reflux disease, unspecified whether esophagitis present Essential hypertension Insulin resistance Obstructive sleep apnea Stenosis of trachea PTH Routine 08/29/2024 7:15 AM [employer] Morbid obesity (HCC) BMI 50.0-59.9, adult (HCC) Arthritis Gastroesophageal reflux disease, unspecified whether esophagitis present Essential hypertension Insulin resistance Obstructive sleep apnea Stenosis of trachea VITAMIN D 25 HYDROXY Routine 08/29/2024 7:15 AM [employer] Morbid obesity (HCC) BMI 50.0-59.9, adult (HCC) Arthritis Gastroesophageal reflux disease, unspecified whether esophagitis present Essential hypertension Insulin resistance Obstructive sleep apnea Stenosis of trachea VITAMIN B12 Routine 08/29/2024 7:15 AM [employer] Morbid obesity (HCC) BMI 50.0-59.9, adult (HCC) Arthritis Gastroesophageal reflux disease, unspecified whether esophagitis present Essential hypertension Insulin resistance Obstructive sleep apnea Stenosis of trachea IRON PROFILE W/ IBC Routine 08/29/2024 7 :15 AM [employer] Morbid obesity (HCC) BMI 50.0-59.9, adult (HCC) Arthritis Gastroesophageal reflux disease, unspecified whether esophagitis present Essential hypertension Insulin resistance Obstructive sleep apnea Stenosis of trachea History of insulin resistance FERRITIN Routine 08/29/2024 7:15 AM [employer] Morbid obesity (HCC) BMI 50.0-59.9, adult (HCC) Arthritis Gastroesophageal reflux disease, unspecified whether esophagitis present Essential hypertension Insulin resistance Obstructive sleep apnea Stenosis of trachea Abnormal finding of blood chemistry, unspecified NICOTINE METABOLITE SCREEN, URINE Routine 08/29/2024 7:15 AM [employer] Morbid obesity (HCC) BMI 50.0-59.9, adult (HCC) Arthritis Gastroesophageal reflux disease, unspecified whether esophagitis present Essential hypertension Insulin resistance Obstructive sleep apnea Stenosis of trachea CRP (ACUTE PHASE) Routine 08/29/2024 7:1 5 AM [employer] Rheumatoid arthritis involving multiple sites, unspecified whether rheumatoid factor present (HCC) ERYTHROCYTE SEDIMENTATION RATE Routine 08/29/2024 7:15 AM [employer] Rheumatoid arthritis involving multiple sites, unspecified whether rheumatoid factor present (HCC) COMPREHENSIVE METABOLIC PANEL Routine 08/29/2024 7:15 AM [employer] High risk medication use CBC WITH AUTO DIFFERENTIAL Routine 08/29/2024 7:15 AM [employer] High risk medication use SD ARTHROCENTESIS ASPIR&/INJ MAJOR JT/BURSA W/O US Routine 08/01/2024 8:00 AM [employer] Primary osteoarthritis of right knee HEPATITIS PANEL, ACUTE Routine 09/17/2019 2:35 PM [employer] Arthralgia, unspecified joint from Last 3 Months or Most Recently Relevant to Health Maintenance Results * TRANSTHORACIC ECHO (TTE) COMPLETE W DOPPLER/CF WO CONTRAST (10/08/2024 1:23 PM CDT) Anatomical Region Laterality Modality Ultrasound 10/08/2024 12:0 4 PM CDT Narrative 10/08/2024 3:[address] [address] Echocardiogram Report Patient Name: RODRÍGUEZ THOMASON : [...] ACS MM 1.86 cm MV A Peak Barertt 0.67 m/s [ 1.00 - 1.20 ] [...] Procedure Note Santiago Brown MD - 10/08/[address] [address] Echocardiogram Report Patient Name: RODRÍGUEZ THOMASON : 1980 Study Date: 10/08/2024 12:04:44 PM Gender: F Tech: AA Location: echo room 1 Ref Provider: ELIZABETH JANG Height(Cm): 165 BSA: 2.54 Weight(Kg): 140.6 Quality: Good Order Provider: ELIZABETH AJNG PROCEDURES: Echocardiographic Report: Transthoracic echocardiogram with complete [...] PM CDT Narrative 10/26/2024 3:05 PM [address]T [address] [place] [address] EVENT MONITOR Patient Name: JYOTSNA, RODRÍGUEZ, L : 1980 Study Date: 2024-10-21 11:59:00 [...] Electronically Signed By: Juan Jose Islas MD, [facility] 2024-10-26 9:16:04 PM CDT Procedure Note Carley-Imtiaz Brooke MD / Juan Jose Islas MD - 10/28/[address] [address] EVENT MONITOR Patient Name: RODRÍGUEZ THOMASONRenato : 1980 Study Date: 2024-10-21 11:59:00 PM [...] Electronically Signed By: Juan Jose Islas MD, [facility] 2024-10-26 9:16:04 PM CDT us Elizabeth Jang NP CV CARDIAC SERVICES PROCEDURE S Edited * ECG 12 lead (09/11/2024 1:04 PM [employer]) us Elizabeth Jang NP ECG ORDERABLES Final Result * H. pylori breath test (08/29/2024 8:30 AM [employer]) H. pylori, breath test Negative Negative [facility] ref Lab Comment: Result indicates the absence of current Helicobacter pylori infection. Test Performed by: [place] [address] Coat Hanger Shaper Machine Operator: Rebecca Quinteros Ph.D.; CLIA# [id number] Breath 08/29/2024 8:30 AM [employer] 08/29/2024 8:42 AM [employer] Armond Nettles NP LAB BODY FLUIDS AND STOOLS ORDERABLES Final Result [facility] [place]) 1 [facility] [place] [address] [facility] ref [facility] * ECG 12 lead (08/29/2024 8:13 AM [employer]) 08/29/2024 8:11 AM [employer] Narrative [facility] - 08/29/2024 11:08 AM [employer] Vent Rate: 65 bpm RR Interval: 916 msec SD Interval: 203 msec QRS Duration: 98 msec QT Interval: 396 msec QTC Interval: 408 msec P-R-T [place]: 48 - 42 - 58 degrees IMPRESSION: SINUS RHYTHM LOW QRS VOLTAGE IN PRECORDIAL LEADS [QRS DEFLECTION < 1.0 mV IN CHEST LEADS] BORDERLINE ECG NO CHANGE FROM PREVIOUS TRACING NOTED Electronically Signed By: Santiago Brown MD us Armond Nettles [employer] ECG ORDERABLES Final Resul t [facility] Blogic [facility] * US Abdomen Complete (08/29/2024 8:05 AM [employer]) Anatomical Region Laterality Modality Abdomen N/A Ultrasound 09/01/2024 1:31 AM [employer] Narrative 09/01/2024 1:33 AM [employer] EXAM DESCRIPTION: US ABDOMEN COMPLETE REASON FOR [...] Gee Dominguez M.D. KT: ALF Report ID: [id number] Reading Location: [id number] Procedure Note Gee Dominguez MD - 09/01/2024 [...] Gee Dominguez M.D. KT: ALF Report ID: [id number] Reading Location: [id number] us Elizabeth Jang NP IMG US PROCEDURES Final Resul t * US Thyroid (08/29/2024 8:05 AM [employer]) Anatomical Region Laterality Modality Head and Neck N/A Ultrasound 09/01/2024 12:0 6 PM [employer] Narrative 09/01/2024 12:10 PM [employer] EXAM DESCRIPTION: US THYROID REASON FOR STUDY: [...] Darryl Marrero D.O. AP: AP Report ID: [id number] Reading Location: [id number] Procedure Note Darryl Marrero, DO - 09/01/2024 [...] Darryl Marrero D.O. AP: AP Report ID: [id number] Reading Location: [place] [address] us Elizabeth Jang NP IMG US PROCEDURES Final Resul t * XR Chest Pa Lateral 2 Views (08/29/2024 7:29 AM [employer]) Anatomical Region Laterality Modality Body, Chest N/A Computed Radiogr aphy 09/01/2024 1:33 AM [employer] Narrative 09/01/2024 1:34 AM [employer] EXAM DESCRIPTION: XR CHEST PA LATERAL 2 [...] Gee Dominguez M.D. KT: ALF Report ID: [id number] Reading Location: [id number] Procedure Note Gee Dominguez MD - 09/01/2024 [...] Gee Dominguez M.D. KT: ALF Report ID: [id number] Reading Location: [id number] Elizabeth Jang NP IMG XR PROCEDURES Final Resul t * eGFR (08/29/2024 7:15 AM [employer]) eGFR >90 >=60 mL/min/1. 73 m2 Comment: [...] of Race in Diagnosing Kidney Disease, JASN 2021). The CKD-EPI equation should not be used for patients with unstable renal function and has not been validated in children and those over 70. Current interpretive data was last reviewed 2021. Blood 08/29/2024 7:15 AM [employer] 08/29/2024 7:35 AM [employer] us Armond Nettles INSPECT[employer] LAB BLOOD ORDERABLES Final Result Performing Organization Address City/State/[facility] Co de Phone Number [facility] [place] 1 [facility] [place] [address] * eGFR (08/29/2024 7:15 AM [employer]) eGFR >90 >=60 mL/min/1. 73 m2 Comment: Interpretive Data Reference Interval Normal >/= 90 mL/min/1.73m2 Mildly decreased* 60 - 89 mL/min/1.73m2 Mildly to moderately decreased 45 - 59 mL/min/1.73m2 Moderately to severely decreased 30 - 44 mL/min/1.73m2 Severely decreased 15 - 29 mL/min/1.73m2 Kidney Failure < 15 mL/min/1.73m2 *Relative to young adult level Estimated glomerular filtration rate is determined by the 202 CKD-EPI equation recommended by the National Kidney Foundation (A Unifying Approach to GFR Estimation: Recommendations of the NKF-ASK Task Force on Reassessing the Inclusion of Race in Diagnosing Kidney Disease, JASN 1). The CKD-EPI equation should not be used for patients with unstable renal function and has not been validated in children and those over 70. Current interpretive data was last reviewed 2021. Blood 08/29/2024 7:15 AM [employer] 08/29/2024 7:35 AM [employer] us Dione Fernandez INSPECTOR [employer] LAB BLOOD ORDERABLES Final Result [facility] [place] 1 [facility] Department [place] [address] * Differential, auto (08/29/2024 7:15 AM [employer]) Neutrophil abs 2.9 1.5 - 6.5 K/cumm [...] revised on 2017. Blood 08/29/2024 7:15 AM [employer] 08/29/2024 7:35 AM [employer] us Armond Nettles INSPECTOR [employer] LAB BLOOD ORDERABLES Final Result [facility] [place] 1 [facility] Department [place] [address] * Differential, auto (08/29/2024 7:15 AM [employer]) Neutrophil abs 2.9 1.5 - 6.5 K/cumm Imm gran abs 0.0 0.0 - 0.1 K/cumm [facility] [place] Lymphocyte abs 3.1 0.8 - 3.3 K/cumm [facility] [place] Monocyte abs 0.6 0.2 - 0.8 K/cumm [...] revised on 2017. Blood 08/29/2024 7:15 AM [employer] 08/29/2024 7:35 AM [employer] us Dione Fernandez INSPECTOR [employer] LAB BLOOD ORDERABLES Final Result [facility] [place] [address] [facility] [place] [address] * Iron profile w/ IBC (08/29/2024 7:15 AM [employer]) [facility] Iron 60 35 - 145 mcg/dL TIBC 291 250 - 400 mcg/dL [facility] ([place]) Transferrin saturation 21 20 - 50 % [facility] [place]) Blood 08/29/2024 7:15 AM [employer] 08/29/2024 7:35 AM [employer] Armond Nettles INSPECTOR [employer] LAB BLOOD ORDERABLES Final Result [facility] ([place] [address] [facility] [place] [address] * CBC with auto differential (08/29/2024 7:15 AM [employer]) WBC 6.9 3.8 - 9.9 K/cumm Hgb 13.6 11.9 - 15.5 g/dL [facility] ([place] Hct 41.1 35.6 - 45.5 % [facility] Plt 222 150 - 400 K/cumm [facility] MPV 10.3 9.1 - 12.3 fL [facility] RBC 4.72 3.90 - 5.20 M/cumm [facility] [place] MCV 87.1 81.3 - 96.4 fL [facility] [place] MCH 28.8 27.1 - 33.3 pg [facility] [place] MCHC 33.1 32.3 - 35.7 g/dL [facility] RDW CV 12.9 11.1 - 14.9 % [facility] RDW SD 40.6 35.7 - 48.1 fL [facility] [place] NRBC abs 0.00 0.00 - 0.01 K/cumm [facility]) Blood 08/29/2024 7:15 AM [employer] 08/29/2024 7:35 AM [employer] us Armond Nettles INSPECTOR [employer] LAB BLOOD ORDERABLES Final Result [facility] 1 [facility] Department of Laboratories [place], [place] [id number] * CBC with auto differential (08/29/2024 7:15 AM [employer]) Pathologist [facility] WBC 6.9 3.8 - 9.9 K/cumm Hgb [...] ([place]) MCH 29.0 27.1 - 33.3 pg [facility] [place]) MCHC 33.3 32.3 - 35.7 g/dL [facility] [place] RDW CV 13.0 11.1 - 14.9 % [facility] [place]) RDW SD 41.1 35.7 - 48.1 fL [facility] [place]) NRBC abs 0.00 0.00 - 0.01 K/cumm [facility]) Blood 08/29/2024 7:15 AM [employer] 08/29/2024 7:35 AM [employer] Dione Fernandez INSPECTOR [employer] LAB BLOOD ORDERABLES Final Result [facility] 1 [facility] Department [place] [address] * Nicotine metabolite screen, urine (08/29/2024 7:15 AM [employer]) Nicotine, ur <5.0 <5.0 ng/mL [facility] ref [facility] Cotinine, ur <5.0 <5.0 ng/mL [facility] ([place]) Anabasine ur <2.0 <2.0 ng/mL [facility] ([place]) Comment: ADDITIONAL INFORMATION This test was developed and its performance characteristics determined by [facility] in a manner consistent with CLIA requirements. This test has not been cleared or approved by the U.S. Food and Drug Administration. Test Performed by: [facility] - [address] [address] Coat Hanger Shaper Machine Operator: Rebecca Quinteros Ph.D.; CLIA# [id number] Nornicotine, ur <2.0 <2.0 ng/mL [facility] ([place]) Urine 08/29/2024 7:15 AM [employer] 08/29/2024 7:37 AM [employer] us Armond Nettles INSPECTOR [employer] LAB URINE ORDERABLES Final Result [facility] ([place]) 1 [facility] [place] [address] [facility] ref Lab * (ABNORMAL) Vitamin D 25 hydroxy (08/29/2024 7:15 AM [employer]) Vitamin D 25-OH 27(L) 30 - 80 ng/mL Blood 08/29/2024 7:15 AM [employer] 08/29/2024 7:35 AM [employer] us Armond Nettles INSPECTOR [employer] LAB BLOOD ORDERABLES Final Result [facility] [place] 1 [facility] [place] [address] * Erythrocyte sedimentation rate (08/29/2024 7:15 AM [employer]) Erythrocyte sedimentation rate 11 1 - 20 mm/hr Blood 08/29/2024 7:15 AM [employer] 08/29/2024 7:35 AM [employer] us Dione Fernandez INSPECTOR [employer] LAB BLOOD ORDERABLES Final Result [facility] ([place] [address] [facility] [place] [address] * CRP (acute phase) (08/29/2024 7:15 AM [employer]) CRP <3.0 <=10.0 mg/L Blood 08/29/2024 7:15 AM [employer] 08/29/2024 7:35 AM [employer] us Dione Fernandez INSPECTOR [employer] LAB BLOOD ORDERABLES Final Result [facility] ([place] [address] [facility] [place] [address] * TSH (08/29/2024 7:15 AM [employer]) Pathologist [facility] Thyroid Stimulating Hormone 0.92 0.30 - 4.20 mcIUnit/mL Blood 08/29/2024 7:15 AM [employer] 08/29/2024 7:35 AM [employer] Armond Nettles NP LAB BLOOD ORDERABLES Final Result Performing Organization Address [facility] Co de Phone Number [facility] 1 [facility] [place] [address] * PTH (08/29/2024 7:15 AM [employer]) Pathologist [facility] PTH 22 15 - 65 pg/mL Blood 08/29/2024 7:15 AM [employer] 08/29/2024 7:35 AM [employer] Armond Nettles NP LAB BLOOD ORDERABLES Final Result Performing Organization Address [facility] de Phone Number [facility] ([place]) 1 [place] [address] * Hemoglobin A1c (08/29/2024 7:15 AM [employer]) [facility] Hgb A1C 5.1 4.0 - 5.6 % Estimated Average Glucose 100 mg/dL [facility] ([place]) Comment: The ADA recommends reporting an estimated Average Glucose (eAG) with all Hemoglobin A1c results using the equation derived from a study of 507 normal and diabetic adults. Minority populations were underrepresented and children were not included. (Diabetes Care 31:4795-8708, 2008). The eAG is not equivalent to a fasting glucose. Blood 08/29/2024 7:15 AM [employer] 08/29/2024 7:35 AM [employer] Armond Nettles NP LAB BLOOD ORDERABLES Final Result Performing Organization Address [facility] Co de Phone Number [facility] ([place] 1 [facility] [place] [address] * Ferritin (08/29/2024 7:15 AM [employer]) Ferritin 122 15 - 150 ng/mL Blood 08/29/2024 7:15 AM [employer] 08/29/2024 7:35 AM [employer] Armond Nettles INSPECTOR [employer]POS[employer] LAB BLOOD ORDERABLES Final Result [facility] 1 [facility] [place] [address] * Vitamin B12 (08/29/2024 7:15 AM [employer]) Vitamin B12 988 230 - 1,250 pg/mL Blood 08/29/2024 7:15 AM [employer] 08/29/2024 7:35 AM [employer] Armond Nettles INSPECTOR [employer] COMPOSITE LAB BLOOD ORDERABLES Final Result Performing Organization Address City/[facility] Co de Phone Number [facility] 1 [facility] [place] [address] * Lipid panel (08/29/2024 7:15 AM [employer]) Cholesterol 162 30 - 199 mg/dL Comment: [...] on 2018. Triglycerides 129 <=149 mg/dL [facility] ([place]) Comment: Interpretive Data Ages < or [...] NCEP Expert Panel. Circulation 2004;110:227 3. Kenyon Lucas al. MARAL Cardiol. 2020 November 21;5(5):540-548. doi: 10.1001/jamacardio.2020.0013 Current Interpretive Data was [...] last revised on 2018. Chol/HDL ratio 3 [facility] ([place]) Blood 08/29/2024 7:15 AM [employer] 08/29/2024 7:35 AM [employer] us Armodn Nettles INSPECTOR [employer]POSITE LAB BLOOD ORDERABLES Final Result [facility] ([place] 1 [facility] [place] [address] * Comprehensive metabolic panel (08/29/2024 7:15 AM [employer]) Sodium 139 135 - 145 mmol/L Potassium, [...] [facility] ([place]) Blood 08/29/2024 7:15 AM [employer] 08/29/2024 7:35 AM [employer] us Armond Nettles INSPECTOR [employer]POSITE LAB BLOOD ORDERABLES Final Result [facility] [place] 1 [facility] Department [place] [address] * Comprehensive metabolic panel (08/29/2024 7:15 AM [employer]) Sodium 137 135 - 145 mmol/L Potassium, [...] [facility] ([place]) Blood 08/29/2024 7:15 AM [employer] 08/29/2024 7:35 AM [employer] us Dione Fernandez NP LAB BLOOD ORDERABLES Final Result [facility] 1 [facility] [place] [address] * SD ARTHROCENTESIS ASPIR&/INJ MAJOR JT/BURSA W/O US (08/01/2024 8:00 AM [employer]) Narrative Satya Pedraza MD - 08/01/2024 8:00 AM [employer] Blaire Jones NP 08/01/2024 8:24 AM Large [...] the procedure well with no immediate complications us Blaire Jones NP IN CLINIC/BEDSIDE ORDER MALLORY Final Result * Hepatitis panel, acute (09/17/2019 2:35 PM [employer]) Hep A IgM Nonreactive Nonreactive [facility] Comment: Interpretive Data If test is reported as GRAYZONE, new sample should be drawn in two weeks for testing. Current interpretive data was last revised on 2016. Hep B core IgM Nonreactive Nonreactive [facility] Comment: Interpretive Data If test is reported as GRAYZONE, new sample should be drawn for testing. Current interpretive data was last revised on 2016. Hep C Ab Nonreactive Nonreactive [facility] Comment: Interpretive Data Positive results should be confirmed by a molecular method. If positive, a second separately collected sample should be submitted for Hepatitis C Virus (HCV) RNA Detection and Quantitation by Real-Time Reverse Riveting Machine Operator-PCR (RT-PCR). Current interpretive data was last revised on 2016. HepBsAg Nonreactive Nonreactive [facility] Blood specimen (specimen) 09/17/2019 2:35 PM [employer] 09/17/2019 3:43 PM [employer] us Dione Fernandez NP LAB MICROBIOLOGY - GENERAL ORDERABLES Edited Result - Final [facility] Department [place] [address] from Last 3 Months or Most Recently Relevant to Health Maintenance Insurance IDPA MEDICARE [facility] MEDICARE MEDICARE [facility] Address: [address] [address] [place] [address] IDPA Advance Directives For more information, please contact: [phone] * Full Code (Latest Code Status on File) Date Activated Date Inactivated Comments 10/31/2019 10:42 PM 11/07/2019 4:26 PM Care Teams Cloth Shrinking Machine Operator Helper Relationship Specialty Start Date End Date Elizabeth Jang INSPECTOR [employer] [address] [place] [address] [place] [address] PCP - General Family Medicine 09/07/23 Jennifer Evans, PT Physical Therapist Physical Therapy 06/26/17 Aleshia Haddad, SUBSTANCE ABUSE THERAPIST Physical Therapist Physical Therapy 07/12/17 Roosevelt Hansen PA [address] [facility] [address] [address] Physician Unloader Operator Orthopedic Surgery 10/04/17 Fabi Ma NP [address], [place] [address] Nurse Practitioner Psychiatry 11/09/20 Dione Fernandez [employer]PECT[employer] [address] [facility], [address] [address] Nurse Practitioner Rheumatology 11/09/20 Janee Iverson, PT Physical Therapist Physical Therapy 01/05/23 Raeann Kurtz NP [address] [place] [address] Family Medicine 09/07/23
--- OUTSIDE RECORDS SUMMARY | 2024-10-28 18:08 | XMS_ITS | Encounter Summary ---
Author Organization [facility] Healthcare Address [address] [place] [address] Care Team Providers Care Equity Research Analyst Name Role Phone Jennifer Evans PT Unavailable Unavailable Aleshia Haddad BIT BENDER Unavailable Unavailable Roosevelt Hansen PA Unavailable [phone] Fabi Ma NP Unavailable [phone] Dione Fernandez ROUTE DELIVERY SERVICE DRIVER Unavailable [phone] Janee Iverson PT Unavailable Unavaila Raeann Dickey ROUTE DELIVERY SERVICE DRIVER Unavailable [phone] Elizabeth Jang NP Primary Care Provider [phone] Encounter Details Date Type Department Care Team (Late st Contact Info) Description 10/28/2024 Results Follow-Up [facility] Medical [facility] Primary Care at [address] [id number] Elizabeth Jang NP [address] [place] [address] [address] [place] [address] Social History Tobacco Use Types [...] often do you attend chur ch or yazidi services? 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 Verbalized understanding. No further questions at this time * Telephone Encounter - Rose Fields MA - 10/28/2024 10:06 AM CDT ----- Message from Elizabeth Jang NP sent at 10/28/2024 8:33 AM CDT ----- Normal event monitor. No a-fib. * Result Encounter Note - Elizabeth Jang NP - 10/28/2024 8:33 AM CDT Normal event monitor. No a-fib. documented in this encounter Plan of Treatment Not on file documented as of this encounter Visit Diagnoses Not on filedocumented in this encounter Care Teams Equity Research Analyst Relationship Specialty Start Date End Date Elizabeth Jang NP [address] [place] [address] PCP - General Family Medicine 09/07/23 Jennifer Evans, YVONNE Physical Therapist Physical Therapy 06/26/17 Aleshia Haddad, DEMETRIUS Physical Therapist Physical Therapy 07/12/17 Roosevelt Hansen PA [address] [place] [address] DR BRYSON [address] [place] [id number] Physician Fruit Farmer Orthopedic Surgery 10/04/17 Fabi Ma NP [address] [place] [address] Nurse Practitioner Psychiatry 11/09/20 Dione Fernandez NP [address] [place] [address] RHEUMATOLOGY, [address] [address] Nurse Practitioner Rheumatology 11/09/20 Janee Iverson, PT Physical Therapist Physical Therapy 01/05/23 Raeann Kurtz, TARYN [address] [place] [id number] Family Medicine 09/07/23 documented as of this encounter
--- NOTE | 2024-10-28 19:05 | ED.URI ---
HPI - URI/Sore Throat General Chief Complaint: Upper Respiratory Infection Stated Complaint: Shortness of Breath Source: patient and RN notes reviewed Mode of arrival: ambulatory Limitations: no limitations History of Present Illness HPI Narrative: 44-year-old female presents Express Care complaining with upper respiratory symptoms and wheezing. Patient history of history of tracheal stenosis and said she had surgical repair and previous trach. Patient states she has upper respiratory symptoms for the last 2 days and says it is common for her to develop wheezing in her trachea from the stenosis when she is sick. She says she has a sore throat and a cough. She denies any respiratory distress and states that her breathing is worse with exertion. He denies any congestion, earache, fevers, body aches, chills. She uses atrovent nebulizer and albuterol p.r.n. inhaler as needed for shortness of breath and wheezing which she says gives her some relief.. She denies any chest pain. Related Data Home Medications ?Medication ?Instructions ?Recorded ?Confirmed ?Last Taken ?Type hydroxychloroquine 200 mg tablet 200 mg PO BID 04/28/20 07/27/22 Unknown History pantoprazole 40 mg tablet,delayed 40 mg PO DAILY 04/28/20 07/27/22 Unknown History release escitalopram oxalate 20 mg tablet 20 mg PO DAILY 09/17/21 07/27/22 Unknown History leflunomide 20 mg tablet 20 mg PO DAILY 09/17/21 07/27/22 Unknown History metformin 500 mg tablet,extended 500 mg PO DAILY 09/17/21 07/27/22 Unknown History release 24 hr topiramate 50 mg tablet 50 mg PO DAILY 09/17/21 07/27/22 Unknown History enalapril maleate 5 mg tablet 5 mg PO BID 11/16/21 07/27/22 Unknown History ergocalciferol (vitamin D2) 1,250 1,250 mcg PO WEEKLY 11/16/21 07/27/22 Unknown History mcg (50,000 unit) capsule cariprazine 3 mg capsule (Vraylar) 3 mg PO HS 06/28/22 07/27/22 Unknown History pregabalin 75 mg capsule 75 mg PO BID 06/28/22 07/27/22 Unknown History Allergies Allergy/AdvReac Type Severity Reaction Status Date / Time duloxetine Allergy Severe Anaphylactic Verified 07/27/22 11:36 Shock sertraline Allergy Severe Anaphylactic Verified 07/27/22 11:36 Shock Penicillins Allergy Mild Rash Verified 07/27/22 11:36 Sulfa (Sulfonamide AdvReac Mild Confusion Verified 07/27/22 11:36 Antibiotics) sulfamethoxazole AdvReac Unknown Confusion Verified 07/27/22 11:36 trimethoprim AdvReac Unknown Confusion Verified 07/27/22 11:36 cephalexin (From Keflex) AdvReac Confusion Verified 07/27/22 11:36 Review of Systems Review of Systems: CONSTITUTIONAL: Denies fever, chills, or sweats. EYES: Denies visual changes, redness, or discharge. ENT: Denies rhinorrhea, congestion, difficulty swallowing, or otalgia. Positive for sore throat CARDIOVASCULAR: Denies chest pain, palpitations, or edema. RESPIRATORY: Denies dyspnea. Positive for cough and wheezing. GASTROINTESTINAL: Denies abdominal pain, nausea, vomiting, or diarrhea. GENITOURINARY: Denies dysuria or hematuria. SKIN: Denies rash or itching. MUSCULOSKELETAL: Denies back pain, joint pain, or myalgia. NEUROLOGIC: Denies headache, numbness, or weakness. PSYCHIATRIC: Denies anxiety or depression. All other systems reviewed are negative, except as documented in HPI. PMFSH Comments At the time of my signature, I reviewed and agree with the nursing past medical, surgical, social, and family history. There is no relevant family history pertinent to the patient complaint. Exam Narrative: GENERAL: This is a well-nourished, well-developed adult, in no apparent distress. They are non ill-appearing, nontoxic appearing. Patient is obese. Physical exam may be limited due to large body habitus. HEAD: normocephalic, atraumatic. EYES: Sclera clear/white. Vision is grossly intact. EARS: External ears normal, auditory canals clear and without drainage, TMs normal without perforation. Hearing grossly intact. NOSE: External nose normal with no obvious nasal discharge, nares without redness, no rhinorrhea. THROAT: Mucous membranes moist, posterior pharynx with mild erythema. Uvula midline. NECK: Neck supple, non-tender without lymphadenopathy, swelling, masses or thyromegaly. CARDIOVASCULAR: Regular rate and rhythm without murmurs, gallops, or rubs. RESPIRATORY: Referred upper airway sounds heard in the upper lobes. Lungs are clear to auscultation. Breath sounds equal bilaterally. GASTROINTESTINAL: Abdomen abdomen is large. SKIN: warm, Dry, intact with no suspicious lesions or rash, good texture and turgor. NEURO: awake, alert, and oriented to person, place and time. There were no obvious focal neurologic abnormalities. EXTREMITIES: No joint tenderness, effusion, or edema noted. Course Course Emergency Course: Patient is aware of diagnosis, understands and agrees to treatment plan. Anticipatory guidance given. Patient agrees to follow-up as directed and is aware of reasons to seek care at the emergency department. Portions of this record may have been created with voice recognition software Level of Care: Express Care Visit Vital Signs Vital signs: Vital Signs Temperature 97.1 F L 10/28/24 16:59 Pulse Rate 88 10/28/24 16:59 Respiratory Rate 20 10/28/24 16:59 Blood Pressure 136/83 10/28/24 16:59 Pulse Oximetry 97 10/28/24 16:59 Oxygen Delivery Room Air 10/28/24 16:59 Temperature 97.1 F L 10/28/24 16:59 Pulse Rate 88 10/28/24 16:59 Respiratory Rate 20 10/28/24 16:59 Blood Pressure 136/83 10/28/24 16:59 Pulse Oximetry 97 10/28/24 16:59 Oxygen Delivery Room Air 10/28/24 16:59 Reviewed MDM - URI/Sore Throat MDM Narrative Medical decision making narrative: Given patient's history of tracheal stenosis and her worsening upper airway sounds will treat her with a course of prednisone to help with inflammation. Likely her symptoms are viral in etiology. She is advised if her symptoms become more recurrent she may need to go see an ENT or net software engineer referred by her PCP. Discussed physical exam findings. Advised supportive measures and signs/symptoms to go to the ER. Pt is appropriate for outpt treatment and f/u. Differential Diagnosis Differential diagnosis: Likely upper respiratory infection, bronchitis and pharyngitis Critical Care Time Critical Care Time Critical Care Time: No Discharge Plan Discharge Clinical Impression: Upper respiratory infection Qualifiers: URI type: unspecified viral URI Qualified Code(s): J06.9 - Acute upper respiratory infection, unspecified Patient Disposition: Home Condition: Stable Instructions: Viral Syndrome (ED) Additional Instructions: Please take prednisone in the morning and with food. Please take as directed. Viral illness may last between 7-21 days; antibiotics do not cure viral illness and are NOT recommended at this time. Recommend antihistamine such as Benadryl at night time and Zyrtec or Meg during the day Cough syrup may cause drowsiness; avoid driving or take it at night time. Also, recommend symptomatic treatment includes: rest, fluids, and increase humidity of the air at home. Recommend Acetaminophen as directed on the bottle to reduce fever, pain, headache. Please schedule a follow-up visit with your personal physician for further evaluation and treatment within 3-5days. If you developed worsening breathing, unable to speak in full sentences, excessive drooling, or any other concerns please go to the emergency department for further evaluation. Your blood pressure was elevated above 120/80 today at urgent care. This puts you above the threshold for follow-up. Please schedule a follow-up with your personal physician as soon as possible for further evaluation and treatment even blood pressures exceeding 120/80 may indicate pre-hypertension. Patient Language: Citizen [place] Prescriptions: New prednisone 10 mg tablet 30 mg PO DAILY 5 Days Qty: 15 0RF No Action leflunomide 20 mg tablet 20 mg PO DAILY metformin 500 mg tablet extended release 24 hr 500 mg PO DAILY escitalopram oxalate 20 mg tablet 20 mg PO DAILY topiramate 50 mg tablet 50 mg PO DAILY pantoprazole 40 mg tablet,delayed release (DR/EC) 40 mg PO DAILY hydroxychloroquine 200 mg tablet 200 mg PO BID ergocalciferol (vitamin D2) 1,250 mcg (50,000 unit) capsule 1,250 mcg PO WEEKLY enalapril maleate 5 mg tablet 5 mg PO BID pregabalin 75 mg capsule 75 mg PO BID Vraylar 3 mg capsule 3 mg PO Follow-up/Referrals: Suhail,ROSSANA Cooper [Primary Care Provider] - Time of Disposition: 17:35
== END 2024-10-28 17:40 | disposition home or self-care (01) ==
PROVIDERS: PCP Nurse Practitioner Family
DX: J06.9 Acute upper respiratory infection, unspecified (principal); J45.909 Unspecified asthma, uncomplicated; M19.90 Unspecified osteoarthritis, unspecified site; E88.819 Insulin resistance, unspecified; N80.9 Endometriosis, unspecified
CPT/HCPCS: 99213; G0463